=== PATIENT | male | born 1940 | race Caucasian/White ===

== ENCOUNTER 2021-05-14 14:56 | Observation (INO) | payer MEDICARE, SELFPAY ==
[2021-05-14] VITALS (26 sets, daily range): BP systolic 145–193; BP diastolic 72–95; PULSE 62–87; RESP 10–22; TEMP 36.3; O2SAT 92–99
--- NOTE | ~2021-05-14 | CT_ITS ---
EXAMINATION: CTA chest PE protocol DATE: 05/14/2021 18:35 WELFARE WORKER INDICATION: Chest pain and shortness of breath TECHNIQUE: Computed tomographic angiography (CTA) of the chest was performed with 100 mL Omnipaque-35 0 intravenous contrast. The dose-length product was 548.80 mGy-cm. Maximum intensity projection 3D-re constructions of the aorta and other arteries were constructed by the technologist on a separate work station.. Automated exposure control and iterative reconstruction technique were employed. COMPARISON: Chest dated 05/14/2021. FINDINGS: Study is technically adequate without evidence for pulmonary embolism. No significant pleur al or pericardial effusion. Heart size normal. No thoracic lymphadenopathy. No evidence for aortic an eurysm. There is atherosclerosis of the aorta and coronary arteries. No dissection identified. There are multiple liver and right renal cyst. There is an accessory splenule medial to the spleen. There i s moderate-severe emphysema. No endobronchial lesions. No pneumothorax. No focal airspace disease. Th ere is moderate thoracic spondylosis. IMPRESSION: 1. No acute cardiopulmonary disease. No pneumothorax. 2: Emphysema. Reviewed, dictated and finalized at location A. ARE WORKER
--- NOTE | ~2021-05-14 | XR_ITS ---
EXAMINATION: XR chest 2V 05/14/2021 15:40 INDICATION: Chest pain PROCEDURE: 2 view chest COMPARISON: 04/15/2018 FINDINGS: The lungs are clear. The cardiomediastinal silhouette is within normal limits. There are no pleural effusions. There is no pneumothorax suspected. IMPRESSION: 1: NO ACUTE CARDIOPULMONARY DISEASE. Reviewed, dictated and finalized at location A. ALS MANAGER
--- NOTE | 2021-05-14 15:01 | ECG_ITS ---
Measurements Intervals [place] Rate: 73 P: 70 RI: 146 QRS: 55 QRSD: 109 T: 59 QT: 373 QTc: 412 Interpretive Statements SINUS RHYTHM VENTRICULAR PREMATURE COMPLEX LOW QRS VOLTAGE IN LIMB LEADS BORDERLINE R WAVE PROGRESSION, ANTERIOR LEADS BORDERLINE T WAVE ABNORMALITY- INFERIOR LEADS BORDERLINE ECG Electronically Signed On 05-14-2021 15:51:37 MENTAL HYGIENE CONSULTANT by Thomas Medina D.O.
[2021-05-14 15:27] LABS: Basophils Absolute Auto 0.1 K/mm3 (0.0-0.1); Basophils Percent Auto 0.9 % (0.2-1.2); Eosinophils Absolute Auto 0.3 K/mm3 (0-0.3); Eosinophils Percent Auto 5.7 % (0-4.4); Hematocrit 43.4 % (42.0-52.0); Hemoglobin 13.8 g/dL (14.0-18.0); Immature Granulocyte Absolute 0.02 K/mm3 (0.00-0.031); Immature Granulocyte Percent A 0.4 % (0-0.5); Lymphocytes Absolute Auto 1.13 K/mm3 (0.9-3.2); Mean Corpuscular HGB Conc 31.8 g/dl (32-36); Mean Corpuscular Hemoglobin 29.4 pg (26-34); Mean Corpuscular Volume 92.5 fl (80-100); Mean Platelet Volume 10.1 fl (7.4-10.4); Monocytes Absolute Auto 0.5 K/mm3 (0.1-0.6); Monocytes Percent Auto 8.7 % (2.6-8.5); Neutrophils Absolute Auto 3.7 K/mm3 (1.3-6.7); Neutrophils Percent Auto 64.3 % (45.5-73.1); Platelet Count Result 155 k/mm3 (150-375); Red Blood Count 4.69 M/mm3 (4.6-6.20); White Blood Count 5.7 K/mm3 (4.5-10.0)
[2021-05-14 15:36] LABS: Alanine Aminotransferase 28 U/L (4-50); Albumin Level 4.5 g/dL (3.5-5.1); Alkaline Phosphatase 111 U/L (38-126); Anion Gap 6 mmol/L (8-16); Aspartate Amino Transferase 25 U/L (17-59); Bilirubin,Total 0.4 mg/dL (0.2-1.3); Blood Urea Nitrogen 25 mg/dL (9-20); Calcium 9.5 mg/dL (8.4-10.2); Carbon Dioxide 25 mmol/L (22-30); Chloride 108 mmol/L (98-107); Estimated CRCL calculation 34 ml/min; Estimated Glomerular Filt Rate 42; Glucose 211 mg/dL (65-110); INR 1.1; Lipase 190 U/L (23-300); Potassium 4.5 mmol/L (3.4-5.0); Prothrombin Time 13.9 Seconds (11.1-14.7); Sodium 139 mmol/L (137-145)
[2021-05-14 15:37] LABS: Partial Thromboplastin Time 25.4 SECONDS (22.3-36.8)
[2021-05-14 15:47] LABS: Troponin I 0.025 ng/mL (0.000-0.034)
--- NOTE | 2021-05-14 17:09 | ED.CHESTPAIN ---
HPI - Chest Pain General Chief Complaint: Chest Pain Stated Complaint: CP Time Seen by Provider: 05/14/21 16:36 Source: patient and RN notes reviewed Mode of arrival: ambulatory Limitations: no limitations History of Present Illness HPI narrative: This is a 80 year old male with history of COPD, hypertension, CAD s/p stent, DM who presents for evaluation of chest pain and shortness of breath. He has noticed that he is short of breath with walking since Tuesday. He also reports associated pain across his chest that he describes as pressure. His symptoms resolve with rest. He states he had a stress test performed April 29 due to concern about an arrhythmia. He states his stress test was normal, but his bench mechanic increased his carvedilol to 6.5 mg twice a day. He had 2 coronary stents placed years ago. He denies cough, fever, chills, nausea or vomiting. He states he was told to come to ER for evaluation, and his bench mechanic is Dr. Yee at [facility]. Related Data Home Medications Medication Instructions Recorded Confirmed aspirin 325 mg PO DAILY 05/14/21 atorvastatin HS 05/14/21 carvedilol BID 05/14/21 dapagliflozin [Farxiga] mg DAILY 05/14/21 doxazosin mg HS 05/14/21 fluticasone furoate-vilanterol INHALATION 05/14/21 [Breo Ellipta] glipizide mg 05/14/21 losartan 05/14/21 pantoprazole PO 05/14/21 sitagliptin [Januvia] mg 05/14/21 Allergies Allergy/AdvReac Type Severity Reaction Status Date / Time No Known Allergies Allergy Unverified 05/14/21 16:32 Review of Systems Review of Systems: All systems reviewed & are unremarkable except as noted in HPI and below PMFSH Past Medical History Medical History (Updated 05/14/21 @ 20:06 by Kassidy Bahena MD) CAD (coronary artery disease) Chronic kidney disease COPD (chronic obstructive pulmonary disease) Diabetes mellitus Hypertension Social History Social History (Updated 05/14/21 @ 17:45 by Kassidy Bahena MD) Smoking status: Former smoker Exam Narrative: GENERAL: Well-appearing, well-nourished, and in no acute distress. HEAD: Normocephalic, atraumatic EYES: PERRLA and EOMI, conjunctiva clear without discharge THROAT:Mucous membranes moist, Oropharynx normal without erythema, exudate, peritonsillar swelling or fluctuance NECK: Supple, without lymphadenopathy or mass RESPIRATORY: No respiratory distress, Airway patent, Respirations non-labored, Clear to auscultation without rales, rhonchi or wheeze HEART: Regular rate and rhythm. No murmur heard. Normal peripheral pulses. ABDOMEN: Soft, nontender, nondistended, normal active bowel sounds. No masses. No rebound or guarding, No organomegaly. EXTREMITIES: No edema, normal strength with full range of motion. SKIN: Warm, dry, normal color without rash NEURO: Alert and oriented x3. CN 2-12 grossly intact. No focal deficits. PSYCH: Normal mood and affect. Course Reevaluation(s) Reevaluation #1: I Discussed with patient that he needs to be obs and have evaluation by cardiology. He is agreeable to admission at [facility] and evaluation by bench mechanic at this facility. He has taken aspirin 325 mg today at home already. Date: 05/14/21 Time: 20:04 Consultations Consultation #1: I discussed case with Dr. Pike who agrees to consult of patient for angina. Patient should be NPO after midnight. Recommend giving dose of lovenox 1 time tonight. Date: 05/14/21 Time: 20:05 Vital Signs Vital signs: Vital Signs Temperature 97.3 F L 05/14/21 14:58 Pulse Rate 85 05/14/21 14:58 Respiratory Rate 14 05/14/21 14:58 Blood Pressure 193/95 H 05/14/21 14:58 Pulse Oximetry 99 05/14/21 14:58 Temperature 97.3 F L 05/14/21 14:58 Pulse Rate 79 05/14/21 21:31 Respiratory Rate 13 05/14/21 21:31 Blood Pressure 146/74 H 05/14/21 21:31 Pulse Oximetry 93 05/14/21 21:31 MDM - Chest Pain Lab Data Attestation: I reviewed the patient's lab results. Result diagr
[2021-05-14 17:51] LABS: D Dimer 0.76 ug/mL (<0.48)
[2021-05-14 19:36] LABS: Troponin I 0.035 ng/mL (0.000-0.034)
[2021-05-14] MEDS: ENOXAPARIN 80 MG/0.8 ML SYRINGE SUB-Q (20:38)
[2021-05-14 20:42] LABS: Glucose Point of Care 127 mg/dl (65-105)
[2021-05-14 23:17] LABS: Troponin I 0.042 ng/mL (0.000-0.034)
--- NOTE | 2021-05-14 23:50 | PC.NURSE ---
Dr. Archer paged to inform him of elevated troponin
[2021-05-15] VITALS (53 sets, daily range): BP systolic 131–179; BP diastolic 59–94; PULSE 61–114; RESP 9–20; TEMP 36.6–36.9; O2SAT 94–100; BMI 26.4
--- NOTE | 2021-05-15 02:56 | PM.IMHP ---
H&P: HPI History of Present Illness Date/Time: 05/15/21 02:56 Chief Complaint: Chest pain Narrative: This is a 80 year old male with history of COPD, hypertension, CAD s/p stent in 2018, DM on oral hypoglycemic agent presents to the ED for evaluation of chest pain and shortness of breath that started noticing since past few days. He recently had visit to his power grader operator and had a stress test done in April 29, 2021 for some skipped beats that he was getting. The stress test was completely normal. He noticed some shortness of breath with ambulation associated with chest discomfort which is pressure-like as it describes and resolves with rest. He called his power grader operator with regard to his symptoms and hence was referred to the ER for evaluation. He denies any fever chills cough nausea vomiting abdominal pain. His power grader operator is Dr. Yee at [facility]. Review of Systems Review of Systems: - CONSTITUTIONAL: Denies weight loss, fever and chills. - HEENT: Denies changes in vision and hearing - RESPIRATORY: Reports SOB and denies cough. - CV: Denies palpitations and reports CP. - GI: Denies abdominal pain, nausea, vomiting and diarrhea. - : Denies dysuria and urinary frequency. - MSK: Denies myalgia and joint pain. - SKIN: Denies rash and pruritus. - NEUROLOGICAL: Denies headache and syncope. - PSYCHIATRIC: Denies recent changes in mood. Denies anxiety and depression. All systems reviewed & are unremarkable except as noted in HPI and below Constitutional: Constitutional: Reports fatigue and Reports weakness Neurologic: Reports weakness Endocrine: Endocrine: Reports fatigue [facility], [facility] Past Medical History Medical History (Updated 05/15/21 @ 03:05 by Biju Archer MD) CAD (coronary artery disease) Chronic kidney disease COPD (chronic obstructive pulmonary disease) Diabetes mellitus Hypertension Social History Social History (Updated 05/14/21 @ 17:45 by Kassidy Bahena MD) Smoking status: Former smoker Meds Home Medications and Allergies Home Medications Medication Instructions Recorded Confirmed Type aspirin 325 mg PO DAILY 05/14/21 History atorvastatin HS 05/14/21 History carvedilol BID 05/14/21 History dapagliflozin [Farxiga] mg DAILY 05/14/21 History doxazosin mg HS 05/14/21 History fluticasone furoate-vilanterol INHALATION 05/14/21 History [Breo Ellipta] glipizide mg 05/14/21 History losartan 05/14/21 History pantoprazole PO 05/14/21 History sitagliptin [Januvia] mg 05/14/21 History Allergies Allergy/AdvReac Type Severity Reaction Status Date / Time No Known Allergies Allergy Unverified 05/14/21 16:32 Vital Signs Vital Signs - 24 hr 05/14/21 14:58 05/14/21 16:33 05/14/21 16:45 Temperature 97.3 F L Pulse Rate 85 75 72 Respiratory Rate 14 22 H 21 H Blood Pressure 193/95 H Pulse Oximetry 99 96 96 05/14/21 16:57 05/14/21 17:00 05/14/21 17:01 Temperature Pulse Rate 66 69 Respiratory Rate 12 10 L Blood Pressure 152/72 H Pulse Oximetry 97 96 96 05/14/21 17:15 05/14/21 17:16 05/14/21 17:33 Temperature Pulse Rate 66 65 70 Respiratory Rate 12 12 16 Blood Pressure 162/82 H Pulse Oximetry 95 94 98 05/14/21 17:45 05/14/21 17:46 05/14/21 17:47 Temperature Pulse Rate 63 62 65 Respiratory Rate 12 12 13 Blood Pressure 159/81 H Pulse Oximetry 94 93 95 05/14/21 18:10 05/14/21 18:16 05/14/21 18:32 Temperature Pulse Rate 67 72 79 Respiratory Rate 16 Blood Pressure Pulse Oximetry 97 99 98 05/14/21 18:34 05/14/21 19:31 05/14/21 20:39 Temperature Pulse Rate 80 75 85 Respiratory Rate 16 15 20 Blood Pressure 170/90 H 158/78 H 179/95 H Pulse Oximetry 98 96 96 05/14/21 21:31 05/14/21 23:56 Temperature Pulse Rate 79 78 Respiratory Rate 13 20 Blood Pressure 146/74 H 145/74 H Pulse Oximetry 93 96 Exam Narrative: GENERAL: Well-appearing, well-nourished, and in no acute distress.
[2021-05-15 05:58] LABS: Basophils Absolute Auto 0.1 K/mm3 (0.0-0.1); Basophils Percent Auto 0.8 % (0.2-1.2); Eosinophils Absolute Auto 0.3 K/mm3 (0-0.3); Eosinophils Percent Auto 5.2 % (0-4.4); Hemoglobin 13.1 g/dL (14.0-18.0); Immature Granulocyte Absolute 0.02 K/mm3 (0.00-0.031); Immature Granulocyte Percent A 0.3 % (0-0.5); Lymphocytes Absolute Auto 1.11 K/mm3 (0.9-3.2); Lymphocytes Percent Auto 18.6 % (18.3-44.2); Mean Corpuscular Hemoglobin 29.3 pg (26-34); Mean Corpuscular Volume 91.7 fl (80-100); Mean Platelet Volume 10.4 fl (7.4-10.4); Monocytes Absolute Auto 0.6 K/mm3 (0.1-0.6); Monocytes Percent Auto 9.4 % (2.6-8.5); Neutrophils Absolute Auto 3.9 K/mm3 (1.3-6.7); Neutrophils Percent Auto 65.7 % (45.5-73.1); Platelet Count Result 161 k/mm3 (150-375); Red Blood Count 4.47 M/mm3 (4.6-6.20); Red Cell Distribution Width 13.8 % (11.5-14.5)
[2021-05-15 06:06] LABS: Alanine Aminotransferase 26 U/L (4-50); Albumin Level 3.9 g/dL (3.5-5.1); Alkaline Phosphatase 98 U/L (38-126); Anion Gap 5 mmol/L (8-16); Aspartate Amino Transferase 25 U/L (17-59); Bilirubin,Total 0.4 mg/dL (0.2-1.3); Blood Urea Nitrogen 24 mg/dL (9-20); Calcium 9.2 mg/dL (8.4-10.2); Carbon Dioxide 28 mmol/L (22-30); Chloride 106 mmol/L (98-107); Estimated CRCL calculation 39 ml/min; Estimated Glomerular Filt Rate 49; Glucose 161 mg/dL (65-110); Sodium 139 mmol/L (137-145)
[2021-05-15 06:10] LABS: Cholesterol 143 mg/dL (0-200); HDL Direct 39 mg/dL; Triglycerides 171 mg/dL (<150)
[2021-05-15 06:22] LABS: LDL Cholesterol Direct 72 mg/dL
[2021-05-15] MEDS: ASPIRIN 325 MG TABLET PO (08:02)
[2021-05-15] MEDS: carvediloL 3.125 MG TABLET BY MOUTH (08:02)
--- NOTE | 2021-05-15 08:17 | PC.NURSE ---
patient transferred to bathroom via wheelchair. well tolerated.
[2021-05-15 08:40] LABS: Glucose Point of Care 182 mg/dl (65-105)
[2021-05-15] MEDS: PANTOPRAZOLE 40 MG TABLET PO (08:51)
[2021-05-15] MEDS: LOSARTAN POTASSIUM 100 MG TABLET BY MOUTH (08:51)
--- NOTE | 2021-05-15 10:15 | PC.NURSE ---
dr forrest evaluated pt in ed. plan of care is for pt to go to [facility]. at bedside. pt continues to deny chest pain. coreg order for 6.25 addressed with metal cans supervisor. states will order. original med rec put in computer wrong for 3.125
--- NOTE | 2021-05-15 11:11 | PM.IMPN ---
Progress Note: A&P Assessment and Plan (1) Chest pain: Code(s): R07.9 - Chest pain, unspecified Status: Acute Assessment and Plan: # non ST-elevation RI presented with chest pain and shortness of breath she has exertional initial troponin was negative with continued trend upwards. Received a Lovenox shot 80 mg cardiology has been consulted received 325 aspirin will continue aspirin 81 mg in the morning morphine p.r.n. nitroglycerin p.r.n. for chest pain currently chest pain-free. Recent stress test was negative. Further angiographic in evaluation per Cardiology in the morning will keep him NPO. Patient received 1 dose of therapeutic Lovenox pending cardiology eval for today (2) Elevated troponin: Code(s): R77.8 - Other specified abnormalities of plasma proteins Status: Acute Assessment and Plan: As above CT scan of the chest is negative (3) Chronic kidney disease: Code(s): N18.9 - Chronic kidney disease, unspecified Status: Inactive Assessment and Plan: Probably secondary to diabetes monitor avoid nephrotoxic medication (4) Diabetes mellitus: Code(s): E11.9 - Type 2 diabetes mellitus without complications Status: Inactive Assessment and Plan: Insulin sliding scale (5) COPD (chronic obstructive pulmonary disease): Code(s): J44.9 - Chronic obstructive pulmonary disease, unspecified Status: Inactive Assessment and Plan: Stable (6) Hypertension: Code(s): I10 - Essential (primary) hypertension Status: Inactive Assessment and Plan: Continue home medication Subjective Date/time seen: 05/15/21 11:11 Interval history: Patient seen and examined Patient feels weak today Patient denies fever headache shortness of breath I am seeing the patient for elevated troponin Exam Narrative: Alert Chest no wheeze crackles Abdomen nontender nondistended CVS S1 + S2 Lower extremity edema Objective Data Vital Signs Vital Signs: Vital Signs - 24 hr 05/14/21 14:58 05/14/21 16:33 05/14/21 16:45 Temperature 97.3 F L Pulse Rate 85 75 72 Respiratory Rate 14 22 H 21 H Blood Pressure 193/95 H Pulse Oximetry 99 96 96 05/14/21 16:57 05/14/21 17:00 05/14/21 17:01 Temperature Pulse Rate 66 69 Respiratory Rate 12 10 L Blood Pressure 152/72 H Pulse Oximetry 97 96 96 05/14/21 17:15 12/16/21 17:16 05/14/21 17:33 Temperature Pulse Rate 66 65 70 Respiratory Rate 12 12 16 Blood Pressure 162/82 H Pulse Oximetry 95 94 98 05/14/21 17:45 05/14/21 17:46 05/14/21 17:47 Temperature Pulse Rate 63 62 65 Respiratory Rate 12 12 13 Blood Pressure 159/81 H Pulse Oximetry 94 93 95 05/14/21 18:10 05/14/21 18:16 05/14/21 18:32 Temperature Pulse Rate 67 72 79 Respiratory Rate 16 Blood Pressure Pulse Oximetry 97 99 98 05/14/21 18:34 05/14/21 19:31 05/14/21 20:39 Temperature Pulse Rate 80 75 85 Respiratory Rate 16 15 20 Blood Pressure 170/90 H 158/78 H 179/95 H Pulse Oximetry 98 96 96 05/14/21 21:31 05/14/21 21:32 05/14/21 21:50 Temperature Pulse Rate 79 74 77 Respiratory Rate 13 13 16 Blood Pressure 146/74 H Pulse Oximetry 93 92 92 05/14/21 22:23 05/14/21 22:30 05/14/21 22:45 Temperature Pulse Rate 77 75 74 Respiratory Rate 13 11 L 13 Blood Pressure Pulse Oximetry 94 94 93 05/14/21 23:36 05/14/21 23:56 05/15/21 01:10 Temperature Pulse Rate 87 78 78 Respiratory Rate 14 20 13 Blood Pressure 145/74 H Pulse Oximetry 92 96 96 05/15/21 01:11 05/15/21 01:15 05/15/21 01:32 Temperature Pulse Rate 75 72 69 Respiratory Rate 12 14 13 Blood Pressure 151/68 H Pulse Oximetry 96 94 95 05/15/21 01:52 05/15/21 02:00 05/15/21 02:01 Temperature Pulse Rate 74 64 74 Respiratory Rate 15 12 13 Blood Pressure 131/74 Pulse Oximetry 96 05/15/21 02:15 05/15/21 02:30 05/15/21 02:45 Temperature Pulse Rate 64 63 63 Respiratory R
--- NOTE | 2021-05-15 11:46 | PM.CNCAR ---
Assessment and Plan Assessment and plan (1) Non-ST elevation ME (NSTEMI): Code(s): I21.4 - Non-ST elevation (NSTEMI) myocardial infarction Status: Acute Assessment and Plan: History of CAD with previously placed stent remotely, last left heart catheterization 2015 mild LAD disease per Dr. Yee his Blow Mold Operator with whom I spoke) presenting with unstable angina, elevated troponin consistent with non ST elevation myocardial infarction. Extensive discussion held with patient and his at bedside. He had a negative Lexiscan nuclear stress test is the 2020 EF 62% reported. Given this this and his abrupt a progressive symptom development suggestive of unstable plaque with progressive symptoms. Invasive angiography advised for delineation of his coronary anatomy with anticipated percutaneous intervention and stent implantation. Patient and his verbalized understanding. All questions answered to their satisfaction. Risks, benefits, alternatives was again reviewed. Patient is very familiar with this procedure and the associated risks. Spoke with his bus greaser who also agrees with angiography. Discussed with Dr. Eldridge my Interventional partner who is also in agreement. -CT angiogram of the chest negative for PE pulmonary embolism per ER workup. -ASA 81 mg daily, anticipate dual antiplatelet therapy thereafter. Continue carvedilol 6.25 mg twice daily. Increase atorvastatin to 80 mg at bedtime. LDL 72 goal less than 70. BP elevated. Will reassess with adjustment medical therapy as appropriate post angiography. 2D echocardiogram. Keep patient NPO. As patient will proceed to cardiac catheterization lab very soon will hold off on full systemic anticoagulation. (2) CAD (coronary artery disease): Code(s): I25.10 - Atherosclerotic heart disease of [place] coronary artery without angina pectoris Status: Acute Assessment and Plan: As above. Aggressive secondary risk factor modification. Recommendation to follow after coronary angiography. We did discuss possibility of focal culprit lesion amenable to stent implantation versus the less likely scenario of severe multivessel coronary disease in which case bypass surgery may be warranted. We discussed this is a possibility given no ischemia on his stress test which may have been a reflection of balanced ischemia. However, given preserved LV function as reported this would appear to be less likely but nonetheless a consideration. Recommendations to follow. (3) Hypertension associated with type 2 diabetes mellitus: Code(s): E11.59 - Type 2 diabetes mellitus with other circulatory complications; I15.2 - Hypertension secondary to endocrine disorders Status: Acute Assessment and Plan: As above, BP elevated. Further recommendations and adjustment medical therapy is appropriate post angiography. (4) Mixed hyperlipidemia due to type 2 diabetes mellitus: Code(s): E11.69 - Type 2 diabetes mellitus with other specified complication; E78.2 - Mixed hyperlipidemia Status: Acute Assessment and Plan: Increased atorvastatin 80 mg at bedtime goal LDL less than 70. (5) PVCs (premature ventricular contractions): Code(s): I49.3 - Ventricular premature depolarization Status: Acute Assessment and Plan: Continue beta-mathew therapy. Telemetry. Adjust medical therapy as appropriate. (6) CKD stage 3 due to type 2 diabetes mellitus: Code(s): E11.22 - Type 2 diabetes mellitus with diabetic chronic kidney disease; N18.30 - Chronic kidney disease, stage 3 unspecified Status: Acute Assessment and Plan: Close observation renal function and electrolytes, monitor BMP. History of Present Illness History of Present Illness Consult date/time: Date of service: 05/15/21 11:46 Cardiology consultation at the request of Dr. Archer of the [facility] service for opinion regarding chest pain and elevated troponin.
[2021-05-15 12:02] LABS: Glucose Point of Care 167 mg/dl (65-105)
--- NOTE | 2021-05-15 12:17 | PC.NURSE ---
patient transferred to laboratory animal caretaker via bedcart with cardiology personnel. patient continues to deny pain at rest and resting comfortably. Patient denies needs at this time.
--- NOTE | 2021-05-15 12:26 | PC.NURSE ---
ARTEMIO IN CCL AWARE OF PT RM ASSIGNMENT.
--- NOTE | 2021-05-15 12:30 | WPDHPUPDATE1 ---
History and Physical Update Update Date/Time: 05/15/21 1230pm History and Physical has been reviewed, including an updated exam of the patient. There are NO changes in the patient's condition. Risks, benefits, and alternatives have been discussed and questions answered. Patient agrees to proceed with procedure.
--- NOTE | 2021-05-15 14:00 | WPDMODSED ---
Moderate Sedation Note-Pt Data Patient Data Allergies Allergy/AdvReac Type Severity Reaction Status Date / Time No Known Allergies Allergy Unverified 05/14/21 16:32 Home Medications Medication Instructions Recorded Confirmed Type aspirin 325 mg PO DAILY 05/14/21 History atorvastatin HS 05/14/21 History dapagliflozin [Farxiga] mg DAILY 05/14/21 History doxazosin mg HS 05/14/21 History fluticasone furoate-vilanterol INHALATION 05/14/21 History [Breo Ellipta] glipizide mg 05/14/21 History losartan 05/14/21 History pantoprazole PO 05/14/21 History sitagliptin [Januvia] mg 05/14/21 History carvedilol 6.25 mg PO BID 05/15/21 History Current Medications: Active Medications Aspirin (Aspirin 81 Mg Chewable Tablet) 81 mg PO DAILY@0800 [facility] Last Admin: 05/15/21 08:36 Dose: Not Given Documented by: Atorvastatin Calcium (Atorvastatin 40 Mg Tablet) 80 mg BY MOUTH HS [facility] Carvedilol (Carvedilol 6.25 Mg Tablet) 6.25 mg BY MOUTH BIDWM [facility] Dextrose (Dextrose 50% 25 Gm/50 Ml Syringe) 12.5 gm IV PUSH PRN PRN; Protocol PRN Reason: Hypoglycemia Doxazosin Mesylate (Doxazosin Mesylate 4 Mg Tablet) 8 mg BY MOUTH HS [facility] Glucagon (Glucagon For Inj 1 Mg Vial) 1 mg IM PRN PRN; Protocol PRN Reason: Hypoglycemia Glucose (Glucose Oral Gel 15 Gm Of Glucse In 37.5 Gm Tube) 15 gm PO PRN PRN; Protocol PRN Reason: Hypoglycemia Acetaminophen (Ofirmev 1,000 Mg Ivpb) 1,000 mg in 100 mls @ 400 mls/hr IVPB Q6H PRN PRN Reason: Mild Pain (1-3) or Fever Stop: 05/15/21 20:20 Dextrose (Dextrose 5% 1,000 Ml) 1,000 mls @ 100 mls/hr IVPB PRN PRN; Protocol PRN Reason: Hypoglycemia Insulin Aspart (Insulin Aspart (*Bkc) 100 Units/Ml) 2 - 5 units SUB-Q TIDWM [facility]; Protocol Last Admin: 05/15/21 13:07 Dose: Not Given Documented by: Losartan Potassium (Losartan Potassium 100 Mg Tablet) 100 mg BY MOUTH DAILY [facility] Last Admin: 05/15/21 08:51 Dose: 100 mg Documented by: Morphine Sulfate (Morphine Sulfate (*Crx) 4 Mg/Ml Inj) 4 mg IV PUSH Q2H PRN PRN Reason: Pain Rated 7-10 Nitroglycerin (Nitroglycerin Sl 0.4 Mg Tablet) 0.4 mg SUBLINGUAL Q5MIN PRN PRN Reason: Chest Pain Non-Formulary Medication (Fluticasone Furoate-Vilanterol [Breo Ellipta]) 2 inhalation INHALATION BID [facility] Stop: 06/14/21 08:59 Pantoprazole Sodium (Pantoprazole 40 Mg Tablet) 40 mg PO QAM [facility] Last Admin: 05/15/21 08:51 Dose: 40 mg Documented by: Sedation/Anesthesia: No previous sedation/anesthesia problems (including family history). [facility] Past Medical History Medical History CAD (coronary artery disease) Chronic kidney disease COPD (chronic obstructive pulmonary disease) Diabetes mellitus Hypertension Social History Social History Smoking status: Former smoker Mod Sed Physical Exam Physical Exam Pre Procedural Exam: Normal: Appearance, Eyes, Ears, Nose, Neck, Throat, Airway, Lungs, Heart Size, Heart Rate, Heart Rhythm, Neuro Exam, Abdomen, Liver, Kidneys, Spleen, Breasts, Genitalia, Extremities and Skin Hours since solid foods: 8 Hours since liquid intake: 8 Mallampati Classification: class 1 Internal Medicine - PN: Obj Da Vital Signs Vital Signs: Vital Signs - 24 hr 05/14/21 14:58 05/14/21 16:33 05/14/21 16:45 Temperature 36.3 C L Pulse Rate 85 75 72 Respiratory Rate 14 22 H 21 H Blood Pressure 193/95 H Pulse Oximetry 99 96 96 05/14/21 16:57 05/14/21 17:00 05/14/21 17:01 Temperature Pulse Rate 66 69 Respiratory Rate 12 10 L Blood Pressure 152/72 H Pulse Oximetry 97 96 96 05/14/21 17:15 05/14/21 17:16 05/14/21 17:33 Temperature Pulse Rate 66 65 70 Respiratory Rate 12 12 16 Blood Pressure 162/82 H Pulse Oximetry 95 94 98 05/14/21 17:45 05/14/21 17:46 05/14/21 17:47 Temperature Pulse Rate 63 62 65 Respiratory Rate 12 12 13 Blood Pressure 159/81 H Pulse Oximetry 94 93 95 05/14/21 18:10 1
--- NOTE | 2021-05-15 14:00 | WPDCARDPROC ---
Cardiac Cath Procedure Note Date of procedure:: 05/15/21 Performing physician:: Ludin Eldridge MD date of service 05/15/2021 Indication:: NSTEMI Brief clinical history:: Patient is a very pleasant 80-year-old male with a past medical history significant for hypertension, diabetes mellitus type 2, dyslipidemia, COPD, history of CAD with remote stent implantation 2011, coronary angiography 2015 with patent stents and mild LAD disease as reported who states he was in his usual state of health when he began to experience intermittent palpitations which was concerning. This is felt to be secondary to premature ventricular contractions for which a 48 hour Holter monitor was obtained. Given this finding a Lexiscan stress test was appropriately advised by his loom winder tender Dr. Yee which revealed normal perfusion and ejection fraction 62% as reported. Patient states this past Tuesday he experienced new significant exertional dyspnea while walking down the stairs which persisted for several minutes. This was not associated with chest pain, nausea, or diaphoresis. He states the then felt better but had also noted prior to this increased frequency of belching. To that end, he purchased Gas-X thinking this may help but did not improve those symptoms. He felt better the following day yet been he began to experience intermittent episodes of significant limiting shortness of breath. This happened 2 or 3 other times the day of presentation began to experience significant substernal chest pressure with activity with severe limiting shortness of breath even walking across the room. The symptoms would resolve after for 5 minutes with rest but recur with any activity. He then contacted his loom winder tender's office who recommended he present to the nearest emergency department. He presented on 05/14/2021 and has remained asymptomatic subsequently with a peak troponin 0.092. His 12 lead EKG revealed sinus rhythm, PVC, nonspecific changes but no ST elevations. He has no other complaints at this time and is feeling well. He has also noted his blood pressure elevating of late with ongoing PVCs. His daughter was on the phone throughout the interview also providing additional history including her concerns with regards to PVCs, possible bigeminy, his belching symptoms and corroborating patient's historical account. His was also bedside who agreed. Procedure Procedure performed:: 1-Moderate sedation that started at 1247p.m. and ended at 1:51 p.m.using 2 mg of Versed and 50mcg fentanyl. The registered nurse was annette brooks, 2-Selective left and right coronary angiogram. 3-Left heart catheterization with measurement of LVEDP and measurement of gradient across aortic valve. 4-Right common femoral arterial angiogram. 5-Deployment of 6 Green[place]ic Angio-Seal. 6- intravascular ultrasound of the left circumflex artery. 7- deployment of drug-eluting stent 4.5 x 26 covering proximal and midportion the left circumflex artery. Deployment under normal pressure for 35 seconds. Sedation/Medication given:: Moderate sedation. Access site:: Right common femoral artery. Estimated blood loss:: 10cc Procedure note:: After informed consent patient was brought in to manager cath lab with the was draped and prepped in usual manner. Moderate sedation was given and the right groin was infiltrated using 1% lidocaine. Five Green[place]ic sheath was obtained using micropuncture needle and the modified Seldinger technique. Selective left coronary angiogram was done using JL4 catheter with the tip of the catheter placed in the left main coronary artery. Selective right coronary angiogram was done using JR4 catheter with the tip of the catheter placed to the right coronary artery. After that 5 Greenlandic pigtail catheter was advanced across the aortic valve into the left ventricle with measurement of LVEDP and measurement of gradient across aortic valve. Right common femoral arterial angiogram was done. After that the 5 Rip
[2021-05-15 17:49] LABS: Glucose Point of Care 207 mg/dl (65-105)
[2021-05-15] MEDS: INSULIN ASPART (*BKC) 100 UNITS/ML SUB-Q (17:51)
[2021-05-15] MEDS: SODIUM CHLORIDE 0.9% IV 1,000 ML 100 ML IV CONT (17:56)
[2021-05-15] MEDS: carvediloL 6.25 MG TABLET BY MOUTH (18:19)
--- NOTE | 2021-05-15 19:24 | ADMGEN ---
This patient, Lv Henriquez, was admitted to IMU Room 206-02. Patient/family oriented to hospital policies and general routines including ID bracelet, bed and alarms, visiting hours, pain management, procedures, bathroom and other care routines, personal items, smoking policy, room service/diet, and visiting hours. Information on how to activate the Rapid Response Team has been discussed. Patient/Family are encouraged to report perceived risks to care and to ask questions if they do not understand what they are told or what they should do.
[2021-05-15 20:29] LABS: Glucose Point of Care 252 mg/dl (65-105)
[2021-05-15] MEDS: TICAGRELOR 90 MG TABLET PO (21:06)
[2021-05-15] MEDS: ATORVASTATIN 40 MG TABLET 80 MG BY MOUTH (21:31)
[2021-05-15] MEDS: DOXAZOSIN MESYLATE 4 MG TABLET 8 MG BY MOUTH (21:31)
[2021-05-16] VITALS (9 sets, daily range): BP systolic 119–161; BP diastolic 74–85; PULSE 70–108; RESP 16–18; TEMP 36.1–36.9; O2SAT 94–98
[2021-05-16 05:43] LABS: Anion Gap 10 mmol/L (8-16); Blood Urea Nitrogen 23 mg/dL (9-20); Calcium 8.7 mg/dL (8.4-10.2); Carbon Dioxide 22 mmol/L (22-30); Chloride 110 mmol/L (98-107); Estimated CRCL calculation 39 ml/min; Estimated Glomerular Filt Rate 49; Glucose 198 mg/dL (65-110); Potassium 3.9 mmol/L (3.4-5.0); Sodium 142 mmol/L (137-145)
[2021-05-16 05:46] LABS: Basophils Percent Auto 0.4 % (0.2-1.2); Eosinophils Absolute Auto 0.2 K/mm3 (0-0.3); Eosinophils Percent Auto 2.7 % (0-4.4); Hematocrit 41.4 % (42.0-52.0); Hemoglobin 13.2 g/dL (14.0-18.0); Immature Granulocyte Absolute 0.03 K/mm3 (0.00-0.031); Immature Granulocyte Percent A 0.4 % (0-0.5); Lymphocytes Absolute Auto 0.74 K/mm3 (0.9-3.2); Lymphocytes Percent Auto 10.7 % (18.3-44.2); Mean Corpuscular HGB Conc 31.9 g/dl (32-36); Mean Corpuscular Hemoglobin 29.1 pg (26-34); Mean Corpuscular Volume 91.4 fl (80-100); Mean Platelet Volume 10.3 fl (7.4-10.4); Monocytes Absolute Auto 0.5 K/mm3 (0.1-0.6); Monocytes Percent Auto 7.6 % (2.6-8.5); Neutrophils Absolute Auto 5.4 K/mm3 (1.3-6.7); Neutrophils Percent Auto 78.2 % (45.5-73.1); Platelet Count Result 157 k/mm3 (150-375); Red Blood Count 4.53 M/mm3 (4.6-6.20); Red Cell Distribution Width 13.8 % (11.5-14.5); White Blood Count 6.9 K/mm3 (4.5-10.0)
--- NOTE | 2021-05-16 07:00 | ECG_ITS ---
Measurements Intervals [place] Rate: 83 P: 62 VA: 116 QRS: 37 QRSD: 101 T: 67 QT: 388 QTc: 458 Interpretive Statements SINUS RHYTHM WITH SHORT VA INTERVAL LOW QRS VOLTAGE IN LIMB LEADS BORDERLINE ST-T WAVE ABNORMALITY- DIFFUSE LEADS BASELINE ARTIFACT- V1, V5-V6 BORDERLINE ECG Electronically Signed On 05-16-2021 11:57:56 [employer] by Thomas Medina D.O.
[2021-05-16 09:34] LABS: Glucose Point of Care 183 mg/dl (65-105)
--- NOTE | 2021-05-16 09:51 | PM.PNCARD ---
Progress Note: A&P Assessment and Plan (1) Non-ST elevation [place] (NSTEMI): Code(s): I21.4 - Non-ST elevation (NSTEMI) myocardial infarction Status: Acute Assessment and Plan: History of CAD with previously placed stent remotely, last left heart catheterization 2016 mild L[address] disease per Dr. Yee his Clerical Transcriber. Presenting with unstable angina, NSTEMI Cardiac catheterization yesterday showed patent Left anterior descending stent, probable chronic total occlusion of the ramus which fills by collaterals, and significant stenosis with a large circumflex which was stented by Dr. Martin. Echo pending Sounds like he might have developed some mild CHF since he complained of some orthopnea, however his lungs are clear. No mitral regurgitant murmur. Since renal fxn stable, I will give one dose furosemide 40 mg po Continue aspirin and Brilinta without fail for 1 year. If Brilinta is not covered by insurance, call and he may switch to Plavix after the 1st month. Patient and his daughter Charlene (by phone) were counseled extensively. Echo showed segmental wall motion abnormalities (though not laterally as I would have expected), but overall good LV fxn and no significant valve disease. Hope to discharge today Follow-up with usual bit bender, , in 1-2 weeks. No exercise for 1 week, then gradually and slowly resume. (2) CAD (coronary artery disease): Code(s): I25.10 - Atherosclerotic heart disease of [place] coronary artery without angina pectoris Status: Acute Assessment and Plan: As above. Aggressive secondary risk factor modification. Atorvastatin increased to 80 mg daily. Continue carvedilol (3) Hypertension associated with type 2 diabetes mellitus: Code(s): E11.59 - Type 2 diabetes mellitus with other circulatory complications; I15.2 - Hypertension secondary to endocrine disorders Status: Acute Assessment and Plan: As above, BP elevated. (4) Mixed hyperlipidemia due to type 2 diabetes mellitus: Code(s): E11.69 - Type 2 diabetes mellitus with other specified complication; E78.2 - Mixed hyperlipidemia Status: Acute Assessment and Plan: Increased atorvastatin 80 mg at bedtime goal LDL less than 70. (5) PVCs (premature ventricular contractions): Code(s): I49.3 - Ventricular premature depolarization Status: Acute Assessment and Plan: Continue beta-mathew therapy. (6) CKD stage 3 due to type 2 diabetes mellitus: Code(s): E11.22 - Type 2 diabetes mellitus with diabetic chronic kidney disease; N18.30 - Chronic kidney disease, stage 3 unspecified Status: Acute Assessment and Plan: Renal function remains stable despite IV contrast with chest CTA and cardiac catheterization. Subjective Date/time seen: 05/16/21 09:51 Interval history: FU for NSTEMI. Cardiac catheterization 05/15/2021 showed a patent stent in the Left anterior descending, a totally occluded ramus with collaterals, perhaps chronic, and a high-grade stenosis of the left circumflex, status post circumflex stent yesterday by Dr. Eldridge. Usually followed by his bit bender Dr. Yee. Also history of PVCs, diabetes, CKD stage 3. Date of service 05/16/2021: No chest discomfort. [place] some orthopnea last night. Blood pressure variable but tends to be on the high side. Not requiring any O2. Echo as below. Telemetry reviewed; occ PVC. Review of Systems Constitutional: Constitutional: Denies difficulty sleeping ENT: Denies epistaxis Cardiovascular: Cardiovascular: Denies chest pain Respiratory: Respiratory: Denies cough and Reports dyspnea Gastrointestinal: Gastrointestinal: Denies abdominal pain Musculoskeletal: Musculoskeletal: Reports no additional musculoskeletal complaints Integumentary/Breasts: Skin/Breast: Denies rash Exam Const: General: comfortable and no acute distress HENMT: General nose exam: no epistaxis Ey
[2021-05-16] MEDS: ASPIRIN 81 MG CHEWABLE TABLET PO (09:56)
[2021-05-16] MEDS: PANTOPRAZOLE 40 MG TABLET PO (09:56)
[2021-05-16] MEDS: carvediloL 6.25 MG TABLET BY MOUTH (09:56)
[2021-05-16] MEDS: LOSARTAN POTASSIUM 100 MG TABLET BY MOUTH (09:57)
[2021-05-16] MEDS: TICAGRELOR 90 MG TABLET PO (09:57)
--- NOTE | 2021-05-16 11:29 | PM.DS ---
DS: Admitting Diagnosis Discharge Date 05/16/21 Admitting Diagnosis Chest pain DS: Discharge Diagnosis Discharge Diagnosis (1) Chest pain: Code(s): R07.9 - Chest pain, unspecified Status: Acute Assessment and Plan: # non ST-elevation HI presented with chest pain and shortness of breath she has exertional initial troponin was negative with continued trend upwards. Received a Lovenox shot 80 mg cardiology has been consulted received 325 aspirin cardiac catheterization was done stent was placed patient will be discharged on aspirin and Brilinta if patient is not able to afford Brilinta per Cardiology can be switched to Plavix (2) Elevated troponin: Code(s): R77.8 - Other specified abnormalities of plasma proteins Status: Acute Assessment and Plan: As above CT scan of the chest is negative for PE (3) Chronic kidney disease: Code(s): N18.9 - Chronic kidney disease, unspecified Status: Inactive Assessment and Plan: Probably secondary to diabetes monitor avoid nephrotoxic medication repeat CMP in 1 week (4) Diabetes mellitus: Code(s): E11.9 - Type 2 diabetes mellitus without complications Status: Inactive Assessment and Plan: Resume home medication (5) COPD (chronic obstructive pulmonary disease): Code(s): J44.9 - Chronic obstructive pulmonary disease, unspecified Status: Inactive Assessment and Plan: Stable (6) Hypertension: Code(s): I10 - Essential (primary) hypertension Status: Inactive Assessment and Plan: Continue home medication DS: Summary Hospital Course Hospital Course: Patient was admitted to the hospital with chest pain, elevated troponin, Cardiology was consulted, patient was found to have NSTEMI, cardiac catheterization was done and stent was placed by Cardiology, patient will need dual antiplatelet, follow-up with cardiology and PCP in 1 week, repeat CMP in 1 week as patient has history of chronic renal failure and received contrast during hospitalization to rule out PE and for cardiac catheterization. Time Spent with Patient Time attestation: Total time spent providing and/or coordinating discharge services: Exam Narrative: Alert Chest no wheeze crackles Abdomen nontender nondistended CVS S1 + S2 Lower extremity edema DS: Data Data Completed and Pending Labs on day of discharge: Labs from last 24 hours 05/16/21 05/16/21 05/16/21 09:29 04:49 04:49 WBC 6.9 RBC 4.53 L Hgb 13.2 L Hct 41.4 L MCV 91.4 MCH 29.1 MCHC 31.9 L RDW 13.8 Plt Count 157 MPV 10.3 Immature Gran % (Auto) 0.4 Neut % (Auto) 78.2 H Lymph % (Auto) 10.7 L Pine % (Auto) 7.6 Eos % (Auto) 2.7 Baso % (Auto) 0.4 Lymph # (Auto) 0.74 L Pine # (Auto) 0.5 Eos # (Auto) 0.2 Baso # (Auto) 0.0 Abs Immat Gran (auto) 0.03 Absolute Neuts (auto) 5.4 Absolute Nucleated RBC 0.0 Nucleated RBC % 0.0 Sodium 142 Potassium 3.9 Chloride 110 H Carbon Dioxide 22 Anion Gap 10 BUN 23 H Creatinine 1.40 H Estim Creat Clear Calc 39 Estimated GFR 49 L Glucose 198 H POC Capillary Glucose 183 H Calcium 8.7 05/15/21 05/15/21 05/15/21 19:48 17:47 12:00 WBC RBC Hgb Hct MCV MCH MCHC RDW Plt Count MPV Immature Gran % (Auto) Neut % (Auto) Lymph % (Auto) Pine % (Auto) Eos % (Auto) Baso % (Auto) Lymph # (Auto) Pine # (Auto) Eos # (Auto) Baso # (Auto) Abs Immat Gran (auto) Absolute Neuts (auto) Absolute Nucleated RBC Nucleated RBC % Sodium Potassium Chloride Carbon Dioxide Anion Gap BUN Creatinine Estim Creat Clear Calc Estimated GFR Glucose POC Capillary Glucose 252 H 207 H 167 H Calcium Discharge Plan Discharge Attending physician on discharge: Vickey Steele M.A. Consulting providers:
[2021-05-16] MEDS: FUROSEMIDE 40 MG TABLET PO (11:44)
--- NOTE | 2021-05-16 12:05 | ECHO_ITS ---
Patient Info Name: Lv Henriquez Age: 80 years : 1940 Gender: Male Ht: 69 in Wt: 183 lbs BSA: 2.03 m2 HR: 86 bpm BP: 134 / 74 mmHg Heart Rhythm: Sinus Rhythm Technical Quality: Fair Exam Date: 05/16/2021 8:31 AM Exam Location: [facility] Pulmonary Exam Room: [facility] [place] Patient Status: Inpatient Admit Date: 05/14/2021 Staff Ordering Physician: Bishop Gupta MD Technical Business Analyst: Leanne Tobias RDCS Attending Provider: Biju Archer MD Referring Physician: Alonso HASTINGS; Exam Type: CA echo doppler color flow Study Info Indications - cad mi chest pain s/p stent cath Complete two-dimensional, color flow and Doppler transthoracic echocardiogram is performed. Summary 1. Complete two-dimensional, color flow and Doppler transthoracic echocardiogram is performed. 2. Normal left ventricular size and thickness. Overall good LV systolic function EF 60-65%. However there was hypokinesis of the basal and mid inferior wall as well as the mid septal area. Grade 1 diastolic dysfunction is present. 3. Left atrial chamber dimension is mildly enlarged. 4. Trace mitral and tricuspid regurgitation. 5. Normal sinus rhythm. Left Ventricle Left ventricular chamber dimension is normal. Left ventricular systolic function is normal, estimated at 60-65%. There is no increased left ventricular wall thickness. Left ventricular septal wall motion is normal. The left ventricular diastolic function is grade I diastolic dysfunction. Right Ventricle Right ventricular chamber dimension is normal. Right ventricular systolic function is normal. Left Atria Left atrial chamber dimension is mildly enlarged. Right Atria Right atrial chamber dimension is normal. Aortic Valve The aortic valve is trileaflet. There is mild aortic valve sclerosis. There is no aortic valve stenosis. There is no aortic valve regurgitation. Pulmonic Valve The pulmonic valve is normal. There is no pulmonic valve stenosis. There is no pulmonic regurgitation. Mitral Valve The mitral valve has normal leaflets. There is no mitral valve stenosis. There is trace mitral valve regurgitation. Tricuspid Valve The tricuspid valve leaflets are normal. There is no significant tricuspid valve stenosis. There is trace tricuspid valve regurgitation. No pulmonary hypertension, estimated pulmonary arterial systolic pressure is 31 mmHg. Pericardium/Pleural The pericardium appears normal. There is no pericardial effusion. Inferior Vena Cava Normal inferior vena cava with >50% collapse upon inspiration consistent with Empty right atrial pressure, 10 mmHg. Aorta The aortic root size at the sinus of Valsalva is normal. The prox ascending aorta size is normal. Left Ventricular Outflow Tract Name Value Normal LVOT 2D LVOT Diameter 2.1 cm LVOT Doppler LVOT Peak Gradient 5 mmHg LVOT Mean Gradient 3 mmHg LVOT VTI 21 cm LVOT VTI/AV VTI Ratio 1.0 LVOT Stroke Volume 73 ml
[2021-05-16 13:12] LABS: Glucose Point of Care 234 mg/dl (65-105)
== END 2021-05-16 14:50 | disposition home or self-care (01) ==
LOC: ANHED 20:06 → ANHICU 05-15 12:11 → ANHIMU 05-16 11:28 → ANHICU 05-19 11:51 → ANHIMU 05-19 11:51
PROVIDERS: Emergency Medicine; Internal Medicine Cardiovascular Disease; Admitting Provider Internal Medicine; Emergency Provider General Practice; PCP Family Medicine; Visit Provider Internal Medicine
PROC: 4A023N7 Measurement of Cardiac Sampling and Pressure, Left Heart, Percutaneous Approach (ICD-10-PCS; CPT 93452; principal; 2021-05-15 12:05)
PROC: (CPT 92928; 2021-05-15 12:05)
DX: I21.4 Non-ST elevation (NSTEMI) myocardial infarction (principal); I12.9 Hypertensive chronic kidney disease with stage 1 through stage 4 chronic kidney disease, or unspecified chronic kidney disease; I49.3 Ventricular premature depolarization; R07.9 Chest pain, unspecified; E11.22 Type 2 diabetes mellitus with diabetic chronic kidney disease; E78.5 Hyperlipidemia, unspecified; I25.10 Atherosclerotic heart disease of native coronary artery without angina pectoris; J44.9 Chronic obstructive pulmonary disease, unspecified; N18.9 Chronic kidney disease, unspecified; N18.30 Chronic kidney disease, stage 3 unspecified; R77.8 Other specified abnormalities of plasma proteins; R06.02 Shortness of breath; Z95.5 Presence of coronary angioplasty implant and graft; Z79.84 Long term (current) use of oral hypoglycemic drugs; Z87.891 Personal history of nicotine dependence
CPT/HCPCS: 36415; 71046; 71275; 80048; 80053; 80061; 82948; 83690; 84484; 85025; 85380; 85610; 85730; 92978; 93005; 93306; 93458; 96360; 96361; 96372; 99285; A9270; C1725; C1753; C1760; C1769; C1874; C1887; C1894; C9600; G0269; G0378; J0583; J1644; J1650; J1815; J2250; J3010; J7030; J7040; Q9967

== ENCOUNTER 2021-05-19 14:37 | Outpatient (CLI) | payer MEDICARE, SELFPAY ==
[2021-05-19 15:00] LABS: Basophils Absolute Auto 0.1 K/mm3 (0.0-0.1); Eosinophils Absolute Auto 0.5 K/mm3 (0-0.3); Eosinophils Percent Auto 7.3 % (0-4.4); Hematocrit 39.5 % (42.0-52.0); Hemoglobin 12.3 g/dL (14.0-18.0); Immature Granulocyte Absolute 0.02 K/mm3 (0.00-0.031); Immature Granulocyte Percent A 0.3 % (0-0.5); Lymphocytes Absolute Auto 0.84 K/mm3 (0.9-3.2); Lymphocytes Percent Auto 13.3 % (18.3-44.2); Mean Corpuscular HGB Conc 31.1 g/dl (32-36); Mean Corpuscular Hemoglobin 28.7 pg (26-34); Mean Corpuscular Volume 92.1 fl (80-100); Mean Platelet Volume 10.4 fl (7.4-10.4); Monocytes Absolute Auto 0.5 K/mm3 (0.1-0.6); Monocytes Percent Auto 8.1 % (2.6-8.5); Neutrophils Absolute Auto 4.4 K/mm3 (1.3-6.7); Platelet Count Result 146 k/mm3 (150-375); Red Blood Count 4.29 M/mm3 (4.6-6.20); Red Cell Distribution Width 13.8 % (11.5-14.5); White Blood Count 6.3 K/mm3 (4.5-10.0)
[2021-05-19 15:10] LABS: Alanine Aminotransferase 30 U/L (4-50); Albumin Level 4.1 g/dL (3.5-5.1); Alkaline Phosphatase 92 U/L (38-126); Anion Gap 9 mmol/L (8-16); Aspartate Amino Transferase 33 U/L (17-59); Bilirubin,Total 0.5 mg/dL (0.2-1.3); Blood Urea Nitrogen 36 mg/dL (9-20); Calcium 8.9 mg/dL (8.4-10.2); Carbon Dioxide 22 mmol/L (22-30); Chloride 103 mmol/L (98-107); Estimated Glomerular Filt Rate 37; Glucose 160 mg/dL (65-110); Sodium 134 mmol/L (137-145)
== END 2021-05-19 14:38 | disposition home or self-care (01) ==
PROVIDERS: PCP Family Medicine; Visit Provider Internal Medicine
DX: N18.30 Chronic kidney disease, stage 3 unspecified (principal); I49.3 Ventricular premature depolarization; E11.22 Type 2 diabetes mellitus with diabetic chronic kidney disease
CPT/HCPCS: 36415; 80053; 85025

== ENCOUNTER 2021-09-07 09:45 | Outpatient (RCR) | payer MEDICARE, SELFPAY ==
[2021-06-12 12:23] VITALS: PULSE 83
== END 2021-09-07 13:57 | disposition home or self-care (01) ==
LOC: ANHCPREHAB 09:45
PROVIDERS: PCP Family Medicine
DX: Z95.5 Presence of coronary angioplasty implant and graft (principal)
CPT/HCPCS: 93798

== ENCOUNTER 2023-03-14 06:52 | Emergency (ER) | payer MEDICARE, SELFPAY ==
[2023-03-14] VITALS (49 sets, daily range): BP systolic 140–196; BP diastolic 67–101; PULSE 63–89; RESP 11–26; TEMP 36.6; O2SAT 96–100
--- NOTE | ~2023-03-14 | CT_ITS ---
Non-contrast Head CT History: CVA Technique: Axial non-contrast imaging of the brain was performed. Dose reduction technique was used on this scan by utilizing automated exposure control and iterative reconstruction technique. The dose -length product (DLP) was 605.33 mGy-cm. Findings: There is no evidence of intracranial hemorrhage, mass lesion, or acute infarct. Chronic le ft frontal lobe infarct noted. The ventricles and subarachnoid spaces are normal in size. The rosalba rium appears normal. The visualized paranasal sinuses and mastoid air cells are clear. Impression: No acute abnormality seen. Chronic left frontal lobe infarct. Case discussed with Dr. Cuevas at 7:07 AM on 03/14/2023. Reviewed, dictated and finalized at location . Impression: No acute abnormality seen. Chronic left frontal lobe infarct. Case discussed with Dr. Cuevas at 7:07 AM on 03/14/2023.
--- NOTE | ~2023-03-14 | XR_ITS ---
MODIFIED ESOPHAGRAM HISTORY: Follow-up assessment post new stroke. TECHNIQUE: Modified barium esophagram was performed on 03/14/2023. I administered fluoroscopy and per formed the exam with speech pathologist. Patient was seated for lateral fluoroscopic imaging for ing estion of thin liquids, pudding, solids and quantified amounts, followed by thin liquids in uncontrol led amounts. This was recorded on tape. A single fluoroscopic spot image was also recorded. The DAP f or this procedure was 1.718 Gycm2. The amount of fluoroscopy time used during this procedure was 2.4 minutes. FINDINGS: Oral stage: Adequate function. Pharyngeal stage: Reduced laryngeal elevation and adduction along with reduced tongue base retraction . There is both vallecular and piriform sinus residue. Recurrent laryngeal penetration without aspira tion with uncontrolled thin and nectar thickened liquids. Cervical/esophageal stage: Adequate function. IMPRESSION: Pharyngeal dysphagia with recurrent laryngeal penetration without aspiration. Please cor relate with speech pathologist findings and specific feeding recommendations. Reviewed, dictated and finalized at location A. IMPRESSION: Pharyngeal dysphagia with recurrent laryngeal penetration without a spiration. Please correlate with speech pathologist findings and specific feed ing recommendations.
--- NOTE | ~2023-03-14 | XR_ITS ---
Portable chest x-ray Comparison: 05/14/2021 Clinical History: CVA, weakness Findings: Lungs are clear, without focal consolidation or pleural effusion. Cardiomediastinal silho uette is stable. Bones and soft tissues are unremarkable. Impression: Normal chest. Reviewed, dictated and finalized at location . Impression: Normal chest.
--- NOTE | ~2023-03-14 | MR_ITS ---
MRI of the brain Clinical History: CVA Technique: Axial and sagittal T1-weighted images were acquired. These were followed by axial T2-weigh nick, diffusion weighted, gradient, and FLAIR images.. Following intravenous administration of 17 cc M ultiHance gadolinium, T1-weighted fat-sat imaging was performed in the axial and coronal planes. Findings: There is subtle restricted diffusion involving the right paramedian katherine, with probable min imal hyperintense corresponding FLAIR signal. No other restricted diffusion identified. Chronic left frontal lobe infarct noted. There are mild to moderate chronic microvascular ischemic changes in the periventricular white matter otherwise. No intracranial hemorrhage. Ventricles and subarachnoid spaces are mildly dilated. There is abnormal signal in the right eye glob e. Left orbit unremarkable. There is small retention cyst or polyp in the left maxillary sinus. Remai yanira paranasal sinuses and mastoid air cells are essentially clear. Major intracranial flow voids matias ear intact. Sagittal midline structures are intact. No abnormal postcontrast enhancement identified.. IMPRESSION: Subtle abnormal signal in the right paramedian katherine, as detailed above, compatible with either hypera cute or possibly late subacute stroke. Correlate with timing of the patient's symptomatology. Chronic left frontal lobe infarct and mild to moderate chronic microvascular ischemic changes. No intracranial hemorrhage. Case discussed with Dr. Borjas at the time of this reading. Reviewed, dictated and finalized at [facility]. IMPRESSION: Subtle abnormal signal in the right paramedian katherine, as detailed above, compati ble with either hyperacute or possibly late subacute stroke. Correlate with april ing of the patient's symptomatology. Chronic left frontal lobe infarct and mild to moderate chronic microvascular is chemic changes. No intracranial hemorrhage. Case discussed with Dr. Borjas at the time of this reading.
--- NOTE | 2023-03-14 06:53 | ECG_ITS ---
Measurements Intervals [place] Rate: 74 P: 68 [place]: 163 QRS: 36 QRSD: 110 T: 61 QT: 373 QTc: 415 Interpretive Statements SINUS RHYTHM WITH OCCASIONAL VENTRICULAR PREMATURE COMPLEXES BASELINE ARTIFACT LOW QRS VOLTAGE IN EXTREMITY LEADS [QRS DEFLECTION < 0.5 mV IN LIMB LEADS] MODERATE INTRAVENTRICULAR CONDUCTION DELAY [105+ ms QRS DURATION, 80+ ms Q/S IN V1/V2, NO Q AND 60+ ms R IN I/aVL/V5/V6] BORDERLINE ECG COMPARED TO ECG 05/16/2021 07:55:08 INTRAVENTRICULAR CONDUCTION DELAY NOW PRESENT Electronically Signed On 03-14-2023 16:57:02 CDT by Bishop Gupta M.D.
--- NOTE | 2023-03-14 07:02 | PC.NURSE ---
Pt taken directly to CT upon arrival to ED.
[2023-03-14 07:04] LABS: Basophils Percent Auto 0.7 % (0.2-1.2); Eosinophils Absolute Auto 0.3 K/mm3 (0-0.3); Eosinophils Percent Auto 5.5 % (0-4.4); Hemoglobin 10.6 g/dL (14.0-18.0); Immature Granulocyte Absolute 0.02 K/mm3 (0.00-0.031); Immature Granulocyte Percent A 0.4 % (0-0.5); Lymphocytes Absolute Auto 0.89 K/mm3 (0.9-3.2); Lymphocytes Percent Auto 16.2 % (18.3-44.2); Mean Corpuscular HGB Conc 31.2 g/dl (32-36); Mean Corpuscular Hemoglobin 29.9 pg (26-34); Mean Corpuscular Volume 95.8 fl (80-100); Mean Platelet Volume 10.3 fl (7.4-10.4); Monocytes Absolute Auto 0.5 K/mm3 (0.1-0.6); Monocytes Percent Auto 8.4 % (2.6-8.5); Neutrophils Absolute Auto 3.8 K/mm3 (1.3-6.7); Neutrophils Percent Auto 68.8 % (45.5-73.1); Platelet Count Result 149 k/mm3 (150-375); Red Blood Count 3.55 M/mm3 (4.6-6.20); Red Cell Distribution Width 13.9 % (11.5-14.5); White Blood Count 5.5 K/mm3 (4.5-10.0)
[2023-03-14 07:13] LABS: Alanine Aminotransferase 26 U/L (6-50); Alkaline Phosphatase 105 U/L (38-126); Anion Gap 6 mmol/L (8-16); Aspartate Amino Transferase 29 U/L (17-59); Bilirubin,Total 0.5 mg/dL (0.2-1.3); Blood Urea Nitrogen 56 mg/dL (9-20); Calcium 8.9 mg/dL (8.4-10.2); Carbon Dioxide 28 mmol/L (22-30); Chloride 106 mmol/L (98-107); Estimated Glomerular Filt Rate 16; Glucose 149 mg/dL (65-110); Potassium 4.3 mmol/L (3.4-5.0); Sodium 140 mmol/L (137-145)
[2023-03-14 07:16] LABS: INR 1.1; Prothrombin Time 15.1 Seconds (11.1-14.7)
--- NOTE | 2023-03-14 07:17 | ED.NEUROSD ---
HPI - Neuro Symptoms/Deficit General Chief Complaint: Suspected CVA Stated Complaint: cva? Time Seen by Provider: 03/14/23 06:59 History of Present Illness HPI Narrative: Patient is an 82-year-old male who presents ER with concerns for CVA. Last known well was at 2230 last night. He woke up at 3:30 AM this morning with weakness to the left side of his body as well as slurred speech and facial weakness. Patient has history of Darrell Mcfarlane syndrome back in 2017 but reports all symptoms had improved/resolved. He is unsure if he has had a previous stroke but may have 6 months ago. He is on Brilinta for his heart disease. Patient reports 1 fall this morning without striking head due to weakness on the left side. Related Data Home Medications Medication Instructions Recorded Confirmed dapagliflozin propanediol 5 mg 5 mg PO DAILY 05/14/21 03/14/23 tablet (Farxiga) doxazosin 8 mg tablet 4 mg PO HS 05/14/21 03/14/23 fluticasone furoate 100 1 inh inhalation DAILY 05/14/21 03/14/23 mcg-vilanterol 25 mcg/dose inhalation powder (Breo Ellipta) glipizide 5 mg tablet 15 mg PO QAM 05/14/21 03/14/23 losartan 100 mg tablet 100 mg PO DAILY 05/14/21 03/14/23 pantoprazole 40 mg tablet,delayed 40 mg PO DAILY 05/14/21 06/12/21 release sitagliptin phosphate 50 mg tablet 50 mg PO BID 05/14/21 03/14/23 (Januvia) glipizide 5 mg tablet 10 mg PO HS 05/15/21 03/14/23 diphenhydramine HCl 25 mg tablet 50 mg PO HS PRN Sleep 06/12/21 06/12/21 carvedilol 12.5 mg tablet 12.5 mg PO BID 09/02/21 03/14/23 hydrochlorothiazide 25 mg tablet mg 03/14/23 03/14/23 Allergies Allergy/AdvReac Type Severity Reaction Status Date / Time No Known Allergies Allergy Verified 03/14/23 07:22 Review of Systems Review of Systems: All systems reviewed & are unremarkable except as noted in HPI and below Constitutional: Constitutional: Reports no additional constitutional complaints Cardiovascular: Cardiovascular: Reports no additional cardiovascular complaints Respiratory: Respiratory: Reports no additional respiratory complaints Gastrointestinal: Gastrointestinal: Reports no additional gastrointestinal complaints Neurologic: Reports Abnormal speech present, Denies headache(s), Reports lack of coordination, Reports focal weakness and Denies Sensory deficit (Neuro) [facility] Past Medical History Medical History (Updated 03/14/23 @ 18:42 by Kenneth Borjas MD) CAD (coronary artery disease) Chronic kidney disease COPD (chronic obstructive pulmonary disease) Diabetes mellitus Hypertension Surgical History Surgical History (Updated 03/14/23 @ 08:19 by Kenneth Borjas MD) H/O enucleation of right eyeball Family History Family History (Updated 06/12/21 @ 11:25 by Asia Reyna RN) Mother Diabetes mellitus Acute myocardial infarction Social History Social History Smoking packs per day: 1.5 Smoking cigarettes per day: 30.0 Years smoked: 40 Smoking pack-years: 60.00 Smoking status: Former smoker Tobacco type: cigarettes Exam Narrative: GENERAL: Unwell-appearing, well-nourished, and in no acute distress. HEAD: Normocephalic, atraumatic. EYES: Left eye?extraocular movements intact as well as appropriate constriction. Right eye is false. ENT: Mucous membranes moist. Mild left facial droop/weakness, also difficulty with lifting left eyebrow. CHEST: Clear to auscultation. No respiratory distress. HEART: Regular rate and rhythm. Normal peripheral pulses. ABDOMEN: Soft, nontender, nondistended, normal active bowel sounds. EXTREMITIES: Normal range of motion. No edema. SKIN: Warm, dry, no rash. NEURO: Alert and oriented x3. See NIH stroke scale. Difficulty with finger-nose testing and [id number] testing left upper extremity. Drift in left upper extremity but not left lower extremity. Normal right side. Mild left-sided facial weakness. Mild dysarthria but no express
[2023-03-14 07:25] LABS: Troponin I < 0.012 ng/mL (0.000-0.034)
--- NOTE | 2023-03-14 07:40 | PC.NURSE ---
pt taken for MRI via stretcher at this time. Pt on O2 and patient monitor.
[2023-03-14] MEDS: TICAGRELOR 90 MG TABLET PO (08:51)
--- NOTE | 2023-03-14 10:26 | PCSTNOTE ---
Please refer to the Bedside Swallow Evaluation in the EMR. Please note, silent aspiration cannot be ruled out at bedside.
--- NOTE | 2023-03-14 11:14 | PC.NURSE ---
Patient report received from DOUG Benitez. All questions answered and care of patient assumed.
--- NOTE | 2023-03-14 12:26 | PC.NURSE ---
susannah ritchie [phone]
--- NOTE | 2023-03-14 12:51 | PC.NURSE ---
Patient report given to DOUG Lora. All questions answered and care of patient transferred.
--- NOTE | 2023-03-14 12:58 | PCSTNOTE ---
Please refer to the Modified Barium Swallow Evaluation in the EMR.
--- NOTE | 2023-03-14 13:05 | PCSTNOTE ---
Therapist entered order to continue Speech Therapy should patient remain at this facility. Continue ST at admitting facility if possible, if transferred. Plan of care will be entered prior to seeing patient tomorrow should he be admitted to this facility.
[2023-03-14] MEDS: FLUTICASONE/SALMETEROL 115-21 MCG INHALER 1 PUFF 2 PUFF INHALATION (13:19)
[2023-03-14] MEDS: hydroCHLOROthiazide 25 MG TABLET PO (13:23)
[2023-03-14] MEDS: glipiZIDE 5 MG TABLET 15 MG PO (13:24)
[2023-03-14] MEDS: ASPIRIN 81 MG CHEWABLE TABLET PO (13:25)
[2023-03-14] MEDS: PANTOPRAZOLE 40 MG TABLET PO (13:25)
[2023-03-14] MEDS: carvediloL 12.5 MG TABLET PO (13:25)
[2023-03-14] MEDS: LOSARTAN POTASSIUM 100 MG TABLET PO (13:34)
[2023-03-15 17:28] LABS: Glucose Point of Care 157 mg/dl (65-105)
== END 2023-03-14 18:42 | disposition short-term general hospital (02) ==
PROVIDERS: Emergency Medicine; Emergency Provider Emergency Medicine; PCP Family Medicine
DX: I63.9 Cerebral infarction, unspecified (principal); R13.13 Dysphagia, pharyngeal phase; R29.704 NIHSS score 4; I25.10 Atherosclerotic heart disease of native coronary artery without angina pectoris; E11.22 Type 2 diabetes mellitus with diabetic chronic kidney disease; I12.9 Hypertensive chronic kidney disease with stage 1 through stage 4 chronic kidney disease, or unspecified chronic kidney disease; N18.9 Chronic kidney disease, unspecified; Z87.891 Personal history of nicotine dependence; Z79.84 Long term (current) use of oral hypoglycemic drugs; Z79.02 Long term (current) use of antithrombotics/antiplatelets; I49.3 Ventricular premature depolarization; I45.9 Conduction disorder, unspecified
CPT/HCPCS: 36415; 70450; 70553; 71045; 80053; 82948; 84484; 85025; 85610; 85730; 92610; 92611; 93005; 94664; 99285; A9270; A9577

== ENCOUNTER 2023-05-31 16:26 | Outpatient (CLI) | payer MEDICARE, SELFPAY ==
--- NOTE | ~2023-05-31 | XR_ITS ---
XR chest 2V DATE: 05/31/2023 16:53 INDICATION: Persistent cough since February. TECHNIQUE: PA and lateral views COMPARISON: 03/14/2023 portable AP chest at 0739 hours FINDINGS: Mild bilateral hyperinflation. There is mild discoid atelectasis or scarring at the right l manas base. There is minimal blunting of the costophrenic angles consistent with small pleural effusion s. No pulmonary vascular congestion or pneumothorax is noted. No pulmonary consolidation is detected. Normal heart size. There is aortic calcification and mild unfolding. IMPRESSION: Mild discoid atelectasis or scarring at right lung base Small bilateral pleural effusions Aortic atherosclerosis Reviewed, dictated and finalized at location L. F OPERATOR
== END 2023-05-31 16:27 | disposition home or self-care (01) ==
PROVIDERS: PCP Family Medicine; Visit Provider Nurse Practitioner Adult Health
DX: J90 Pleural effusion, not elsewhere classified (principal); I25.10 Atherosclerotic heart disease of native coronary artery without angina pectoris; R91.8 Other nonspecific abnormal finding of lung field
CPT/HCPCS: 71046

== ENCOUNTER 2023-06-21 13:30 | Outpatient (RCR) | payer MEDICARE, SELFPAY ==
--- NOTE | 2023-06-01 14:39 | PCPTNOTE ---
Addendum entered by Madhavi Diana, PT 06/01/23 14:51: I was called for pt but registration not completed until now, 20 min late for eval appt; Original Note: pt was 8 min late for eval appt;
--- NOTE | 2023-06-01 15:27 | OPREHPOC ---
Outpatient Therapy Plan of Care This is a Multidisciplinary Plan of Care that may contain components documented by all disciplines (PT, OT, and ST.) PT Problem 1 PT Problem #1 Knowledge Deficit PT Goal 1 Goal 1* indep with HEP PT Problem 2 PT Problem #2 Impaired Functional Mobil PT Goal 1 Goal improve balance and mobility skills, to decrease risk for falls and increase activity level, decrease care and assist required by his daughter: 1* TUG with cane 16 seconds 2* 2 minute walking testing distance with wheeled walker 375' 3* Tinetti balance score of 24/28, to improve gait /balance 4* pt report NO falls
--- NOTE | 2023-06-01 15:27 | PTOPEVAL1 ---
Assessment and note entered by Madhavi Diana, PT Evaluation Information Assessment Status Evaluation Diagnosis vertigo Onset Mar 14, 2023 Subjective Information has chronic vertigo, increase of vertigo after stroke in February; decreased vertigo- sit still increase vertigo--when get up and move, off balance, and almost fall; ACTIVITY: is able to drive OK and without dizziness; Dr told him treatment he recommends: cut cochlear nerve and put in cochlear implant; was told cochlear nerve is and not working; have had 4 falls since Feb 2023; ACTIVITY: use cane, no device, wheeled walker; unstable in AM; from previous therapy, doing standing arm and leg exercises; GOAL: be more stable with walking, less dizzy; Dizziness Handicap Index score of 68/100; Reported Pain Level Pain Score 0: Self Report Assessment PT Clinical Summary Lv has the diagnosis of vertigo. His medical history is complex, with chronic vertigo reported since 2016; blind in R eye, hard of hearing, Koo Hurt Syndrome, cardiac stents, COPD, diabetes. He was told that his L cochlear nerve is and he needs implant. He has had 4 falls in the past 6 months, with loss of balance. At home, he is using no device, cane or wheeled walker. Dizziness Handicap Index score of 68/100 self assessment. His goal is to get his balance better, to be able to walk better and drive better. With the evaluation: testing with wheeled walker: TUG 15 seconds, 2 minute walk test 300', Tinetti balance score of 20/28; He demonstrated good safety awareness with transfer sit/stand and gait pattern.
--- NOTE | 2023-06-21 14:18 | PTOPDC ---
Assessment and note entered by Madhavi Diana, PT Evaluation Information Assessment Status Discharge Diagnosis vertigo Onset Mar 14, 2023 Subjective Information dizzy and off balance; taking a new water pill and losing weight over the past 8-10 days; arms and legs are more sore; go to heart dr and get a loop recorder put in this Tuesday; have been using the walker most of the time, more steady with it and not using the cane very much; sometimes around the house, just hold onto furniture; have not had any falls since coming for therapy; have not gone to the [facility] lately-- too embarassed to go there; Reported Pain Level Pain Score 0: Self Report Additional Pain Score Comments muscles were sore few days ago, but no longer sore Assessment PT Clinical Summary Lv has received 6 PT sessions. Compared to the initial evaluation: He continues to report dizziness, which is chronic for him since 2016; TUG time with wheeled walker is the same at 15 seconds and with the small based quad cane is 16 seconds; 2 minute walking test distance was 300' and today 275' with the wheeled walker; Tinetti balance score improved from 20/24 to 24/28; he has been educated on HEP, safety with mobility and assistive device use. He is impulsive with movements and unsafe with stand/sit transfer. The goals were partially met. Discharge PT services. He is to continue with his HEP and walking as tolerated. Plan of Care PT Services Indicated No
== END 2023-06-21 14:44 | disposition home or self-care (01) ==
LOC: ANHPT 13:30
PROVIDERS: PCP Family Medicine; Visit Provider Physician Assistant
DX: R42 Dizziness and giddiness (principal)
CPT/HCPCS: 97110; 97112; 97161; 97530

== ENCOUNTER 2023-06-24 00:16 | Day surgery (SDC) | payer MEDICARE, SELFPAY ==
[2023-06-23 12:23] VITALS: BMI 27.1
[2023-06-24 09:13] VITALS: BP 144/80; PULSE 70; RESP 16; TEMP 36.9; O2SAT 96
--- NOTE | 2023-06-24 10:07 | SUR.PREOP ---
BEATRIS FROM [facility] HERE FOR LOOP RECORDER IMPLANT. TO BEDSIDE FOR EVALUATION AND EDUCATION.
--- NOTE | 2023-06-24 10:15 | PM.IMHP ---
H&P: HPI History of Present Illness Date/Time: 06/24/23 10:15 Chief Complaint: Recent CVA Narrative: this is an 82-year-old man with a history of coronary artery disease with previous percutaneous revascularization of the LAD and ramus intermedius in the remote past. He then underwent stenting of his circumflex in April of 2021. He has been doing well recently with regard to his ischemic heart disease. He was recently seen in the office for follow-up in related that he had had a CVA and was hospitalized in [place] at another hospital. Esophageal ECHO and a thoracic transthoracic echo were essentially unremarkable. Implantation of a loop recorder was recommended to rule out intermittent atrial fibrillation. Review of Systems Constitutional: Constitutional: Reports no additional constitutional complaints Eyes: Eyes: Reports no additional eye complaints ENT: Reports system reviewed and no additional complaints, except as documented Cardiovascular: Cardiovascular: Reports no additional cardiovascular complaints Respiratory: Respiratory: Reports no additional respiratory complaints Gastrointestinal: Gastrointestinal: Reports no additional gastrointestinal complaints Musculoskeletal: Musculoskeletal: Reports no additional musculoskeletal complaints Integumentary/Breasts: Skin/Breast: Reports system reviewed and no additional complaints, except as docu Neurologic: Comments: 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 [facility] Past Medical History Medical History (Updated 03/25/23 @ 12:50 by Evelio Bazzi DO) CAD (coronary artery disease) Chronic kidney disease COPD (chronic obstructive pulmonary disease) Diabetes mellitus Hypertension Surgical History Surgical History H/O enucleation of right eyeball Family History Family History Mother Diabetes mellitus Acute myocardial infarction Social History Social History Smoking packs per day: 1.5 Smoking cigarettes per day: 30.0 Years smoked: 40 Smoking pack-years: 60.00 Smoking status: Former smoker Tobacco type: cigarettes Smoking end date: 05/30/99 Alcohol intake: never Substance use: never Living arrangements: with family Spiritual care concerns: No Meds Home Medications and Allergies Home Medications Medication Instructions Recorded Confirmed Type doxazosin 8 mg tablet 4 mg PO HS 05/14/21 06/23/23 History fluticasone furoate 100 1 inh inhalation PRN PRN SOB 05/14/21 06/23/23 History mcg-vilanterol 25 mcg/dose inhalation powder (Breo Ellipta) glipizide 5 mg tablet 15 mg PO QAM 05/14/21 06/23/23 History losartan 100 mg tablet 100 mg PO DAILY 05/14/21 06/23/23 History glipizide 5 mg tablet 10 mg PO HS 05/15/21 06/24/23 History nitroglycerin 0.4 mg sublingual 0.4 mg sublingual Q5MIN PRN Chest 05/16/21 06/23/23 Rx tablet (Nitrostat) Pain #25 tabs aspirin 81 mg chewable tablet 81 mg PO DAILY@0800 #30 tabs 04/07/23 06/23/23 Rx (Children's Aspirin) carvedilol 12.5 mg tablet (Coreg) 25 mg PO Q12HR #90 tabs 04/07/23 06/23/23 Rx dapagliflozin propanediol 5 mg 5 mg PO DAILY #30 tabs 04/07/23 06/23/23 Rx tablet (Farxiga) pantoprazole 40 mg tablet,delayed 40 mg PO DAILY #30 tabs 04/07/23 06/23/23 Rx release polyethylene glycol 3350 17 gram 17 g PO QAM PRN Constipation #30 ea 04/07/23 06/23/23 Rx oral powder packet (Miralax) sitagliptin phosphate 50 mg tablet 50 mg PO BID #30 tabs 04/07/23 06/23/23 Rx (Januvia) ferrous sulfate 324 mg (65 mg 324 mg PO DAILY 06/23/23 06/23/23 History iron) tablet,delayed release Allergies Allergy/AdvReac Type Severity Reaction Status Date / Time No Known Allergies Allergy Verified 06/24/23 08:56 Vital Signs Vital Signs - 24 hr 06/24/23 09:13 Temperature
--- NOTE | 2023-06-24 10:20 | WPDMODSED ---
Moderate Sedation Note-Pt Data Patient Data Diagnosis: ischemic stroke Present Complaint: mild residual left hemiplegia Procedure to be performed/Plan: implantation of loop recorder Allergies Allergy/AdvReac Type Severity Reaction Status Date / Time No Known Allergies Allergy Verified 06/24/23 08:56 Home Medications Medication Instructions Recorded Confirmed Type doxazosin 8 mg tablet 4 mg PO HS 05/14/21 06/23/23 History fluticasone furoate 100 1 inh inhalation PRN PRN SOB 05/14/21 06/23/23 History mcg-vilanterol 25 mcg/dose inhalation powder (Breo Ellipta) glipizide 5 mg tablet 15 mg PO QAM 05/14/21 06/23/23 History losartan 100 mg tablet 100 mg PO DAILY 05/14/21 06/23/23 History glipizide 5 mg tablet 10 mg PO HS 05/15/21 06/24/23 History nitroglycerin 0.4 mg sublingual 0.4 mg sublingual Q5MIN PRN Chest 05/16/21 06/23/23 Rx tablet (Nitrostat) Pain #25 tabs aspirin 81 mg chewable tablet 81 mg PO DAILY@0800 #30 tabs 04/07/23 06/23/23 Rx (Children's Aspirin) carvedilol 12.5 mg tablet (Coreg) 25 mg PO Q12HR #90 tabs 04/07/23 06/23/23 Rx dapagliflozin propanediol 5 mg 5 mg PO DAILY #30 tabs 04/07/23 06/23/23 Rx tablet (Farxiga) pantoprazole 40 mg tablet,delayed 40 mg PO DAILY #30 tabs 04/07/23 06/23/23 Rx release polyethylene glycol 3350 17 gram 17 g PO QAM PRN Constipation #30 ea 04/07/23 06/23/23 Rx oral powder packet (Miralax) sitagliptin phosphate 50 mg tablet 50 mg PO BID #30 tabs 04/07/23 06/23/23 Rx (Januvia) ferrous sulfate 324 mg (65 mg 324 mg PO DAILY 06/23/23 06/23/23 History iron) tablet,delayed release Sedation/Anesthesia: No previous sedation/anesthesia problems (including family history). [facility] Past Medical History Medical History (Updated 03/25/23 @ 12:50 by Evelio Bazzi DO) CAD (coronary artery disease) Chronic kidney disease COPD (chronic obstructive pulmonary disease) Diabetes mellitus Hypertension Surgical History Surgical History H/O enucleation of right eyeball Family History Family History Mother Diabetes mellitus Acute myocardial infarction Social History Social History Smoking packs per day: 1.5 Smoking cigarettes per day: 30.0 Years smoked: 40 Smoking pack-years: 60.00 Smoking status: Former smoker Tobacco type: cigarettes Smoking end date: 05/30/99 Alcohol intake: never Substance use: never Living arrangements: with family Spiritual care concerns: No Mod Sed Physical Exam Physical Exam Pre Procedural Exam: Normal: Appearance, Neck, Throat, Airway, Lungs, Heart Size, Heart Rate, Heart Rhythm and Neuro Exam Hours since solid foods: 12 Hours since liquid intake: 12 Mallampati Classification: class II Internal Medicine - PN: Obj Da Vital Signs Vital Signs: Vital Signs - 24 hr 06/24/23 09:13 Temperature 36.9 C Pulse Rate 70 Respiratory Rate 16 Blood Pressure 144/80 H Pulse Oximetry 96 Oxygen Delivery Room Air ASA Classification/Sedation ASA Classification/Sedation ASA Class: II Emergent: No Risks: Risks, benefits and alternatives explained and patient/family accepted plan for sedation. Patient re-evaluated immediately prior to sedation.
[2023-06-24 10:30] VITALS: BP 144/74; PULSE 74; RESP 16; O2SAT 96
[2023-06-24 10:45] VITALS: BP 153/81; PULSE 72; RESP 14; O2SAT 96
[2023-06-24 11:00] VITALS: BP 162/75; PULSE 73; RESP 14
--- NOTE | 2023-06-24 11:00 | WPDCARDPROC ---
Cardiac Cath Procedure Note Date of procedure:: 06/24/23 Performing physician:: Caleb Giordano MD Indication:: Cryptogenic stroke Brief clinical history:: this is an 82-year-old man with no prior history of atrial fibrillation recently experienced an ischemic stroke loop recorder implant was recommended by his neurology consultation to rule out occult atrial fib. There is no personal history of atrial fibrillation in this gentleman he does have coronary disease with remote history of PCI. Procedure Procedure performed:: Implantation of loop recorder Sedation/Medication given:: no sedation Access site:: left anterior chest wall Estimated blood loss:: minimal Procedure note:: patient was brought to the cardiac catheterization lab holding area in the postabsorptive state he was placed in the supine position and a donnell was made in the midclavicular line in the 4th intercostal space. He was then prepped and draped in a sterile fashion. At the site of this marked puncture site he was given 20 cc of lidocaine infiltrated locally. Following this the Biotronik Biomonitor kit was opened and the puncture blade was used to create a stab wound at the donnell we created. Following this the insertion tool was inserted into the stab wound and in an inferior direction firm pressure created a tract for the device inferior to the puncture. The device was then deployed and left in position. Mild pressure was held at the puncture site because of skin bruising. When this resolved with a small drop bio glue was placed followed by a Band-Aid. The patient tolerated the procedure well there were no apparent complications. Findings:: As above Conclusion:: successful implantation of Biotronik bio monitor loop recorder to rule out occult air to atrial fibrillation in this 82-year-old man who has had an ischemic stroke Caleb Giordano MD [facility]
[2023-06-24 11:15] VITALS: BP 149/80; PULSE 72; RESP 16
== END 2023-06-24 12:00 | disposition home or self-care (01) ==
PROVIDERS: PCP Family Medicine; Visit Provider Specialist
PROC: (CPT 33285; principal; 2023-06-24 10:00)
DX: I63.9 Cerebral infarction, unspecified (principal); I25.10 Atherosclerotic heart disease of native coronary artery without angina pectoris; I12.9 Hypertensive chronic kidney disease with stage 1 through stage 4 chronic kidney disease, or unspecified chronic kidney disease; E11.22 Type 2 diabetes mellitus with diabetic chronic kidney disease; N18.9 Chronic kidney disease, unspecified; J44.9 Chronic obstructive pulmonary disease, unspecified; Z87.891 Personal history of nicotine dependence; Z79.84 Long term (current) use of oral hypoglycemic drugs; Z79.82 Long term (current) use of aspirin
CPT/HCPCS: 33285; C1764

== ENCOUNTER 2023-09-30 10:58 | Outpatient (CLI) | payer MEDICARE, SELFPAY ==
--- NOTE | ~2023-09-30 | XR_ITS ---
Clinical Indication: Cough PA and lateral views of the chest: Comparison: 05/31/2023 Findings: The lungs are clear, without evidence of focal consolidation or pleural effusion. Cardiome diastinal silhouette is stable, now with loop recorder. Bones and soft tissues are unremarkable. Impression: Clear lungs. Reviewed, dictated and finalized at location . Impression: Clear lungs.
== END 2023-09-30 10:59 | disposition home or self-care (01) ==
PROVIDERS: PCP Family Medicine; Visit Provider Family Medicine
DX: R05.9 Cough, unspecified (principal); R06.02 Shortness of breath
CPT/HCPCS: 71046

== ENCOUNTER 2024-04-18 12:53 | Outpatient (CLI) | payer MEDICARE, SELFPAY | END 2024-04-18 12:54 | disposition home or self-care (01) | LOC: ANHAUDIO 12:55 | PROVIDERS: PCP Family Medicine; Visit Provider Family Medicine | DX: R42 Dizziness and giddiness (principal); H90.42 Sensorineural hearing loss, unilateral, left ear, with unrestricted hearing on the contralateral side; H90.11 Conductive hearing loss, unilateral, right ear, with unrestricted hearing on the contralateral side; H90.71 Mixed conductive and sensorineural hearing loss, unilateral, right ear, with unrestricted hearing on the contralateral side | CPT/HCPCS: 92557; 92567 ==

== ENCOUNTER 2025-02-18 10:24 | Observation (INO) | payer MEDICARE, SELFPAY ==
[2025-02-18] VITALS (9 sets, daily range): BP systolic 135–195; BP diastolic 55–98; PULSE 68–80; RESP 13–20; TEMP 36.4–36.7; O2SAT 95–100; BMI 11.6; BMI 23.8
--- NOTE | ~2025-02-18 | CT_ITS ---
EXAMINATION: CT brain ana fernando, 02/18/2025 12:08 CDT HISTORY: dizzines COMPARISON: No comparisons available. Technique: Axial images obtained of the brain without contrast. One or more of the following dose reduction techniques were used: automated exposure control, adjustment of the mA and/or kV according to patient size, use of iterative reconstruction technique. Findings: There is a large remote left frontal subcortical infarct, no acute infarct or hemorrhage is identified. No midline shift or mass effect. No extra-axial fluid collections Mastoid air cells unremarkable. Sinuses and orbits unremarkable. No acute fracture. No significant facial or scalp soft tissue swelling evident. No radiopaque foreign body is seen. Impression: 1.No acute intracranial abnormality. Reviewed, dictated and finalized at location A. Impression: 1.No acute intracranial abnormality.
--- NOTE | ~2025-02-18 | US_ITS ---
Clinical History: dizziness Examination: US carotid duplex BI Comparison: Carotid duplex 04/15/2018 Technique: Grayscale, color, duplex/spectral Doppler sonography carotid and vertebral arteries. Distal CCA and Peak ICA systolic velocities provided. Society of Radiologists in Ultrasound (SRU) consensus criteria utilized, indirectly assessing stenosis by velocities. Findings: Mild scattered plaque Right side: CCA - 72 cm/sec. ICA - 137 cm/sec. ICA/CCA - 1.9 Left Side: CCA - 59 cm/sec. ICA - 83 cm/sec. ICA/CCA - 1.4 Normal antegrade flow measured bilateral vertebral arteries. IMPRESSION: 1. 50-69% stenosis right ICA. 2. No hemodynamically significant left ICA stenosis (i.e., if any stenosis, less than 50%). 3. Normal bilateral antegrade vertebral artery flow. Stenosis measured by Society of Radiologists in Ultrasound (SRU) criteria. Reviewed, dictated and finalized at location R. IMPRESSION: 1. 50-69% stenosis right ICA. 2. No hemodynamically significant left ICA stenosis (i.e., if any stenosis, le ss than 50%). 3. Normal bilateral antegrade vertebral artery flow. Stenosis measured by Society of Radiologists in Ultrasound (SRU) criteria.
--- NOTE | ~2025-02-18 | MR_ITS ---
EXAMINATION: MR brain/brain stem wo con DATE: 02/19/2025 10:31 INDICATION: Slurred speech. Facial droop. TECHNIQUE: Magnetic resonance imaging (MRI) of the brain and brainstem was performed without intravenous contrast. Sequences included sagittal and axial T1-weighted SE, axial diffusion-weighted FS SE, axial 3D SWAN, axial T2-weighted FLAIR, and axial T2-weighted FSE. Apparent diffusion coefficient (ADC) maps were created. COMPARISON: Head CT dated 02/18/2025 and brain MR dated 10/15/2018 FINDINGS: Again seen is a small region of encephalomalacia consistent with chronic infarct in the left frontal lobe. There are a few additional small old infarcts at the bilateral cerebral hemispheres. There are no areas of restricted diffusion to suggest acute infarction. No intracranial hemorrhage or abnormal intracranial mass lesion. Interval increase in additional small amount of scattered nonspecific increased T2-weighted signal intensity in the cerebral white matter, predominantly involving the deep and periventricular white matter. There are no intraparenchymal signal abnormalities seen on the other pulse sequences. The ventricles are symmetric and normal in size. There are no abnormal extra-axial fluid collections. Flow voids are seen in the cerebral arteries on the T2- weighted sequences consistent with their expected patency. Changes of left intraocular lens replacement. Prosthetic right globe. Mucous retention cyst in the left maxillary sinus. IMPRESSION: 1. Unchanged old infarct in the left frontal lobe and a few small old infarcts in the bilateral cerebellar hemispheres. No acute intracranial process. 2. Small amount scattered nonspecific white matter T2 hyperintensity consistent with chronic small vessel ischemic disease. Reviewed, dictated and finalized at location A.
--- NOTE | ~2025-02-18 | US_ITS ---
Clinical history:MARION EXAM:Ultrasound renal bilateral TECHNIQUE:Multiple static grayscale images and color Doppler images were obtained of the kidneys Comparisons:None available FINDINGS: Right kidney measures 9.0 x 4.3 x 3.6 cm. Mild right-sided hydronephrosis. There is a 3.2 x 2.0 x 4.4 cm cyst in the inferior pole the right kidney. Left kidney measures 8.9 x 4.8 x 3.8 cm. No left-sided hydronephrosis. Bilateral ureteral jets are identified. There is a 10.7 x 7.9 x 9.8 cm indeterminant cystic mass about the right kidney/liver. A CT of the abdomen and pelvis with contrast is recommended for further assessment. IMPRESSION: 1. Mild right-sided hydronephrosis. 2.There is a 10.7 x 7.9 x 9.8 cm indeterminant cystic mass about the right kidney/liver. A CT of the abdomen and pelvis with contrast is recommended for further assessment. 3. There is a 3 cm cyst in the inferior pole the right kidney. Reviewed, dictated and finalized at location Q. IMPRESSION: 1. Mild right-sided hydronephrosis. 2.There is a 10.7 x 7.9 x 9.8 cm indeterminant cystic mass about the right kidn ey/liver. A CT of the abdomen and pelvis with contrast is recommended for [facility] assessment. 3. There is a 3 cm cyst in the inferior pole the right kidney.
--- NOTE | ~2025-02-18 | XR_ITS ---
EXAMINATION: XR chest 1V portable 02/18/2025 12:14 INDICATION: Dizziness TECHNIQUE:A single frontal image of the chest was obtained. COMPARISON: 09/30/2023 FINDINGS: Heart is not enlarged. No pneumothorax. No pleural effusion. No free air under the diaphragm. Small interstitial and airspace opacities in the mid and lower lungs. There is a 1.5 cm nodular density projecting of the left lower hemithorax. Differential includes artifact from overlapping osseous structures versus pulmonary nodule. A chest CT is recommended. IMPRESSION: 1. Small interstitial and airspace opacities in the mid and lower lungs. Differential includes but is not limited to edema or pneumonia. Recommend follow-up to resolution. 2.There is a 1.5 cm nodular density projecting of the left lower hemithorax. Differential includes artifact from overlapping osseous structures versus pulmonary nodule. A chest CT is recommended. Reviewed, dictated and finalized at location Q. IMPRESSION: 1. Small interstitial and airspace opacities in the mid and lower lungs. Differ ential includes but is not limited to edema or pneumonia. Recommend follow-up t o resolution. 2.There is a 1.5 cm nodular density projecting of the left lower hemithorax. Di fferential includes artifact from overlapping osseous structures versus pulmona ry nodule. A chest CT is recommended.
--- OUTSIDE RECORDS SUMMARY | 2025-02-18 11:32 | XMS_ITS | Clinical Summary ---
Author Organization [facility] Address [address] [id number] Care Team Providers Care Sewer And Drain Technician Name Role Phone Kamron Salguero Primary Care Provider Allergies No known active allergies Medications doxazosin (CARDURA) 8 mg Oral tablet take 1 tablet (8MG) by oral route every day 2 Active glipiZIDE (GLUCOTROL) 5 mg Oral tablet take 2 tablet (5MG) by oral route 2 times every day before meals 2 Active SITagliptin (JANUVIA) 50 mg Tablet Take 50 mg by mouth daily with breakfast 50 mg in and am and 50 mg in evening. Active pantoprazole (PROTONIX) 40 mg Tablet, Delayed Release (E.C.) Take 40 mg by mouth daily. Tuesday, Tue, Tuesday Active fluticasone furoate-vilante roL (BREO ELLIPTA) 100-25 mcg/dose Disk with Device Take 1 Puff by inhalation daily. Active albuterol HFA 90 mcg inhaler Take 2 Puffs by inhalation 1 time daily as needed. Active dapagliflozin (FARXIGA) 5 mg Tablet Take 5 mg by mouth daily. Active nitroglycerin (NITROSTAT) 0.4 mg Tablet, Sublingual Place 0.4 mg under tongue every 5 minutes as needed for Chest Pain. Active atorvastatin (LIPITOR) 80 mg tablet 2 Active carvediloL (COREG) 12.5 mg tablet Take 1 Tablet (12.5 mg) by mouth 2 times daily with meals. 180 Tablet 3 3 Active hydroCHLOROthia zide 25 mg tablet Take 1 Tablet (25 mg) by mouth daily. 90 Tablet 3 3 Active losartan (COZAAR) 100 mg tablet Take 1 Tablet (100 mg) by mouth daily. NEED APPOINTMENT. 90 Tablet 4 Active aspirin (ECOTRIN EC) 81 mg Tablet, Delayed Release (E.C.) take 1 tablet by mouth every day 60 Tablet 4 Active Active Problems Patient Care Coordination No te Formatting of this note migh t be different from the original. Surveillance Sensor Operator - Dr. Jc Yee Problem Noted Date Diagnosed Date PVC's (premature ventricular contractions) 04/07 Mixed hyperlipidemia 03/22/2018 Benign hypertension with CKD (chronic kidney disease), stage II 09/19/2017 History of coronary artery s tent placement. PCI to the LAD and RAMUS 07/11, LCx 05/1909/01/2015 HTN (hypertension) 02/26/2013 CAD (coronary artery disease ), PCI of LAD and Ramus with KRISTIN 07/11. KRISTIN to LCx 05/1902/26/2013 DM (diabetes mellitus) 08/22/2012 Resolved Problems Problem Noted Date Diagnosed Date Resolved Date Elevated lipids 08/22/2012 03/28/2019 CAD (coronary artery disease) 08/22/2012 02/26/2013 Overview (08/22/2012): PCI of LAD adn RAmus with KRISTIN 07/11 Social History Tobacco Use Types Packs/Day Years Used Date Smoking Tobacco: Former Cigarettes Q uit: 08/23/1999 Smokeless Tobacco: Never Tobacco Cessation:Counseling Given: Not Answered Alcohol Use Standard Drinks/Week Comments No 0 (1 standard drink = 0.6 oz pur e alcohol) Sex and Gender Information Value Date Recorded Sex Assigned at Not on file Legal Sex Male 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 Gender Identity Not on file Sexual Orientation Not on file Occupation Industry Job Start Date Job End Date Not on file Not on file Not on file Not on file Last Filed Vital Signs Vital Sign Reading Time Taken Comments Blood Pressure 140/72 12/01/2022 1:11 PM CDT Pulse 64 12/01/2022 1:11 PM CDT Temperature 36.4 C (97.5 F) 04/07/2020 1:25 PM GEAR MACHINE OPERATOR GENERAL Respiratory Rate 18 10/06/2020 12:5 3 PM CDT Oxygen Saturation 98% 12/01/2022 1:11 PM CDT Inhaled Oxygen Concentration - - Weight 82.5 kg (181 lb 12.8 oz) 12/01/2022 1:11 PM CDT Height 175.3 cm (5' 9) 12/01/2022 1:11 PM CDT Body Mass Index 26.85 12/01/2022 1:11 PM CDT Plan of Treatment Health Maintenance Due Date Last Done Comments DIABETES ANNUAL FOOT EXAM 1960 DIABETES ANNUAL RETINAL EXAM 1960 DIABETES MICROALBUMIN ANNUAL SCREEN 1960 PNEUMOCOCCAL VACCINE 50+ YEA RS (2 of 2 - PCV) 03/10/2010 03/10/2009 ZOSTER VACCINE (2 of 3) 05/12/2011 03/17/2011 RSV VACCINE (60+ or ) (1 - 1-dose 75+ series) 2017 DIABETES HBA1C Q 6 MONTHS 09/14/20232022, 02/02/2022, 07/28/2021, Additional history exists LDL CHOLESTEROL ANNUAL 02/08/2024 3, 06/03/2022, 07/28/2021, Additional history exists INFLUENZA VACCINE (#1) 2024 0, 04/06/2019, 03/02/2018 DTAP/TDAP/TD VACCINES (2 - T d or Tdap) 03/22/2026 03/22/2016, 01/27/2004 Procedures Procedure Name Priority Date/Time Associated Diagnosis Comments LIPID PANEL Routine 02/07/2023 HEMOGLOBIN A1C Routine 07/25/2018 from Last 3 Months or Most Recently Relevant to Health Maintenance Results * LIPID PANEL (02/07/2023) ABSTRACTED CHOLESTEROL EXTERNAL LAB ABSTRACTED TRIGLYCERIDE EXTERNAL LAB ABSTRACTED HDL EXTERNAL LAB ABSTRACTED LDL CALCULATED EXTERNAL LAB Blood 02/07/2023 us Kamron Salguero DO CHEMISTRY ORDERABLES F inal Result EXTERNAL LAB * HEMOGLOBIN A1C (07/25/2018) Blood Kamron Salguero DO CHEMISTRY ORDERABLES F inal Result [facility] CLIA# [id number] [address] [address] from Last 3 Months or Most Recently Relevant to Health Maintenance Insurance [employer] PPO MCR Advance Directives For more information, please contact: [phone] * Full Code (Latest Code Status on File) Date Activated Date Inactivated Comments 03/19/2016 10:23 AM 03/19/2016 7:53 PM Care Teams Sewer And Drain Technician Relationship Specialty Start Date End Date Kamron Salguero DO PCP - General Family Practice 02/26/15
--- OUTSIDE RECORDS SUMMARY | 2025-02-18 11:33 | XMS_ITS | Clinical Summary ---
Author Organization [facility] Address [address] [place] [address] Care Team Providers Care Occupational Therapist Aide Name Role Phone Kamron Salguero DO Primary Care Provider Coni Humphreys MD Unavailable [phone] Allergies Active Allergy Reactions Criticality Noted Date Comments Sildenafil Unknown 09/02/2012 Medications losartan 100 MG tablet Take 1 tablet by mouth daily. Active diphenhydrAMINE 25 MG capsule Take 25 mg by mouth every 6 (six) hours as needed for Sleep. Active BRILINTA 90 MG tablet Take 90 mg by mouth 2 (two) times daily. 1 Active aspirin EC (ECOTRIN) 81 MG tablet Take 81 mg by mouth daily. Active carvedilol 12.5 MG tablet Take 25 mg by mouth 2 (two) times daily. 2 Active atorvastatin (LIPITOR) 80 MG tabletIndicatio ns:Dyslipidemia TAKE 1 TABLET(80 MG) BY MOUTH DAILY 100 tablet 2 Active pantoprazole EC (PROTONIX) 40 MG tabletIndicatio ns:Dysphagia, unspecified type TAKE 1 TABLET BY MOUTH EVERY MORNING 90 tablet 1 3 Active BREO ELLIPTA 100-25 MCG/ACT inhalerIndicati ons:Pulmonary emphysema, unspecified emphysema type (CMS/HCC HHS/HCC) INHALE 1 PUFF INTO THE LUNGS DAILY 180 each 3 Active glipiZIDE (GLUCOTROL) 5 MG tabletIndicatio ns:Type 2 diabetes mellitus with diabetic neuropathy, without long-term current use of insulin ([facility]) TAKE 3 TABLETS BY MOUTH EVERY MORNING THEN TAKE 2 TABLETS BY MOUTH EVERY EVENING 450 tablet 3 Active doxazosin (CARDURA) 8 MG tabletIndicatio ns:Enlarged prostate without lower urinary tract symptoms (luts) TAKE 1 TABLET BY MOUTH EVERY DAY 90 tablet 3 Active FARXIGA 5 MG TabIndications: Type 2 diabetes mellitus with diabetic neuropathy, without long-term current use of insulin ([facility]) TAKE 1 TABLET BY MOUTH DAILY 90 tablet 3 Active JANUVIA 50 MG tabletIndicatio ns:Type 2 diabetes mellitus with stage 3 chronic kidney disease, without long-term current use of insulin ([facility]) TAKE 1 TABLET BY MOUTH TWICE DAILY 180 tablet 3 Active polyethylene glycol (GLYCOLAX) packet TAKE 17G BY MOUTH EVERY MORNING NEEDED FOR CONSTIPATION 3 Active B Complex Vitamins Cap Take 1 capsule by mouth daily. Active nitroglycerin (NITROSTAT) 0.4 MG SL tabletIndicatio ns:Arterioscler osis of coronary artery Place 1 tablet (0.4 mg total) under the tongue every 5 (five) minutes as needed for Chest Pain. 25 tablet 1 3 Active Glucose Blood (ONETOUCH ULTRA) test stripIndication s:Type 2 diabetes mellitus with stage 3b chronic kidney disease, without long-term current use of insulin ([facility]) USE 1 STRIP TO TEST DAILY 300 strip 1 3 Active Active Problems Problem Noted Date Diagnosed Date History of stroke with residual deficit 04/18/20 23 Diastolic dysfunction 02/02/2022 Overview (02/02/2022): Noted on Echo Apr 2021 Type 2 diabetes mellitus wit h diabetic peripheral angiopathy without gangrene, without long-term current use of insulin ([facility]) 07/25/2020 PVC's (premature ventricular contractions) 04/07 Type 2 diabetes mellitus wit h diabetic neuropathy, without long-term current use of insulin ([facility]) 01/25/2020 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 Emphysema changes. Chronic obstructive pulmonary disease ([facility] H HS/[facility]) 09/02/2012 Diabetes mellitus with chron ic kidney disease ([facility]) 09/02/2012 Overview (10/05/2018): Description: STAGE 3; CKD due to DM Prior to 2003; Prior to 2003 Diverticulosis 09/02/2012 Enlarged prostate without lo wer urinary tract symptoms (luts) 09/02/2012 Lupus vulgaris 09/02/2012 Overview (10/05/2018): Description: SEROLOGIC POSITIVE, NO SX Neoplasm of respiratory system 09/02/2012 Overview (10/05/2018): Description: 09/07 Stage III chronic kidney disease 09/02/2012 Resolved Problems Problem Noted Date Diagnosed Date Resolved Date Prostate cancer screening 01/23/2021 Encounter for preventive health examination 09/02/2012 02/08/2020 Immunizations Immunization Administration Dates Next Due Fluad influenza vaccine, Joey drivalent (aIIV4), Inactivated, adjuvanted, preservative free, 0.5 mL,IM use 04/06/2019 Flublok (Quadrivalent) 03/11/2020 Fluzone High Dose - >Age 65 (Prefilled Syringe) 03/02/2018 Influenza (Generic) 03/22/2017, 6,03/21/2015,2013,03/06/2013,03/07/2012 Influenza Adult (Generic) 03/03/2018 PFIZER COVID-19 (ORIGINAL FORMULATION, PURPLE CAP) mRNA, LNP-S, PF, 30 MCG/0.3 ML DOSE 07/19/2020,06/28/2020 Pneumococcal (Pneumovax 23) 03/10/2009 Td 07/10/2002 Td (Tenivac) preservative free 01/27/2004 Tdap (Generic) 03/22/2016 Zoster (Zostavax) 96491 Unt/0.65Ml 03/17/2011 Family History Medical History Relation Comments Fibromyalgia Daughter Diabetes Mother Heart Mother CAD Relation Status Comments Daughter Mother (Age 69) Social History Tobacco Use Types Packs/Day Years Used Date Smoking Tobacco: Former Smokeless Tobacco: Never Alcohol Use Standard Drinks/Week Comments Yes 0 (1 standard drink = 0.6 oz pur e alcohol) AUDIT-C Answer Date Recorded Frequency of Alcohol Consumption Monthly or less 10/05/2018 Average Number of Drinks Not on file 019 Frequency of Binge Drinking Not on file 01/2019 PHQ-2 Answer Date Recorded Patient Health Questionnaire-2 Score 0 07/30/2022 Sex and Gender Information Value Date Recorded Sex Assigned at Not on file Legal Sex Male 11:29 PM CDT Gender Identity Not on file Sexual Orientation Not on file Last Filed Vital Signs Vital Sign Reading Time Taken Comments Blood Pressure 150/64 04/18/2023 1:18 PM BREAKFAST HOSTESS Pulse 64 07/30/2022 8:51 AM BREAKFAST HOSTESS Temperature - - Respiratory Rate - - Oxygen Saturation - - Inhaled Oxygen Concentration - - Weight 82.6 kg (182 lb) 04/18/2023 1:18 PM BREAKFAST HOSTESS Height 172.7 cm (5' 8) 07/30/2022 8:51 AM BREAKFAST HOSTESS Body Mass Index 27.67 07/30/2022 8:51 AM BREAKFAST HOSTESS Plan of Treatment Health Maintenance Due Date Last Done Comments ASCVD Statin 1942 Kidney Health Evaluation 1940 Pneumococcal Vaccine: 50+ Years (2 of 2 - PCV) 03/10/2010 03/10/2009 Zoster Vaccines (2 of 3) 05/12/2011 03/17/2011 RSV Immunization or 60+ Years (1 - 1-dose 75+ series) 2017 Annual Medicare Wellness Visit 07/29/2022 07/28/2021 Hemoglobin A1C 09/14/2023 03/15/2023, 10/2021, 07/28/2021, Additional history exists Diabetes: Retinopathy Eye Exam 12/02/2023 12/01/2021 ASCVD LDL 02/08/2024 02/07/2023, 07/2022, 02/02/2022, Additional history exists Lipid Panel 03/14/2024 03/14/2023, 01/28, 02/07/2023, Additional history exists COVID-19 Vaccine ( season) 2025 07/19/2020, 06/28/2020 DTaP, Tdap and Td Vaccines (2 - Td or Tdap) 03/22/2026 03/22/2016, 01/27/2004, 07/10/2002 Meningococcal B Vaccine Aged Out No l onger eligible based on patient's age to complete this topic Meningococcal Vaccine Aged Out No gonzalez dony eligible based on patient's age to complete this topic RSV Immunizations Under 20 Months Aged Out No longer eligible based on patient's age to complete this topic Procedures Procedure Name Priority Date/Time Associated Diagnosis Comments LIPID PANEL Routine 02/07/2023 1:34 PM CDT HEMOGLOBIN, GLYCOSYLATED Routine 02/02/2022 11:30 AM CDT Type 2 diabetes mellitus with diabetic neuropathy, without long-term current use of insulin DIABETIC RETINOPATHY EXAM (NEGATIVE)(SCAN ORDER) Routine 12/01/2021 from Last 3 Months or Most Recently Relevant to Health Maintenance Results * (ABNORMAL) LIPID PANEL (02/07/2023 1:34 PM CDT) [facility] CHOLESTEROL 110 0 - 199 MG/DL [facility] TRIGLYCERIDES 105 0.00 - 150.00 MG/DL [facility] Comment: NCEP REFERENCE VALUES FOR TRIGLYCERIDES: NORMAL: <150 MG/DL BORDERLINE HIGH: 150 - 199 MG/DL HIGH: 200 - 499 MG/DL VERY HIGH: >/= 500 MG/DL HDL 31(L) >40 MG/DL [facility] LDL (CALCULATED) 60 0 - 99 MG/DL [facility] Comment: CUTOFF VALUES RECOMMENDED BY THE NATIONAL CHOLESTEROL EDUCATION PROGRAM: DESIRABLE: CHOLESTEROL <200 MG/DL LDL <100 MG/DL BORDERLINE: CHOLESTEROL 200-239 MG/DL LDL 101-159 MG/DL HIGHER RISK: CHOLESTEROL >240 MG/DL LDL >160 MG/DL, HDL <40 MG/DL NON HDL CHOLESTEROL 79 NO REFERENCE RANGE MG/DL [facility] Comment: A REASONABLE GOAL FOR NON-HDL CHOLESTEROL IS ONE THAT IS 30 MG/DL HIGHER THAN THE LDL CHOLESTEROL GOAL. CHOL/HDL RATIO 3.5 0.0 - 5.0 . [facility] Comment: SEE ATTACHED INS CARD ON SEPTEMBER 21, 2022, [facility] CHANGED THE EQUATION FOR CALCULATING ESTIMATED LOW-DENSITY LIPOPROTEIN-CHOLESTEROL (LDL-C) FROM THE FRIEDEWALD EQUATION TO THE MARGUERITE/EMILIANO EQUATION. THIS NEW EQUATION IS ONLY VALID FOR LIPID PANELS WITH TRIGLYCERIDES < 400 MG/DL. STUDIES HAVE DEMONSTRATED THAT THIS NEW EQUATION WILL IMPROVE THE ACCURACY OF LDL-C, ESPECIALLY IN SCENARIOS WHEN LDL-C CONCENTRATIONS ARE RELATIVELY LOW (< 100 MG/DL), TRIGLYCERIDES ARE ELEVATED, OR PATIENT IS NON-FASTING. REFERENCES: - SCOTT EVERETT, ALLYSON GREENE, CHITRA MCNULTY, KANCHAN BLACK, KANCHAN BARRETT, STUART MINOR, AND LEONORA AGUILERA. 2013. COMPARISON OF A NOVEL METHOD VS THE FRIEDEWALD EQUATION FOR ESTIMATING LOW-DENSITY LIPOPROTEIN CHOLESTEROL LEVELS FROM THE STANDARD LIPID PROFILE. [place]: THE JOURNAL OF THE [employer]ATION 310 (19): [phone]. - ELHAM V, NICKY J, JACOB A, MARIBEL M, JOSÉ LUIS R, ELPIDIO E, IVÁN RS, ALE SR, MARGUERITE SS. FASTING VERSUS NONFASTING AND LOW-DENSITY LIPOPROTEIN CHOLESTEROL ACCURACY. CIRCULATION. 2018 MAY 31;137(1):10-19. 02/07/2023 1:34 PM CDT 02/08/2023 4:28 AM CDT Kamron Salguero DO LABORATORY Final Resul t [facility] [address] [place] [address], * (ABNORMAL) HEMOGLOBIN, GLYCOSYLATED (02/02/2022 11:30 AM CDT) HGB A1C 7.2(H) <5.7 % of total Hgb [facility] Comment: For someone without known diabetes, a hemoglobin A1c value of 6.5% or greater indicates that they may have diabetes and this should be confirmed with a follow-up test. For someone with known diabetes, a value <7% indicates that their diabetes is well controlled and a value greater than or equal to 7% indicates suboptimal control. A1c targets should be individualized based on duration of diabetes, age, comorbid conditions, and other considerations. Currently, no consensus exists regarding use of hemoglobin A1c for diagnosis of diabetes for children. 02/02/2022 11:3 0 AM CDT 02/03/2022 3:56 AM CDT Kamron Salguero DO LABORATORY Final Resul t [facility] [address] [place] [address] * DIABETIC RETINOPATHY EXAM (NEGATIVE)(SCAN) (12/01/2021) Kamron Salguero DO SCANNING Final Resul t Performing Organization Address City/[facility]/ZIP Co de Phone Number [facility] from Last 3 Months or Most Recently Relevant to Health Maintenance Insurance [employer] Care Teams Occupational Therapist Aide Relationship Specialty Start Date End Date Kamron Salguero DO PCP - General FAMILY PRACTICE 09/09/18 Coni Humphreys MD [address] [place] [address] Referring Physician GASTROENTEROLOGY 05/16/23
--- OUTSIDE RECORDS SUMMARY | 2025-02-18 11:33 | XMS_ITS | Clinical Summary ---
Author Organization [facility] Address [address] [address] Care Team Providers Care Adzing And Boring Machine Helper Name Role Phone Kamron Salguero DO Primary Care Provider [phone] Source Comments [facility],non-owned Affiliates and Associated Physician Practices is amultiple site organization consisting of ambulatory clinics and hospital sitesin [place], [place], [place] and [place]. This disclosure is being madepursuant to the Care Everywhere program and may not contain all information available regarding this patient. Last updated 18.[facility] Allergies No known active allergies Medications * Be aware that medications may not be up to date on this document. Alwaysverify current medications with the patient. Doxazosin Mesylate 8 MG TB24 Take 4 mg by mouth at bedtime Active glipiZIDE (GLUCOTROL) 5 MG tablet Take 1 (one) tablet by mouth 2 times daily, before breakfast and supper Active acetaminophen (Tylenol) 325 MG tablet Take 2 (two) tablets by mouth every 4 hours as needed Maximum allowable Acetaminophen amount = 4 Grams (4000 mg) / 24 hours. 3 Active aspirin (Aspirin) 81 MG chew tablet Take 1 (one) tablet by mouth once daily 3 Active atorvastatin (Lipitor) 80 MG tablet Take 1 (one) tablet by mouth at bedtime 3 Active pantoprazole EC (Protonix) 40 MG tablet Take 1 (one) tablet by mouth once daily 3 Active carvedilol (Coreg) 12.5 MG tablet Take 1 (one) tablet by mouth every 12 hours 3 Active Additional Information Patient taking differently: 25 mgOral EVERY 12 HOURS, Reported on 04/27/2023 amLODIPine (Norvasc) 5 MG tablet Take 1 (one) tablet by mouth once daily 3 Active Additional Information Patient taking differently: 10 mgOral DAILY, Reported on 04/27/2023 losartan (Cozaar) 100 MG tablet Take 1 (one) tablet by mouth once daily Active SITagliptin (Januvia) 50 MG tablet Take 1 (one) tablet by mouth once daily Active diphenhydrAMINE (Benadryl) 25 MG tablet Take 3 (three) tablets by mouth at bedtime Active dapagliflozin propanediol (Farxiga) 5 MG tablet Take 1 (one) tablet by mouth every morning Active Active Problems Problem Noted Date Diagnosed Date CRD (chronic renal disease), stage IV 03/22/2023 At risk for nutrition deficiency 03/22/2023 Right pontine stroke 03/14/2023 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6 oz pur e alcohol) rare PHQ-2 Answer Date Recorded Patient Health Questionnaire-2 Score 0 03/17/2023 Sex and Gender Information Value Date Recorded Sex Assigned at Not on file Legal Sex Male 6:18 AM ASSISTANT PROFESSOR OF NURSING Gender Identity Not on file Sexual Orientation Not on file Last Filed Vital Signs Vital Sign Reading Time Taken Comments Blood Pressure 171/56 04/27/2023 10:53 AM ASSISTANT PROFESSOR OF NURSING Pulse 78 04/27/2023 10:53 AM ASSISTANT PROFESSOR OF NURSING Temperature 37 C (98.6 F) 03/23/2023 5:00 PM CDT Respiratory Rate 16 04/27/2023 10:5 3 AM ASSISTANT PROFESSOR OF NURSING Oxygen Saturation 98% 03/23/2023 5:00 PM CDT Inhaled Oxygen Concentration - - Weight 85.6 kg (188 lb 12.8 oz) 023 10:53 AM ASSISTANT PROFESSOR OF NURSING Height 175.3 cm (5' 9) 03/15/2023 3:13 PM CDT Body Mass Index 27.88 03/15/2023 3:13 PM CDT Plan of Treatment Health Maintenance Due Date Last Done Comments DTAP/TDAP/TD VACCINES (1 - Tdap) 1961 PNEUMOCOCCAL VACCINE 50+ (1 of 2 - PCV) 1961 ZOSTER VACCINE (1 of 2) 1992 Respiratory Syncytial Virus (RSV) Vaccine Pt: or over 60 yrs (1 - 1-dose 75+ series) 2017 DIABETES RETINOPATHY SCREENING 03/14/2023 DIABETES-FOOT EXAM WITH MONOFILAMENT 03/14/2023 DIABETES-HGB A1C 09/14/2023 03/15/2023 DIABETES-SERUM CREATININE 04/18/20242022, 04/18/2023, 03/22/2023, Additional history exists DEPRESSION SCREENING 05/30/2024 03/14/2023 DIABETES - URINE PROTEIN SCREENING 05/30/2024 MEDICARE AW CALENDAR YEAR 2024 COVID-19 VACCINE ( season) 2025 07/19/2020, 06/28/2020 INFLUENZA VACCINE (#1) 2025 , 03/03/2018, 03/22/2017, Additional history exists HEPATITIS B VACCINE Aged Out No longe r eligible based on patient's age to complete this topic HIB VACCINE Aged Out No longer eligi ble based on patient's age to complete this topic HPV VACCINE Aged Out No longer eligi ble based on patient's age to complete this topic MENINGOCOCCAL (Group B) VACCINE SHARED DECISION-MAKING Aged Out No longer eligible based on patient's age to complete this topic MENINGOCOCCAL GROUPS A/C/Y/W VACCINE Aged Out No longer eligible based on patient's age to complete this topic Procedures Procedure Name Priority Date/Time Associated Diagnosis Comments BASIC METABOLIC PANEL (CALCIUM TOTAL) Routine 03/22/2023 4:44 AM CDT HEMOGLOBIN A1C Routine 03/15/2023 1:38 AM CDT from Last 3 Months or Most Recently Relevant to Health Maintenance Results * (ABNORMAL) BASIC METABOLIC PANEL (CALCIUM TOTAL) (03/22/2023 4:44 AM CDT) BUN 55(H) 7 - 26 mg/dL 03/22/2023 6:17 AM [facility] Creatinine 2.15(H) 0.71 - 1.16 mg/dL 03/22/2023 6:17 AM [facility] Sodium 140 136 - 145 mmol/L 03/22/2023 6:17 AM [facility] Potassium 3.9 3.5 - 4.5 mmol/L 03/22/2023 6:17 AM [facility] Chloride 107 98 - 107 mmol/L 03/22/2023 6:17 AM [facility] CO2 23 22 - 29 mmol/L 03/22/2023 6:17 AM [facility] Glucose 230(H) 70 - 115 mg/dL 03/22/2023 6:17 AM [facility] Calcium 9.2 8.4 - 10.2 mg/dL 03/22/2023 6:17 AM [facility] Anion Gap 10 6 - 16 03/22/2023 6:17 AM [facility] BUN/Creatinine Ratio 26(H) 7 - 23 03/22/2023 6:17 AM [facility] Osmolality Calculated 312(H) 275 - 295 mOsm/kg 03/22/2023 6:17 AM [facility] eGFR by CKD-EPI 30(L) >=90 mL/min/1.7 3 m2 03/22/2023 6:17 AM [facility] Blood BLOOD SPECIMEN / Unknown Venipuncture / Unknown 03/22/2023 4:44 AM CDT 03/22/2023 5:49 AM CDT us Aravind Shannon MD LAB - CHEMISTRY ORDERABLES Final Result Performing Organization Address City/[facility]/ZIP Co de Phone Number [facility] [address] [place] [address], [facility] [phone] * (ABNORMAL) HEMOGLOBIN A1C (03/15/2023 1:38 AM CDT) Hemoglobin A1c 7.2(H) <=5.6 % 03/15/2023 10:36 AM CDT [facility] Estimated Average Glucose 160 mg/dL 03/15/2023 10:36 AM CDT [facility] Comment: HbA1c Interpretation: Normal : < 5.7% Pre-diabetes: 5.7-6.4% Diabetes: Equal to or greater than 6.5% Test results diagnostic of diabetes should be repeated for confirmation. Treatment target values recommended by ADA and other clinical organizations should be used to evaluate metabolic control in patients. Reference: [place] [employer], Standards of Care in Diabetes -2020 In patients 70 years and older consider HbA1c target range of 7.0-7.5% (Reference: Freddy Sanchez et al. JAMDA. 2012) The Sebia assay for the measurement of HbA1c is a National Glycohemoglobin Standardization Program (NGSP) certified method. Blood BLOOD SPECIMEN / Unknown Lab Venipuncture / Unknown 03/15/2023 1:38 AM CDT 03/15/2023 2:28 AM CDT Aravind Shannon MD LAB - CHEMISTRY ORDERABLES Final Result Performing Organization Address City/[facility]/ZIP Co de Phone Number [facility] [address] [place] [address], [facility] [phone] from Last 3 Months or Most Recently Relevant to Health Maintenance Insurance [employer] MEDICARE ADV Advance Directives * Full Code (Latest Code Status on File) Date Activated Date Inactivated Comments 03/14/2023 9:40 PM 03/23/2023 6:48 PM * FULL RESUSCITATION Date Activated Date Inactivated Comments 07/06/2011 8:57 AM 07/07/2011 11:38 PM Care Teams Adzing And Boring Machine Helper Relationship Specialty Start Date End Date Kamron Salguero DO PCP - General Family Medicine 04/27/23
--- NOTE | 2025-02-18 11:58 | ECG_ITS ---
Test Date: 2025-02-18 12:30:04 Measurements Intervals [place] Rate: 71 P: 63 [place]: 167 QRS: 18 QRSD: 117 T: 35 QT: 395 QTc: 429 Interpretive Statements SINUS RHYTHM WITH OCCASIONAL VENTRICULAR PREMATURE COMPLEXES NONSPECIFIC T-WAVE ABNORMALITY No previous ECG available for comparison Electronically Signed On 02-18-2025 14:43:37 CDT by Mil Abreu M.D.
--- NOTE | 2025-02-18 12:00 | PC.NURSE ---
Spoke with Sejal GANNON about patient's symptoms and she states to not code stroke the patient, but place the stroke order set to get CT scan and blood work of patient. Patient states his dizziness is getting better that it was this morning. Patient has history of vertigo and TIA in 2017 with deficits including left sided facial droop and some slurred speech.
--- NOTE | 2025-02-18 12:03 | PC.NURSE ---
Will obtain EKG when patient returns from CT
[2025-02-18 12:07] LABS: Hematocrit 34.7 % (42.0-52.0); Hemoglobin 11.0 g/dL (14.0-18.0); Immature Granulocyte Percent A 0.5 % (0-0.5); Lymphocytes Absolute Auto 1.24 K/mm3 (0.9-3.2); Mean Corpuscular HGB Conc 31.7 g/dl (32-36); Mean Corpuscular Hemoglobin 29.1 pg (26-34); Mean Corpuscular Volume 91.8 fl (80-100); Nucleated Red Blood Cells Absolute Auto 0.000 K/mm3 (0.0-0.012); Nucleated Red Blood Cells Perc 0.0 % (0.0-0.2); Platelet Count Result 194 k/mm3 (150-375); Red Blood Count 3.78 M/mm3 (4.6-6.20); White Blood Count 10.4 K/mm3 (4.5-10.0)
[2025-02-18 12:25] LABS: INR 1.2; Partial Thromboplastin Time 27.9 Seconds (22.3-36.8); Prothrombin Time 15.0 Seconds (11.1-14.7)
[2025-02-18 12:33] LABS: Alanine Aminotransferase 18 U/L (6-50); Albumin Level 3.8 g/dL (3.5-5.1); Alkaline Phosphatase 94 U/L (38-126); Anion Gap 6 mmol/L (4-12); Aspartate Amino Transferase 28 U/L (17-59); Bilirubin,Total 0.5 mg/dL (0.2-1.3); Blood Urea Nitrogen 59 mg/dL (9-20); Calcium 9.2 mg/dL (8.4-10.2); Carbon Dioxide 29 mmol/L (22-30); Chloride 102 mmol/L (98-107); Estimated CRCL calculation 7 ml/min; Estimated Glomerular Filt Rate 15; Glucose 46 mg/dL (65-110); Potassium 3.6 mmol/L (3.4-5.0); Sodium 137 mmol/L (137-145); Total Protein 7.1 g/dL (6.3-8.2)
[2025-02-18 12:45] LABS: Troponin I < 0.012 ng/mL (0.000-0.034)
[2025-02-18] MEDS: DEXTROSE 50% 25 GM/50 ML SYRINGE IV PUSH (12:56)
--- NOTE | 2025-02-18 12:58 | ED_ITS ---
HPI - General Adult General Chief complaint: Dizziness Stated complaint: vertigo, dizziness since this am 0930 Time Seen by Provider: 02/18/25 12:08 History of Present Illness HPI narrative: Patient year old gentleman presents emergency department chief complaint of slurred speech and dizziness. The patient reports that about 930 this morning he was out in his garage talking to someone and had sudden onset of facial droop and slurred speech. The patient states that he felt off balance the patient does report that he has had a prior TIA and reports that he normally has for 10 chest symptoms. The patient denies chest pain denies shortness of breath Related Data Home Medications ?Medication ?Instructions ?Recorded ?Confirmed ?Last Taken ?Type ferrous sulfate 324 mg (65 mg 324 mg PO DAILY 06/23/23 02/18/25 06/23/23 08:00 History iron) tablet,delayed release Allergies Allergy/AdvReac Type Severity Reaction Status Date / Time No Known Allergies Allergy Verified 02/18/25 11:45 Review of Systems 2 Review of Systems: A 10 system review of systems was completed on the patient and is negative except for what is stated in the HPI. Nursing and ancillary documentation was reviewed. [facility] Past Medical History Medical History (Updated 02/18/25 @ 21:24 by Lois Casas APRN) Anxiety Diabetes mellitus type 2 in nonobese Mixed hyperlipidemia due to type 2 diabetes mellitus Hypertension associated with type 2 diabetes mellitus BMI 26.0-26.9,adult History of non-ST elevation myocardial infarction (NSTEMI) COPD (chronic obstructive pulmonary disease) Chronic kidney disease CAD (coronary artery disease) Surgical History Surgical History (Updated 02/18/25 @ 14:29 by Lois Casas APRN) History of spinal surgery History of cardiac catheterization History of heart artery stent x2 2011, x1 2020 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 No problems noted. Social History Social History Smoking packs per day: 1.5 Smoking cigarettes per day: 30.0 Years smoked: 40 Smoking pack-years: 60.00 Smoking status: Former smoker Second hand tobacco smoke exposure: Yes Alcohol intake: never Substance use: never Substance use type: does not use Do You Feel Safe in your Home?: Yes Lack of Transportation: No Lack of Food: Never True Current Housing: I Have Housing Concerned About Future Housing: No Difficulty Paying Gas/Electric Bills: No Difficulty Paying for Meds: No Currently Unemployed: No Education: Bachelor's Degree Difficulty w/ Childcare or Family Care: No Living arrangements: with family Occupation/Education: retired 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 Gender identity (if verbalized by the patient): Male Spiritual care concerns: No Exam 2 Narrative: GENERAL: Well-appearing, well-nourished, and in no acute distress. HEAD: Normocephalic, atraumatic. EYES: PERRLA and EOMI. ENT: Nares clear, no rhinorrhea or epistaxis. Mucous membranes moist. NECK: Supple. CHEST: Clear to auscultation. No respiratory distress. HEART: Regular rate and rhythm. No murmur heard. Normal peripheral pulses. ABDOMEN: Soft, nontender, nondistended, normal active bowel sounds. EXTREMITIES: Normal range of motion. No edema. SKIN: Warm, dry, no rash. NEURO: Slight left-sided facial asymmetry, slight slurred speech. (family reports this is his baseline). Alert and oriented x3. PSYCH: Normal mood and affect. Course Vital Signs Vital signs: Vital Signs Temperature 36.6 C 02/18/25 10:30 Pulse Rate 73 02/18/25 10:30 Respiratory Rate 18 02/18/25 10:30 Blood Pressure 195/94 H 02/18/25 10:30 Pulse Oximetry 100 02/18/25 10:30 Oxygen Delivery Room Air 02/18/25 10:30 Temperature 36.7 C 02/18/25 20:58 Pulse Rate 76 02/18/25 20:58 Respiratory Rate 18 02/18/25 20:58 Blood Pressure 151/69 H 02/18/25 20:58 Pulse Oximetry 100 02/18/25 20:58 Oxygen Delivery Room Air 02/18/25 19:29 Fraction of Inspired Oxygen 02/18/25 19:29 Medical Decision Making Vital Signs Vital Signs: Vital Signs Temperature 36.6 C 02/18/25 10:30 Pulse Rate 73 02/18/25 10:30 Respiratory Rate 18 02/18/25 10:30 Blood Pressure 195/94 H 02/18/25 10:30 Pulse Oximetry 100 02/18/25 10:30 Oxygen Delivery Room Air 02/18/25 10:30 Temperature 36.7 C 02/18/25 20:58 Pulse Rate 76 02/18/25 20:58 Respiratory Rate 18 02/18/25 20:58 Blood Pressure 151/69 H 02/18/25 20:58 Pulse Oximetry 100 02/18/25 20:58 Oxygen Delivery Room Air 02/18/25 19:29 Fraction of Inspired Oxygen 21 02/18/25 19:29 Lab Data 02/18/25 12:02 02/18/25 12:02 Labs: Lab Results 02/18/25 02/18/25 02/18/25 Range/Units 12:02 12:53 13:38 WBC 10.4 H (4.5-10.0) K/mm3 RBC 3.78 L (4.6-6.20) M/mm3 Hgb 11.0 L (14.0-18.0) g/dL Hct 34.7 L (42.0-52.0) % MCV 91.8 (80-100) fl MCH 29.1 (26-34) pg MCHC 31.7 L (32-36) g/dl RDW 14.0 (11.5-14.5) % Plt Count 194 (150-375) k/mm3 MPV 10.1 (7.4-10.4) fl Immature Gran % (Auto) 0.5 (0-0.5) % Neut % (Auto) 76.3 H (45.5-73.1) % Lymph % (Auto) 11.9 L (18.3-44.2) % [place] % (Auto) 6.8 (2.6-8.5) % Eos % (Auto) 3.6 (0-4.4) % Baso % (Auto) 0.9 (0.2-1.2) % Lymph # (Auto) 1.24 (0.9-3.2) K/mm3 [place] # (Auto) 0.7 H (0.1-0.6) K/mm3 Eos # (Auto) 0.4 H (0-0.3) K/mm3 Baso # (Auto) 0.1 (0.0-0.1) K/mm3 Abs Immat Gran (auto) 0.05 H (0.00-0.031) K/mm3 Absolute Neuts (auto) 8.0 H (1.3-6.7) K/mm3 Absolute Nucleated RBC 0.000 (0.0-0.012) K/mm3 Nucleated RBC % 0.0 (0.0-0.2) % PT 15.0 H (11.1-14.7) Seconds INR 1.2 APTT 27.9 (22.3-36.8) Seconds Sodium 137 (137-145) mmol/L Potassium 3.6 (3.4-5.0) mmol/L Chloride 102 (98-107) mmol/L Carbon Dioxide 29 (22-30) mmol/L Anion Gap 6 (4-12) mmol/L BUN 59 H (9-20) mg/dL Creatinine 3.77 H (0.7-1.3) mg/dL Estim Creat Clear Calc 7 ml/min Estimated GFR 15 L (59 - ) Glucose 46 L* (65-110) mg/dL POC Capillary Glucose 57 L* 139 H (65-105) mg/dl Hemoglobin A1c 7.3 H (<5.7) % Calcium 9.2 (8.4-10.2) mg/dL Total Bilirubin 0.5 (0.2-1.3) mg/dL AST 28 (17-59) U/L ALT 18 (6-50) U/L Alkaline Phosphatase 94 (38-126) U/L Troponin I < 0.012 (0.000-0.034) ng/mL NT-Pro-B Natriuret Pep 2140 H (19.9-100) pg/mL Total Protein 7.1 (6.3-8.2) g/dL Albumin 3.8 (3.5-5.1) g/dL Discharge Plan Discharge Clinical Impression: Hypoglycemia, Acute kidney injury Patient Disposition: Still a Patient Condition: Stable
--- OUTSIDE RECORDS SUMMARY | 2025-02-18 13:02 | XMS_ITS | Encounter Summary ---
Author Organization [facility] Healthcare Address [address] [place] [address] Care Team Providers Care Surveyor Geodetic Name Role Phone Kamron Salguero DO Primary Care Provider Referral, Self Unavailable Unavailable Wyatt Price DO Primary Care Provider [phone] Encounter Details Date Type Department Care Team (Late st Contact Info) Description 06/24/2023 Orders Only [facility] Information Management [address] [place] [id number] Scanning, Provider Social History Tobacco Use Types Packs/Day Years Used Date Smoking Tobacco: Former Cigarettes 1 40 0 05/30/1960 - 05/29/2000 Smokeless Tobacco: Never Comments:always cigaretses, Quit Apr 2000 AUDIT-C Answer Date Recorded Q1: How often do you have a drink containing alc ohol? Monthly or less 06/16/2023 Average Number of Drinks Not on file 024 Q3: How often do you have si x or more drinks on one occasion? Never 06/16/2023 Personal Safety Answer Date Recorded Have you ever been in or are you currently in a harmful physical or emotional relationship or is someone making you feel afraid or unsafe? 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 Gender Identity Not on file Sexual Orientation Not on file documented as of this encounter Plan of Treatment Not on file documented as of this encounter Procedures Procedure Name Priority Date/Time Associated Diagnosis Comments CARDIOLOGY DOCUMENT SCAN 06/24/2023 documented in this encounter Results * Cardiology Document Scan (06/24/2023) Anatomical Region Laterality Modality Other us Provider Scanning CV CARDIAC SERVICES PROCEDURES Edited Result - Final documented in this encounter Visit Diagnoses Not on filedocumented in this encounter Care Teams Surveyor Geodetic Relationship Specialty Start Date End Date Kamron Salguero DO PCP - General Family Practice 10/25/18 02/21/24 Wyatt Price DO [address] [place] [address] PCP - General Family Medicine 02/22/24 Referral, Self Referring Physician 10/30/18 documented as of this encounter
--- OUTSIDE RECORDS SUMMARY | 2025-02-18 13:02 | XMS_ITS | Clinical Summary ---
Author Organization [facility]es[facility] Address [address] [address] Care Team Providers Care Layout Former Name Role Phone Kamron Salguero Primary Care [...] migh t be different from the original. Senior Recruitment Consultant - Dr. 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 Gender Identity Not on file Sexual Orientation Not on file Occupation Industry Job Start Date Job End Date Not on file Not on file Not on file Not on file Last Filed Vital Signs Vital Sign Reading Time Taken Comments Blood Pressure 140/72 12/01/2022 1:11 PM CDT Pulse 64 12/01/2022 1:11 PM CDT Temperature 36.4 C (97.5 F) 04/07/2020 1:25 PM EXTERIOR DESIGNER Respiratory Rate 18 10/06/2020 12:5 3 PM [...] Salguero DO CHEMISTRY ORDERABLES F inal Result [facility] CLIA# [id number] [address] [place] [address] from Last 3 Months or Most Recently Relevant to Health Maintenance Insurance [employer] PPO MCR Advance Directives For more information, please contact: [phone] * Full Code (Latest Code Status on File) Date Activated Date Inactivated Comments 03/19/2016 10:23 AM 03/19/2016 7:53 PM Care Teams Layout Former Relationship Specialty Start Date End Date Kamron Salguero DO PCP - General Family Practice 02/26/15
--- OUTSIDE RECORDS SUMMARY | 2025-02-18 13:02 | XMS_ITS | Clinical Summary ---
Author Organization [facility] [employer] Address [address] [facility] [place] [address] Care Team Providers Care Reproducer Name Role Phone Kamron Salguero DO Primary Care Provider [phone] Source Comments [facility],non-owned Affiliates and Associated Physician Practices is amultiple site organization consisting of ambulatory clinics and hospital sitesin [place], [place], [place] and [place]. This disclosure is being madepursuant to the Care Everywhere program and may not contain all information available regarding this patient. 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 Gender Identity Not on file Sexual Orientation Not on file Last Filed Vital Signs Vital Sign Reading Time Taken Comments Blood Pressure 171/56 04/27/2023 10:53 AM MENTAL RETARDATION NURSE Pulse 78 04/27/2023 10:53 AM MENTAL RETARDATION NURSE Temperature 37 C (98.6 F) 03/23/2023 5:00 PM CDT Respiratory Rate 16 04/27/2023 10:5 3 AM MENTAL RETARDATION NURSE Oxygen Saturation 98% 03/23/2023 5:00 PM CDT Inhaled Oxygen Concentration - - Weight 85.6 kg (188 lb 12.8 oz) 023 10:53 AM MENTAL RETARDATION NURSE Height 175.3 cm (5' 9) 03/15/2023 3:13 [...] 7 - 26 mg/dL 03/22/2023 6:17 AM [facility] Creatinine 2.15(H) 0.71 - 1.16 mg/dL 03/22/2023 6:17 AM [facility] Sodium 140 136 - 145 mmol/L 03/22/2023 6:17 AM [facility] Potassium 3.9 3.5 - 4.5 mmol/L 03/22/2023 6:17 AM [facility] Chloride 107 98 - 107 mmol/L 03/22/2023 6:17 AM [facility] CO2 23 22 - 29 mmol/L 03/22/2023 6:17 AM [facility] Glucose 230(H) 70 - 115 mg/dL 03/22/2023 6:17 AM [facility] Calcium 9.2 8.4 - 10.2 mg/dL 03/22/2023 6:17 AM [facility] Anion Gap 10 6 - 16 03/22/2023 6:17 AM [facility] BUN/Creatinine Ratio 26(H) 7 - 23 03/22/2023 6:17 AM [facility] Osmolality Calculated 312(H) 275 - 295 mOsm/kg 03/22/2023 6:17 AM [facility] eGFR by CKD-EPI 30(L) >=90 mL/min/1.7 3 m2 03/22/2023 6:17 AM [facility] Blood BLOOD SPECIMEN / Unknown Venipuncture / Unknown 03/22/2023 4:44 AM CDT 03/22/2023 5:49 AM CDT us Aravind Shannon MD LAB - CHEMISTRY ORDERABLES Final Result Performing Organization Address City/[facility]/ZIP Co de Phone Number [facility] [address] [place] [address], [facility] [phone] * (ABNORMAL) HEMOGLOBIN A1C (03/15/2023 1:38 AM CDT) Hemoglobin A1c 7.2(H) <=5.6 % 03/15/2023 10:36 AM CDT [facility] Estimated Average Glucose 160 mg/dL 03/15/2023 10:36 AM CDT [facility] Comment: HbA1c Interpretation: Normal : < 5.7% Pre-diabetes: 5.7-6.4% Diabetes: Equal to or greater than 6.5% Test results diagnostic of diabetes should be repeated for confirmation. Treatment target values recommended by ADA and other clinical organizations should be used to evaluate metabolic control in patients. Reference: [place] Diabetes Association, Standards of Care in Diabetes -2020 In patients 70 years and older consider HbA1c target range of 7.0-7.5% (Reference: Freddy Sanchez et al. JAMDA. 2012) The Sebia assay for the measurement of HbA1c is a National Glycohemoglobin Standardization Program (NGSP) certified method. Blood BLOOD SPECIMEN / Unknown Lab Venipuncture / Unknown 03/15/2023 1:38 AM CDT 03/15/2023 2:28 AM CDT Aravidn Shannon MD LAB - CHEMISTRY ORDERABLES Final Result Performing Organization Address City/[facility]/ZIP Co de Phone Number [facility] [address] [place] [address], [facility] [phone] from Last 3 Months or Most Recently Relevant to Health Maintenance Insurance [employer] MEDICARE ADV Advance Directives * Full Code (Latest Code Status on File) Date Activated Date Inactivated Comments 03/14/2023 9:40 PM 03/23/2023 6:48 PM * FULL RESUSCITATION Date Activated Date Inactivated Comments 07/06/2011 8:57 AM 07/07/2011 11:38 PM Care Teams Reproducer Relationship Specialty Start Date End Date Kamron Salguero DO PCP - General Family Medicine 04/27/23
--- OUTSIDE RECORDS SUMMARY | 2025-02-18 13:02 | XMS_ITS | Clinical Summary ---
Author Organization [facility] Address [address] [place] [address] Care Team Providers Care Mercury Washer Name Role Phone Referral, Self Unavailable Unavailable Wyatt Price DO Primary Care Provider Allergies Active Allergy Reactions Criticality Noted Date Comments Sildenafil Unknown 09/02/2012 Medications ASPIRIN ORAL Take 81 mg by mouth daily Active fluticasone furoate-vilanter oL (BREO ELLIPTA) 100-25 mcg/dose diskus inhaler Inhale 1 puff daily Rinse mouth with water after use. Do not swallow. Active -dflz- Lmfolate-algal 27 mg iron-1.13 mg-581.92 mg capsule Take by mouth Active ferrous sulfate 325 mg (65 mg of elemental iron) tabletIndication s:Iron Deficiency Anemia Take 1 tablet (325 mg total) by mouth daily with breakfast Active nitroglycerin (NITROSTAT) 0.[address] 1 tablet (0.4 mg total) under the tongue every 5 (five) minutes as needed for chest pain 90 tablet 4 Active carvediloL (COREG) 25 mg tablet Take 1 tablet (25 mg total) by mouth 2 (two) times a day with meals 180 tablet 3 4 08/21/[address] (PROTONIX) 40 mg EC tablet TAKE 1 TABLET BY MOUTH EVERY MORNING 90 tablet 2 4 Active losartan (COZAAR) 100 mg tablet Take 1 tablet (100 mg total) by mouth daily Active atorvastatin (LIPITOR) 80 mg tablet TAKE 1 TABLET(80 MG) BY MOUTH DAILY 90 tablet 4 Active LANTUS 100 unit/mL (3 mL) pen for injection ADMINISTER 5 UNITS UNDER THE SKIN DAILY 4 Active Trulicity 0.75 mg/0.5 mL pen injector ADMINISTER 0.75 MG UNDER THE SKIN EVERY 7 DAYS 2 mL 2 4 Active cloNIDine (CATAPRES) 0.2 mg tablet Take 1 tablet (0.2 mg total) by mouth 2 (two) times a day 4 Active glipiZIDE (GLUCOTROL) 5 mg tabletIndication s:type 2 diabetes mellitus Take 1 tablet (5 mg total) by mouth 2 (two) times a day before breakfast and lunch Active Januvia 25 mg tablet Take 1 tablet (25 mg total) by mouth daily 5 Active hydroCHLOROthiaz negrito (HYDRODIURIL) 25 mg tablet Take 1 tablet (25 mg total) by mouth daily 90 tablet 3 5 05/14/20 25 Active dapagliflozin propanediol (FARXIGA) 10 mg tablet Take 1 tablet (10 mg total) by mouth daily 90 tablet 3 5 Active Active Problems Problem Noted Date Diagnosed Date Right lower lobe lung mass 10/07/2023 Pneumonia of right lower lobe due to infectious organism 10/07/2023 Hemoptysis 10/06/2023 Chronic kidney disease (CKD), stage IV (severe) 08/10/2023 Overview (08/10/2023): Overall stable and following with Nephrology Routine physical examination 08/10/2023 Overview (08/10/2023): July 30, 2022 August 10, 2023 Status post placement of implantable loop record er 06/27/2023 Overview (06/27/2023): [employer] IV Loop Recorder. Dx; Cryptogenic Stroke. DOI 06/24/2023-Giuliana. [employer] remote home monitoring. History of stroke with residual deficit 04/18/20 23 Overview (08/10/2023): Some overall global weakness in memory loss Being very careful with driving Using a cane for steadiness Anemia in chronic kidney disease (CKD) Overview (08/10/2023): Stable condition Following with Nephrology Diastolic dysfunction 02/02/2022 Overview (08/10/2023): Noted on Echo Apr 2021 Overall stable on current medications and he will continue same medications and routine cardiology follow-up Type 2 diabetes mellitus wit h diabetic peripheral angiopathy without gangrene, without long-term current use of insulin 07/25/2020 Overview (08/10/2023): Diabetes and hypertension with CKD, neuropathy, and peripheral vascular disease Overall stale Blood pressure controlled A1c 7.2 in February 2023 He follows with Nephrology with GFR range of 16-27 over the past year He has on a statin and an ARB Anxiety 05/19/2018 Benign hypertension with CKD (chronic kidney disease) stage IV 09/19/2017 Overview (08/10/2023): Hypertension and CKD overall stable Continue with Nephrology History of coronary artery stent placement 08/31 Primary hypertension 02/26/2013 Overview (08/10/2023): Chronic, stable condition on current medications Continue same regimen and continue with routine cardiology follow up Chronic obstructive pulmonary disease 09/02/2012 Overview (08/10/2023): Doing well on Breo Continue same medication regimen Enlarged prostate without lo wer urinary tract symptoms (luts) 09/02/2012 Overview (08/10/2023): Chronic, stable condition on Cardura Continue same regimen Type 2 diabetes mellitus wit h diabetic polyneuropathy, without long-term current use of insulin 08/22/2012 Overview (08/10/2023): Diabetes and hypertension with CKD, neuropathy, and peripheral vascular disease Overall stale Blood pressure controlled A1c 7.2 in February 2023 He follows with Nephrology with GFR range of 16-27 over the past year He has on a statin and an ARB Assessment & Plan (08/10/2023 12:16 PM CDT): Update A1c today Update ophthalmology exam Home blood sugar readings are high in the 300 range and will add Trulicity today Dyslipidemia 08/22/2012 Overview (08/10/2023): Chronic, stable condition on statin Continue same medications Nuclear senile cataract 03/23/2012 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 [address] [place] [phone] Status post placement of implantable loop recorder; Cryptogenic stroke (HCC) 02/05/2025 11:45 AM CDT Office Visit [facility] at [address] [phone] Caleb Giordano MD History of coronary artery stent placement (Primary Dx); Status post placement of implantable loop recorder 12/31/2024 7:30 AM CDT Ancillary Procedure [facility] [address] [place] [phone] Status post placement of implantable loop recorder; Cryptogenic stroke (HCC) 11/19/2024 7:15 AM CDT Ancillary Procedure [facility] [address] [place] [phone] Status post placement of implantable loop recorder; Cryptogenic stroke (HCC) from Last 3 Months Immunizations Immunization Administration Dates Next Due Influenza, Quad, Adjuvantate d, Intramuscular 03/25/2022,04/06/2019 Influenza, Quadrivalent, Hig h Dose, Preservative Free, Intrr 03/02/2023,02/26/2021,03/02/2018 Influenza, Quadrivalent, Rec ombinant, Egg Free, Preservative Free, Intramuscular 03/11/2020 Influenza, Trivalent, Adjuva nted, Intramuscular 04/06/2019 Influenza, Trivalent, High D ose, Split, Preservative Free, Intramuscular 03/03/2018,03/02/2018 Influenza, Unspecified 03/03/2018,2016,03/22/2016,03/21,03/19/2014,03/06/2013,03/07/2012 Pneumococcal Conjugate Pcv20 08/10/2023 Pneumococcal Polysaccharide PPV23 03/10/2009 TD Preservative Free 01/27/2004 Td, adsorbed 07/10/2002 Tdap 03/22/2016 ZOSTER LIVE 03/17/2011 Surgical History Surgery Date Site/Laterality Comments APPENDECTOMY still have appendix BACK SURGERY CARDIAC STENT PLACEMENT OTHER SURGICAL HISTORY fake eye SPINE SURGERY 1993 Herniated disk COLONOSCOPY W/ POLYPECTOMY OTHER SURGICAL HISTORY loop recorder placement 05/2023 Medical History Medical History Date Comments Heart disease Jul 06 2011 2 stints COPD (chronic obstructive pu lmonary disease) Diabetes (HCC) Hypertension ? 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 Family History Medical History Relation Name Comments Alcohol abuse Father Bruce Henriquez Heart disease Father Bruce Henriquez Heart disease Mother Paulette Edwards [place] Stroke Mother Paulette Edwards [place] Rip shment Relation Name Status Comments Father Bruce Henriquez Mother Paulette Edwards Global Filmdemic Freshment Deceas ed Social History Tobacco Use Types Packs/Day Years Used Date Smoking Tobacco: Former Cigarettes 1 40 0 05/30/1960 - 05/29/2000 Smokeless Tobacco: Never Tobacco Cessation:Counseling Given: Not Answered Comments:always cigaretses, Quit Apr 2000 [facility] Utilities Answer Date Recorded In the past 12 months has [employer], gas, oil, or water company threatened to shut off services in your home? No 10/07/2023 Social Connection and Isolation Panel Answer Date Recorded In a typical week, how many times do you talk on the phone with family, friends, or neighbors? More than three times a week 10/07/2023 How often do you get togethe r with friends or relatives? More than three times a week 10/07/2023 How often do you attend chur ch or protestant services? Never 10/07/2023 Do you belong to any clubs o r organizations such as orthodox groups, unions, fraternal or athletic groups, or school groups? No 10/07/2023 How often do you attend meet ings of the clubs or organizations you belong to? Never 10/07/2023 Are you , , di vorced, , never , or living with a partner? 10/07/2023 AUDIT-C Answer Date Recorded Q1: How often do you have a drink containing alc ohol? Never 11/15/2024 Average Number of Drinks Not on file 025 Frequency of Binge Drinking Not on file 10/28 Overall Financial Resource Strain (CARDIA) Answe r Date Recorded How hard is it for you to pa y for the very basics like food, housing, medical care, and heating? Not hard at all 10/07/2023 PHQ-2 Answer Date Recorded PHQ-2 Total Score (If total score is 3 or more points, staff should administer the PHQ-9) 2 08/10/2023 Hunger Vital Sign Answer Date Recorded Within the past 12 months, y ou worried that your food would run out before you got the money to buy more. Never true 10/07/19 24 Within the past 12 months, t he food you bought just didn't last and you didn't have money to get more. Never true 10/07/2023 PRAPARE - Transportation Answer Date Re corded In the past 12 months, has l ack of transportation kept you from medical appointments or from getting medications? No 09/27 In the past 12 months, has l ack of transportation kept you from meetings, work, or from getting things needed for daily living? No 10/07/2023 Housing Stability Vital Sign Answer Antonio e Recorded In the last 12 months, was t here a time when you were not able to pay the mortgage or rent on time? No 10/07/2023 In the last 12 months, how many places have you lived? 1 10/07/2023 In the last 12 months, was t here a time when you did not have a steady place to sleep or slept in a residential (including now)? No 10/07/2023 Personal Safety Answer Date Recorded Have you ever been in or are you currently in a harmful physical or emotional relationship or is someone making you feel afraid or unsafe? Denies 10/07/2023 Sex and Gender Information Value Date Recorded Sex Assigned at Not on file Legal Sex Male 12:38 PM [employer]ENTER ARCHITECT Gender Identity Not on file Sexual Orientation Not on file Obstetrics History Last Filed Vital Signs Vital Sign Reading Time Taken Comments Blood Pressure 138/86 02/05/2025 11:33 AM CDT Pulse 51 02/05/2025 11:33 AM CDT Temperature 37.4 C (99.3 F) 11/15/2024 3:32 PM CDT Respiratory Rate 16 03/12/2024 11:5 8 AM CDT Oxygen Saturation 94% 02/05/2025 11: 33 AM CDT Inhaled Oxygen Concentration - - Weight 75.3 kg (165 lb 14.4 oz) 025 11:33 AM CDT Height 175.3 cm (5' 9) 02/05/2025 11:3 3 AM CDT Body Mass Index 24.5 02/05/2025 11:33 AM CDT Plan of Treatment Health Maintenance Due Date Last Done Comments Dilated Eye Exam 1942 Foot Exam 1942 Hepatitis B Screening 1960 Zoster Vaccine (2 of 3) 05/12/2011 03/17/2011 Albumin Creatinine Ratio, Urine 08/31/2023 , 09/04/2021 Hemoglobin A1C 02/10/2024 08/10/2023, 02/27, 07/25/2018 Depression Screening 08/09/2024 08/10/2023 Well Visit 65+ 08/09/2024 08/10/2023 Fall Risk Assessment 10/08/2024 10/09/2023, 08/10/19 24 Covid-19 Vaccine (6 2024- 6 season) 2025 03/02/2023, 09/14/2021, 02/26/2021, Additional history exists Influenza Vaccine (#1) 2025 , 03/25/2022, 02/26/2021, Additional history exists Lipid Panel 02/14/2025 02/15/2024, 02/27, 02/07/2023, Additional history exists eGFR 11/12/2025 11/12/2024, 07/01, 04/02/2024, Additional history exists DTaP/Tdap/Td Vaccine (2 - Td or Tdap) 03/22/2026 03/22/2016, 01/27/2004, 07/10/2002 Pneumococcal vaccine 65+ Completed 08/10/2023, 02/27 Procedures Procedure Name Priority Date/Time Associated Diagnosis Comments DEVICE CHECK - REMOTE Routine 12/31/2024 4:00 PM CDT Status post placement of implantable loop recorder Cryptogenic stroke (HCC) DEVICE CHECK - REMOTE Routine 11/27/2024 12:36 PM CDT Status post placement of implantable loop recorder Cryptogenic stroke (HCC) BASIC METABOLIC PANEL Routine 11/12/2024 2:00 PM CDT Stage 3b chronic kidney disease (HCC) Anemia in stage 3b chronic kidney disease (HCC) LIPID PANEL Routine 02/15/2024 1:22 PM CDT HEMOGLOBIN A1C Routine 08/10/2023 11:44 AM CDT Type 2 diabetes mellitus with stage 3b chronic kidney disease, without long-term current use of insulin (HCC) ALBUMIN CREATININE RATIO, URINE Routine 08/30/2022 11:24 AM CDT Stage 3b chronic kidney disease (HCC) from Last 3 Months or Most Recently Relevant to Health Maintenance Results * DEVICE CHECK - REMOTE (12/31/2024 4:00 PM CDT) Anatomical Region Laterality Modality Other Narrative 01/15/2025 9:57 AM CDT [employer] Bi[employer] IV Loop Recorder. Dx; Cryptogenic Stroke. DOI 06/24/2023-Giuliana. [employer] remote home monitoring. Routine ILR remote. Normal device function. Battery function-Ok. Presenting rhythm: VS-SR 80 bpm with PVC's. Medications: Coreg, Aspirin, Lipitor. Counters since last scheduled transmission on 11/19/2024. No Pause, Tachy, Andry, or Symptom episodes noted. 4 AF episodes noted (Total 30 since implant), egm's SR with PVC's & PAC's. PVC burden 7.2%. PAC burden 0.9%. See scanned report. [employer] remote f/u 02/11/2025. Roma Akhtar RN Caleb Giordano MD [facility] PROC EDURES Final Result * DEVICE CHECK - REMOTE (11/27/2024 12:36 PM CDT) Anatomical Region Laterality Modality Other Narrative 12/21/2024 12:17 PM CDT [employer] Bi[employer]itor IV Loop Recorder. Dx; Cryptogenic Stroke. DOI 06/24/2023-Giuliana. [employer] remote home monitoring. Routine ILR remote. Normal device function. Battery function-Ok. Presenting rhythm: VS-Sinus rhythm with PVCs. Medications: Coreg, Aspirin, Lipitor. Counters since last scheduled transmission on 10/08/2024. No Pause, Tachy, Andry, or Symptom episodes noted. 3 AF episodes noted, egm's SR with PVC's PVC burden 16.1%. PAC burden 1.2%. See scanned report. [employer] remote f/u 12/31/2024. Roma Akhtar RN Caleb Giordano MD [facility] C[facility] PROC EDURES Final Result * (ABNORMAL) Basic metabolic panel (11/12/2024 2:00 PM CDT) [facility] Glucose 240(H) 65 - 99 mg/dL [facility] Comment: Fasting reference interval For someone without known diabetes, a glucose value >125 mg/dL indicates that they may have diabetes and this should be confirmed with a follow-up test. BUN 43(H) 7 - 25 mg/dL [facility] Creatinine 2.21(H) 0.70 - 1.22 mg/dL [facility] eGFR 29(L) > OR = 60 mL/min/1.7 3m2 [facility] BUN/creat ratio 19 6 - 22 (calc) [facility] Sodium 143 135 - 146 mmol/L [facility] Potassium, pl 4.7 3.5 - 5.3 mmol/L [facility] Chloride 104 98 - 110 mmol/L [facility] CO2 31 20 - 32 mmol/L [facility] Calcium 9.3 8.6 - 10.3 mg/dL [facility] Blood 11/12/2024 2:00 PM CDT 11/12/2024 2:00 PM CDT Narrative [facility] - 11/13/2024 3:43 AM CDT FASTING:NO FASTING: NO Shyam Sandoval MD LAB BLOOD ORDERABLES Final Re [facility]ult [email or web address] [address] [place] [address] * (ABNORMAL) Lipid panel (02/15/2024 1:22 PM CDT) Pathologist [facility] SCRIBED Cholesterol, Total 131 0 - 200 EXTERNAL LAB SCRIBED HDL 39(A) 40 - 100 EXTERNAL LAB SCRIBED LDL 69 0 - 100 EXTERNAL LAB SCRIBED Triglycerides 155(A) 0 - 150 EXTERNAL LAB Blood Historical Provider LAB BLOOD ORDERABLES Edit ed Result - Final EXTERNAL LAB * (ABNORMAL) Hemoglobin A1c (08/10/2023 11:44 AM CDT) Pathologist [facility] Hgb A1C 10.9(H) 4.0 - 5.6 % Comment:Testing performed by : [facility], [address] [place] [address], [place]., [address] Estimated Average Glucose 266 mg/dL [facility] Comment: The ADA recommends reporting an estimated Average Glucose (eAG) with all Hemoglobin A1c results using the equation derived from a study of 507 normal and diabetic adults. Minority populations were underrepresented and children were not included. (Diabetes Care 31:3268-8647, 2008). The eAG is not equivalent to a fasting glucose. Testing performed by: [facility], [address] [place] [address], [id number] Blood 08/10/2023 11:4 4 AM CDT 08/10/2023 12:36 PM CDT us Kamron Salguero DO LAB BLOOD ORDERABLES F inal Result Performing Organization Address City/[facility]/ZIP Co de Phone Number [facility] [address] [facility] Department [place] [address] * Albumin Creatinine Ratio, Urine (08/30/2022 11:24 AM CDT) Pathologist [facility] Creatinine, ur 63 20 - 320 mg/dL [facility] Microalbumin, ur 0.2 See Note: mg/dL [facility] Comment: Reference Range: Reference Range Not established Microalbumin/creat ratio 3 <30 mcg/mg creat [facility] Comment: The ADA defines abnormalities in albumin excretion as follows: Albuminuria Category Result (mcg/mg creatinine) Normal to Mildly increased <30 Moderately increased 30-299 Severely increased > OR = 300 The ADA recommends that at least two of three specimens collected within a 3-6 month period be abnormal before considering a patient to be within a diagnostic category. Urine 08/30/2022 11:2 4 AM CDT 08/30/2022 11:24 AM CDT us Shyam Sandoval MD LAB URINE ORDERABLES Final Re sult [facility] [address] [phone] from Last 3 Months or Most Recently Relevant to Health Maintenance Insurance [facility] MEDIC[facility] Advance Directives For more information, please contact: [phone] * Full Code (Latest Code Status on File) Date Activated Date Inactivated Comments 10/07/2023 1:08 AM 10/09/2023 4:36 PM Care Teams Mercury Washer Relationship Specialty Start Date End Date Wyatt Price DO [address] [place] [address] PCP - General Family Medicine 02/22/24 Referral, Self Referring Physician 10/30/18
--- OUTSIDE RECORDS SUMMARY | 2025-02-18 13:02 | XMS_ITS | Clinical Summary ---
Author Organization [facility] Address [address] [place] [address] Care Team Providers Care Can Crimper Name Role Phone Kamron Salguero DO Primary Care Provider Coni Humphreys MD Unavailable [phone] Allergies Active Allergy Reactions Criticality Noted [...] neuropathy, without long-term current use of insulin ([facility]) TAKE 3 TABLETS BY MOUTH EVERY MORNING THEN TAKE 2 TABLETS BY MOUTH EVERY EVENING 450 tablet 3 Active doxazosin (CARDURA) 8 MG tabletIndicatio ns:Enlarged prostate without lower urinary tract symptoms (luts) TAKE 1 TABLET BY MOUTH EVERY DAY 90 tablet 3 Active FARXIGA 5 MG TabIndications: Type 2 diabetes mellitus with diabetic neuropathy, without long-term current use of insulin ([facility]) TAKE 1 TABLET BY MOUTH DAILY 90 tablet 3 Active JANUVIA 50 MG tabletIndicatio ns:Type 2 diabetes mellitus with stage 3 chronic kidney disease, without long-term current use of insulin ([facility]) TAKE 1 TABLET BY MOUTH TWICE DAILY [...] disease, without long-term current use of insulin ([facility]) USE 1 STRIP TO TEST DAILY 300 strip 1 3 Active Active Problems Problem Noted Date Diagnosed Date History of stroke with residual deficit 04/18/20 23 Diastolic dysfunction 02/02/2022 Overview (02/02/2022): Noted on Echo Apr 2021 Type 2 diabetes mellitus wit h diabetic peripheral angiopathy without gangrene, without long-term current use of insulin ([facility]) 07/25/2020 PVC's (premature ventricular contractions) 04/07 Type 2 diabetes mellitus wit h diabetic neuropathy, without long-term current use of insulin ([facility]) 01/25/2020 Darrell Mcfarlane syndrome (geniculate herpes zoster) [...] year. Emphysema changes. Chronic obstructive pulmonary disease ([facility]) 09/02/2012 Diabetes mellitus with chron ic kidney disease ([facility]) 09/02/2012 Overview (10/05/2018): Description: STAGE 3; CKD [...] free 01/27/2004 Tdap (Generic) 03/22/2016 Zoster (Zostavax) 10165 Unt/0.65Ml 03/17/2011 Family History Medical History Relation [...] Comments Blood Pressure 150/64 04/18/2023 1:18 PM [employer] Pulse 64 07/30/2022 8:51 AM [employer] Temperature - - Respiratory Rate - - Oxygen Saturation - - Inhaled Oxygen Concentration - - Weight 82.6 kg (182 lb) 04/18/2023 1:18 PM [employer] Height 172.7 cm (5' 8) 07/30/2022 8:51 AM [employer] Body Mass Index 27.67 07/30/2022 8:51 AM [employer] Plan of Treatment Health Maintenance Due Date [...] (ABNORMAL) LIPID PANEL (02/07/2023 1:34 PM CDT) [facility] CHOLESTEROL 110 0 - 199 MG/DL [facility] TRIGLYCERIDES 105 0.00 - 150.00 MG/DL [facility] Comment: NCEP REFERENCE VALUES FOR TRIGLYCERIDES: NORMAL: <150 MG/DL BORDERLINE HIGH: 150 - 199 MG/DL HIGH: 200 - 499 MG/DL VERY HIGH: >/= 500 MG/DL HDL 31(L) >40 MG/DL [facility] LDL (CALCULATED) 60 0 - 99 MG/DL [facility] Comment: CUTOFF VALUES RECOMMENDED BY THE NATIONAL CHOLESTEROL EDUCATION PROGRAM: DESIRABLE: CHOLESTEROL <200 MG/DL LDL <100 MG/DL BORDERLINE: CHOLESTEROL 200-239 MG/DL LDL 101-159 MG/DL HIGHER RISK: CHOLESTEROL >240 MG/DL LDL >160 MG/DL, HDL <40 MG/DL NON HDL CHOLESTEROL 79 NO REFERENCE RANGE MG/DL [facility] Comment: A REASONABLE GOAL FOR NON-HDL CHOLESTEROL IS ONE THAT IS 30 MG/DL HIGHER THAN THE LDL CHOLESTEROL GOAL. CHOL/HDL RATIO 3.5 0.0 - 5.0 . [facility] Comment: SEE ATTACHED INS CARD ON SEPTEMBER 21, 2022, [facility] CHANGED THE EQUATION FOR CALCULATING ESTIMATED [...] LIPID PROFILE. [place]: THE [employer] 310 (19): [id number]. - ELHAM V, NICKY J, JACOB A, MARIBEL M, JOSÉ LUIS R, ELPIDIO E, IVÁN RS, ALE SR, MARGUERITE SS. FASTING VERSUS NONFASTING AND LOW-DENSITY LIPOPROTEIN CHOLESTEROL ACCURACY. CIRCULATION. 2018 MAY 31;137(1):10-19. 02/07/2023 1:34 PM CDT 02/08/2023 4:28 AM CDT Kamron Salguero DO LABORATORY Final Resul t [facility] [address] [place] [address], * (ABNORMAL) HEMOGLOBIN, GLYCOSYLATED (02/02/2022 11:30 AM [...] t [facility] [address] [place] [address] * DIABETIC RETINOPATHY EXAM (NEGATIVE)(SCAN) (12/01/2021) Kamron Salguero DO SCANNING Final Resul t Performing Organization Address City/[facility]/ZIP Co de Phone Number [facility] from Last 3 Months or Most Recently Relevant to Health Maintenance Insurance [employer] Care Teams Can Crimper Relationship Specialty Start Date End Date Kamron Salguero DO PCP - General FAMILY PRACTICE 09/09/18 Coni Humphreys MD [address] [place] [address] Referring Physician GASTROENTEROLOGY 05/16/23
[2025-02-18] MEDS: SODIUM CHLORIDE 0.9% IV 1,000 ML 999 ML IV CONT (13:16)
--- NOTE | 2025-02-18 14:11 | PM.IMHP ---
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 The patient presents here from home on 02/18 for further evaluation of dizziness and slurred speech. He reports onset of symptoms at 9:00 a.m. on 02/18. He reports he was in the garage talking to someone when it was noted that he had developed dizziness. He denies facial droop or slurred speech. He reported associated dizziness he described as his balance feeling off - reports he has had vertigo since his previous CVA in Jan. He denied associated focal weakness, focal numbness, dysarthria, slurred speech. During his evaluation in the emergency department he was found to be hypoglycemic with a glucose of 46. He reports he did not eat breakfast and his last meal was dinner the night before. He reports the dizziness only occurs when he moves around, not currently present has he is laying in bed. He is unsure if they have changed any of his DM medications lately, reports his PCP manages them. He does report he has had low blood sugars at home, unable to report how low it has gone as he does not have his log and he is unsure of frequency. He reports weight gain, however he has been instructed to gain weight. He reports swelling in his bilateral ankles, present for the past 6 months. He denies shortness of breath, cough, fever, chills, body aches, nausea, vomiting or diarrhea. History was limited as the patient declined to engage in meaningful conversation and expressed a strong desire to be left alone. Initial VS at presentation: 97.8? F, HR 73, R 18, 195/94, and 100% on RA. ED workup showed: WBC 10.4, hemoglobin 11.0 (12.6 and 202), INR 1.2, creatinine 3.77 and GFR 15 (2.42 and GFR 26 in 2023), glucose 46 (repeat 139), initial troponin negative. CXR showed small interstitial and airspace opacities in the mid and lower lungs (edema versus pneumonia), 1.5 cm nodular density projecting over the left lower hemithorax. EKG showed sinus rhythm with occasional ventricular premature complexes, moderate intraventricular conduction delay, nonspecific T-wave abnormality, rate 71. Review of Systems Review of Systems: All systems reviewed & are unremarkable except as noted in HPI and below (Limited due to patient's verbal aggressive behavior and unwillingness to pa) [facility] Past Medical History Medical History (Updated 02/18/25 @ 21:24 by Lois Casas APRN) Anxiety Diabetes mellitus type 2 in nonobese Mixed hyperlipidemia due to type 2 diabetes mellitus Hypertension associated with type 2 diabetes mellitus BMI 26.0-26.9,adult History of non-ST elevation myocardial infarction (NSTEMI) COPD (chronic obstructive pulmonary disease) Chronic kidney disease CAD (coronary artery disease) Surgical History Surgical History (Updated 02/18/25 @ 14:29 by Lois Casas APRN) History of spinal surgery History of cardiac catheterization History of heart artery stent x2 2011, x1 2020 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 No problems noted. Social History Social History Smoking packs per day: 1.5 Smoking cigarettes per day: 30.0 Years smoked: 40 Smoking pack-years: 60.00 Smoking status: Former smoker Second hand tobacco smoke exposure: Yes Alcohol intake: never Substance use: never Substance use type: does not use Do You Feel Safe in your Home?: Yes Lack of Transportation: No Lack of Food: Never True Current Housing: I Have Housing Concerned About Future Housing: No Difficulty Paying Gas/Electric Bills: No Difficulty Paying for Meds: No Currently Unemployed: No Education: Bachelor's Degree Difficulty w/ Childcare or Family Care: No Living arrangements: with family Occupation/Education: retired 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 Gender identity (if verbalized by the patient): Male Spiritual care concerns: No Meds Home Medications and Allergies Home Medications ?Medication ?Instructions ?Recorded ?Confirmed ?Type polyethylene glycol 3350 17 gram 17 g PO QAM PRN Constipation #30 ea 04/07/23 02/18/25 Rx oral powder packet (Miralax) ferrous sulfate 324 mg (65 mg 324 mg PO DAILY 06/23/23 02/18/25 History iron) tablet,delayed release losartan 100 mg tablet 100 mg PO DAILY #90 tabs 06/03/24 02/18/25 Rx dapagliflozin propanediol 5 mg 5 mg PO DAILY #90 tabs 06/21/24 02/18/25 Rx tablet (Farxiga) sitagliptin phosphate 25 mg tablet 25 mg PO DAILY #90 tabs 08/30/24 02/18/25 Rx (Januvia) glipizide 2.5 mg tablet 2.5 mg PO DAILY #90 tabs 09/03/24 02/18/25 Rx Breo Ellipta 100 mcg-25 mcg/dose See Rx Instructions .Route 10/01/24 02/18/25 Rx powder for inhalation (fluticasone .COMPLEX #60 ea furoate-vilanterol) hydrochlorothiazide 12.5 mg tablet 12.5 mg PO DAILY #90 tabs 11/02/24 02/18/25 Rx atorvastatin 80 mg tablet 80 mg PO DAILY #90 tabs 11/28/24 02/18/25 Rx carvedilol 25 mg tablet (Coreg) 25 mg PO Q12H 90 days #180 tabs 11/28/24 02/18/25 Rx pantoprazole 40 mg tablet,delayed 40 mg PO DAILY #90 tabs 11/28/24 02/18/25 Rx release blood sugar diagnostic #100 ea 01/07/25 02/18/25 Rx aspirin 81 mg tablet 81 mg PO DAILY #90 tabs 01/25/25 02/18/25 Rx insulin glargine 100 unit/mL (3 See Rx Instructions .Route 02/03/25 02/18/25 Rx mL) subcutaneous pen (Lantus .COMPLEX #15 mL Solostar U-100 Insulin) clonidine HCl 0.2 mg tablet 0.2 mg PO BID 90 days #180 tabs 02/09/25 02/18/25 Rx dulaglutide 1.5 mg/0.5 mL See Rx Instructions .Route 02/13/25 02/18/25 Rx subcutaneous pen injector .COMPLEX #2 mL (Trulicity) Allergies Allergy/AdvReac Type Severity Reaction Status Date / Time No Known Allergies Allergy Verified 02/18/25 11:45 Vital Signs Vital Signs - 24 hr 02/18/25 10:30 02/18/25 11:33 02/18/25 13:17 Temperature 97.8 F Pulse Rate 73 68 74 Respiratory Rate 18 14 18 Blood Pressure 195/94 H 178/98 H 144/55 H Pulse Oximetry 100 100 98 Oxygen Delivery Room Air Room Air Exam Const: General: comfortable and no acute distress Other: , male, elderly, nontoxic appearance HENMT: Face/Nose/Sinus: Normal nares present Mouth: Yes moist mucous membranes Eyes: General: appearance normal, both eyes and all related structures Sclera: sclerae normal Pupils: Equal, round and reactive pupils present EOM: EOMs intact bilaterally Resp: Effort & Inspection: normal respiratory effort Auscultation: clear to auscultation bilaterally Cardio: Rate: regular rate Rhythm: regular rhythm Other: S1-S2 present without murmur, rub, ectopy GI: Other: Unable to examine abdomen as the patient refused. Skin: General skin exam: normal color and no rashes or lesions noted Wounds: no wounds Neuro: Speech: normal speech Other: A&O x4, limited due to refusal. Extrem: Other: Trace edema to bilateral ankles, symmetric and nonpitting. Psych: Attitude: Belligerent attititude/behavior present Other: Patient verbally aggressive, hostile, refused to answer most questions and expressed anger at being admitted. Displaying threatening gestures including pointing fingers and placing hands near providers face. H&P: Results Labs Labs: Short CBC 02/18/25 Range/Units 12:02 WBC 10.4 H (4.5-10.0) K/mm3 Hgb 11.0 L (14.0-18.0) g/dL Hct 34.7 L (42.0-52.0) % Plt Count 194 (150-375) k/mm3 BMP 02/18/25 12:02 Sodium 137 Potassium 3.6 Chloride 102 Carbon Dioxide 29 BUN 59 H Creatinine 3.77 H Glucose 46 L* Calcium 9.2 Cardiac Enzymes 02/18/25 Range/Units 12:02 Troponin I < 0.012 (0.000-0.034) ng/mL Liver Function 02/18/25 Range/Units 12:02 Total Bilirubin 0.5 (0.2-1.3) mg/dL AST 28 (17-59) U/L ALT 18 (6-50) U/L Alkaline Phosphatase 94 (38-126) U/L Albumin 3.8 (3.5-5.1) g/dL Assessment and Plan Assessment and plan (1) Facial droop: Code(s): R29.810 - Facial weakness Status: Acute Assessment and Plan: Reported dizziness, has been ongoing for some time per patient. He denies facial droop or slurred speech. Per chart review, he was talking to someone in his garage when they noticed a facial droop and slurred speech around 9:00 a.m. on 02/18, resolved prior to arrival. History of CVA in 2017 with residual left-sided facial droop. - admission for observation and telemetry - not candidate for thrombolytics or thrombectomy as the patient's symptoms have resolved - CXR: 1. Small interstitial and airspace opacities in the mid and lower lungs. Differential includes but is not limited to edema or pneumonia. Recommend follow-up to resolution. 2.There is a 1.5 cm nodular density projecting of the left lower hemithorax. Differential includes artifact from overlapping osseous structures versus pulmonary nodule. A chest CT is recommended. - CT Head: No acute intracranial abnormality - not candidate for CTA due to CKD/MARION - brain MRI w/wo ordered - neuro checks Q4 Poor history provided due to patient's verbal aggression and hostile behavior. However, he only reported dizziness which appears to be chronic for him related to vertigo and has been occurring since his stroke in 2017. Given witnessed dysarthria and facial droop, will proceed with MRI. (2) Diabetes mellitus type 2 in nonobese: Code(s): E11.9 - Type 2 diabetes mellitus without complications Status: Acute Assessment and Plan: Complicated by hypoglycemia, glucose 46 in the ED on 02/18. Given dextrose and improved to 139. He reports he has been having hypoglycemic episodes at home, unable to clarify how often and how low his glucose has been going at home. Diabetes medications are managed by his primary. - hypoglycemia protocol - POC blood glucose Q4H until stable -> ACHS - home medication: Hold Januvia, Trulicity, glipizide, farxiga, and Lantus home dose -> resume when appropriate. Started on Lantus only based off weight -> 18 units HS. 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 Unclear etiology, related to CHF exacerbation? - creatinine 3.77, BUN 59, GFR 15 upon admission on 02/18 - baseline coagulator: 1.8 - 2.2 - hx of CKD stage 4 - check CK, urine sodium, protein/creatinine, urea, and renal ultrasound - hold HCTZ, concern for CHF exacerbation on imaging but not well demonstrated on exam. awaiting echo prior to initiation of IV diuresis. - trend renal function - trend electrolytes, correct as needed (4) Diastolic congestive heart failure: Qualifiers: Heart failure chronicity: acute on chronic Qualified Code(s): I50.33 - Acute on chronic diastolic (congestive) heart failure Code(s): I50.30 - Unspecified diastolic (congestive) heart failure Status: Acute Assessment and Plan: - CXR concerning for possible edema, however no crackles on lung exam and trace edema to bilateral ankles on exam decrease concerns for volume overload. Will await echo prior to initiation of diuresis. - check BNP >> 2140, echo ordered - most recent echo (2020): Systolic function normal, estimated EF 60 65%, grade 1 diastolic dysfunction, hypokinesis of the basal and mid inferior wall as well as the mid septal area, LA enlargement, valvular disease noted. See report for details. - currently on HTZ, hold due to MARION. - monitor I&Os and daily weights - trend renal function (5) Mixed hyperlipidemia due to type 2 diabetes mellitus: Code(s): E11.69 - Type 2 diabetes mellitus with other specified complication; E78.2 - Mixed hyperlipidemia Status: Chronic Assessment and Plan: - continue statin (6) COPD (chronic obstructive pulmonary disease): Qualifiers: COPD type: unspecified COPD Qualified Code(s): J44.9 - Chronic obstructive pulmonary disease, unspecified Code(s): J44.9 - Chronic obstructive pulmonary disease, unspecified Status: Chronic Assessment and Plan: - no evidence of exacerbation - continue home medications: Breo (7) Hypertension associated with type 2 diabetes mellitus: Code(s): E11.59 - Type 2 diabetes mellitus with other circulatory complications; I15.2 - Hypertension secondary to endocrine disorders Status: Chronic Assessment and Plan: - chronic, stable, currently 144/55 - continue home medications: Coreg, clonidine, losartan. Hold HCTZ, due to MARION. - monitor Plan Diet: Diabetic GI Prophylaxis: N/a DVT Prophylaxis: Lovenox SQ IV fluids: 1L bolus -> 100 mL/hr x1L Lines/Tubes: Peripheral IV Code Status: Full code Quality VTE Prophylaxis VTE prophylaxis: pharmacologic ordered Hospitalist [facility] Advance Care Plan I have confirmed that the patient's Advanced Care Plan is present, code status is documented, or surrogate decision maker is listed in patient medical record.: Yes Medication Reconciliation I have utilized all available resources to obtain, update and review the patients current medications (includes all prescriptions, OTC, herbals, cannabis, and nutritional supplements).: Yes
[2025-02-18 15:10] LABS: Hemoglobin A1C 7.3 % (<5.7)
[2025-02-18 15:18] LABS: NT Pro B Type Natriuretic Pept 2140 pg/mL (19.9-100)
--- NOTE | 2025-02-18 15:46 | ADMGEN ---
This patient, Lv Henriquez, was admitted to Virtual Bed 3rd Floor-2. Patient/family oriented to hospital policies and general routines including ID bracelet, bed and alarms, visiting hours, pain management, procedures, bathroom and other care routines, personal items, smoking policy, room service/diet, and visiting hours. Information on how to activate the Rapid Response Team has been discussed. Patient/Family are encouraged to report perceived risks to care and to ask questions if they do not understand what they are told or what they should do.
[2025-02-18] MEDS: SODIUM CHLORIDE 0.9% IV 1,000 ML 100 ML IV CONT (18:30)
--- NOTE | 2025-02-18 23:40 | PC.NURSE ---
patient refusing meds yelling at staff to get out thank you goodbye, take the pills yourself patient waving hands in front of nurse face becoming physically animated. this nurse left the room notified charge nurse of patient actions.
[2025-02-19] VITALS (11 sets, daily range): BP systolic 160–185; BP diastolic 71–85; PULSE 72–85; RESP 16–22; TEMP 36.6–37.2; O2SAT 95–100
--- NOTE | 2025-02-19 | ECHO_ITS ---
Patient Info Name: Lv Henriquez Age: 84 years : 1940 Gender: Male Ht: 69 in Wt: 160 lbs BSA: 1.88 m2 HR: 79 bpm BP: 169 / 85 mmHg Heart Rhythm: Sinus Rhythm Technical Quality: Fair Exam Date: 02/19/2025 1:21 PM Patient Status: O Admit Date: 02/18/2025 Exam Type: CA echo doppler color flow Complete two-dimensional, color flow and Doppler transthoracic echocardiogram is performed. Staff Referring Physician: Lois Casas Mash Tub Cooker Operator: Vania Degroot Attending Provider: Biju Archer Summary 1. Complete two-dimensional, color flow and Doppler transthoracic echocardiogram is performed. 2. Mild left ventricular systolic dysfunction ejection fraction 40-45% by visual estimation. 3. Grade 1 diastolic noncompliance. 4. Sclerosis of the aortic valve with minimal stenosis valve area 1.9 cm2. 5. Mild mitral regurgitation. Left Ventricle Left ventricular chamber dimension is normal. Left ventricular systolic function is mildly reduced, estimated at 40-45. The left ventricular diastolic function is grade I diastolic dysfunction. Right Ventricle Right ventricular chamber dimension is normal. Left Atria Left atrial chamber dimension is normal. Right Atria Right atrial chamber dimension is normal. Aortic Valve The aortic valve is trileaflet. There is mild aortic valve sclerosis. There is mild aortic valve stenosis with a peak velocity of 136 cm/s, mean gradient of 5 mmHg, and aortic valve area of 1.9 cm2. Pulmonic Valve The pulmonic valve is not well visualized. Mitral Valve The mitral valve has normal leaflets. There is mild mitral valve regurgitation. Tricuspid Valve The tricuspid valve leaflets are normal. Pericardium/Pleural The pericardium appears normal. Aorta The aortic root size at the sinus of Valsalva is normal. Left Ventricular Outflow Tract Name Value Normal LVOT 2D LVOT Diameter 1.9 cm LVOT Doppler LVOT Peak Velocity 95 cm/s LVOT Peak Gradient 4 mmHg LVOT Mean Gradient 2 mmHg LVOT VTI 21 cm LVOT VTI/AV VTI Ratio 0.7 LVOT Stroke Volume 59 ml LVOT CO 11.3 l/min LVOT CI 6.0 l/min/m2 Pulmonic Valve Name Value Normal PV Doppler PV Peak Velocity 97 cm/s PV Peak Gradient 4 mmHg Mitral Valve Name Value Normal MV Diastolic Function MV E Peak Velocity 92 cm/s MV A Peak Velocity 108 cm/s MV E/A 0.8 MV Decel Time (PW) 204 ms MV Annular TDI MV E/e' (Septal) 12.5 MV E/e' (Lateral) 12.6 MV E/e' (Average) 12.5 Tricuspid Valve Name Value Normal TV Regurgitation Doppler TR Peak Velocity 240 cm/s TR Peak Gradient 23 mmHg Estimated PAP/RSVP RA Pressure 10 mmHg <=5 PA Systolic Pressure 33 mmHg <36 RV Systolic Pressure 33 mmHg <36 TV Annular TDI TV Lateral Nasreen s' Velocity 13.9 cm/s >=9.5 Aorta Name Value Normal Ascending Aorta Ao Root Diameter (MM) 3.4 cm Ao Root Diam Index (MM) 1.8 cm/m2 Aortic Valve Name Value Normal AV Doppler AV Peak Velocity 136 cm/s AV Peak Gradient 7 mmHg AV Mean Gradient 5 mmHg AV VTI 31 cm AV Area (Cont Eq VTI) 1.9 cm2 >=3.0 AV Area (Cont Eq Billy) 1.9 cm2 AV DI (Billy) 0.70 AV Regurgitation 2D LVOT Area 2.7 cm2 Ventricles Name Value Normal LV Dimensions 2D/MM IVS Diastolic Thickness (2D) 1.0 cm 0.6-1.0 LVID Diastole (2D) 4.8 cm 4.2-5.8 LVIW Diastolic Thickness (2D) 1.0 cm 0.6-1.0 LVID Systole (2D) 3.4 cm 2.5-4.0 LVOT Diameter 1.9 cm LV Mass (2D Cubed) 168.19 g 88.00-224.00 LV Mass Index (2D Cubed) 89 g/m2 49-115 Relative Wall Thickness (2D) 0.42 <=0.42 LV Fractional Shortening/Ejection Fraction 2D/MM LV Fractional Shortening (2D) 29 % 25-43 LV EF (2D Teichholz) 56 % LV Diastolic Volume (4C MOD) 94 ml LV EF (4C MOD) 28 % LV Diastolic Volume (2C MOD) 95 ml LV EF (2C MOD) 48 % LV Diastolic Volume (BP MOD) 95 ml 62-150 LV Diastolic Volume Index (BP MOD) 50 ml/m2 34-74 LV Systolic Volume (BP MOD) 60 ml 21-61 LV Systolic Volume Index (BP MOD) 32 ml/m2 11-31 LV EF (BP MOD) 36 % 52-72 LV Diastolic Length (4C) 7.6 cm LV Systolic Length (4C) 7.5 cm LV Stroke Volume (4C MOD) 26 ml RV Dimensions 2D/MM RVID Diastole (2D) 3.8 cm 2.1-3.5 Atria Name Value Normal LA Dimensions LA Dimension (MM) 4.2 cm 3.0-4.0 LA Volume (4C A-L) 54 ml LA Volume (BP A-L) 62 ml RA Dimensions RA Systolic Major Mccall Length (4C) 4.4 cm 2.1-2.7 RA Area (4C) 12.2 cm2 <=18.0 Report Signatures
--- NOTE | 2025-02-19 00:19 | PC.NURSE ---
noted that patient took his artificial eye out and threw it towards me hitting the side table and floor. demanding i pick it up i asked him to please have manners and use the word please. patient yelled please! patient refused a container at this time to keep it in.
[2025-02-19 06:09] LABS: Total Protein Urine Random 17 mg/dL; Ur Ttl Prot Creatinine Ratio 0.26 mg/mg (0-0.20)
[2025-02-19 06:10] LABS: Urea Random Urine 496 MG/DL
[2025-02-19 06:16] LABS: Hematocrit 31.5 % (42.0-52.0); Hemoglobin 9.8 g/dL (14.0-18.0); Immature Granulocyte Percent A 0.6 % (0-0.5); Lymphocytes Absolute Auto 0.62 K/mm3 (0.9-3.2); Mean Corpuscular HGB Conc 31.1 g/dl (32-36); Mean Corpuscular Hemoglobin 29.4 pg (26-34); Mean Corpuscular Volume 94.6 fl (80-100); Nucleated Red Blood Cells Absolute Auto 0.000 K/mm3 (0.0-0.012); Nucleated Red Blood Cells Perc 0.0 % (0.0-0.2); Platelet Count Result 142 k/mm3 (150-375); Red Blood Count 3.33 M/mm3 (4.6-6.20); White Blood Count 5.0 K/mm3 (4.5-10.0)
[2025-02-19 07:14] LABS: Alanine Aminotransferase 14 U/L (6-50); Albumin Level 3.1 g/dL (3.5-5.1); Alkaline Phosphatase 98 U/L (38-126); Anion Gap 7 mmol/L (4-12); Aspartate Amino Transferase 30 U/L (17-59); Bilirubin,Total 0.2 mg/dL (0.2-1.3); Blood Urea Nitrogen 48 mg/dL (9-20); Calcium 8.7 mg/dL (8.4-10.2); Carbon Dioxide 28 mmol/L (22-30); Chloride 107 mmol/L (98-107); Creatine Kinase 45 U/L (55-170); Estimated CRCL calculation 17 ml/min; Estimated Glomerular Filt Rate 20; Glucose 109 mg/dL (65-110); Potassium 3.7 mmol/L (3.4-5.0); Sodium 142 mmol/L (137-145); Total Protein 6.2 g/dL (6.3-8.2)
[2025-02-19] MEDS: FLUTICASONE/SALMETEROL 115-21 MCG INHALER 1 PUFF 2 PUFF INHALATION (07:28)
[2025-02-19] MEDS: FERROUS SULFATE 325 MG TABLET PO (08:31)
[2025-02-19] MEDS: LOSARTAN POTASSIUM 100 MG TABLET PO (08:31)
[2025-02-19] MEDS: ATORVASTATIN 40 MG TABLET 80 MG PO (08:31)
[2025-02-19] MEDS: PANTOPRAZOLE 40 MG TABLET PO (08:31)
[2025-02-19] MEDS: ASPIRIN 81 MG ENTERIC TABLET PO (08:31)
[2025-02-19] MEDS: ENOXAPARIN 30 MG/0.3 ML SYRINGE SUB-Q (08:32)
--- NOTE | 2025-02-19 09:19 | P.PNIM_ITS ---
Progress Note: A&P Assessment and Plan (1) Dizziness: Code(s): R42 - Dizziness and giddiness Status: Acute Assessment and Plan: Reported dizziness, has been ongoing for some time as history of vertigo. He denies facial droop or slurred speech, however friend noted these prior to arrival. Per patient he was talking to a friend in his garage when they noticed a facial droop and slurred speech around 9:00 a.m. on 02/18, resolved prior to arrival. History of CVA in 2017 - Possibly related to chronic vertigo vs hypoglycemia (see plan below) vs TIA vs CVA vs other - not candidate for thrombolytics or thrombectomy as the patient's symptoms have resolved - CT Head: No acute intracranial abnormality - not candidate for CTA due to CKD/MARION. Carotid duplex: 50-69% stenosis right ICA. No hemodynamically significant left ICA stenosis.Normal bilateral antegrade vertebral artery flow. - Brain MRI w/wo: Unchanged old infarct in the left frontal lobe and a few small old infarcts in the bilateral cerebellar hemispheres. No acute intracranial process. Small amount scattered nonspecific white matter T2 hyperintensity consistent with chronic small vessel ischemic disease. - neuro checks Q4 - Monitor CBC, CMP - Monitor blood pressure (2) Diabetes mellitus type 2 in nonobese: Code(s): E11.9 - Type 2 diabetes mellitus without complications Status: Acute Assessment and Plan: Complicated by hypoglycemia, glucose 46 in the ED on 02/18. Given dextrose with noted improvement. He reports he has been having hypoglycemic episodes at home, unable to clarify how often and how low his glucose has been going at home. Diabetes medications are managed by his primary. Likely due to patient being on long acting insulin and patient had not eaten breakfast with last meal being the night before - hypoglycemia protocol - POC blood glucose Q4H until stable -> ACHS - home medication: Hold Januvia 25 mg daily, Trulicity 1.5 weekly, glipizide 2.5 mg daily, farxiga 5 mg daily, and Lantus 23 units daily-> resume when appropriate. - correct regimen ordered - low dose TIDWM and lantus 18 units HS - A1C 7.4% on 09/07/2024, update >> 7.3% on 02/18 - community nutrition educator consulted (3) Diastolic congestive heart failure: Qualifiers: Heart failure chronicity: acute on chronic Qualified Code(s): I50.33 - Acute on chronic diastolic (congestive) heart failure Code(s): I50.30 - Unspecified diastolic (congestive) heart failure Status: Acute Assessment and Plan: - Current medications: currently on HTZ, hold due to MARION. - BNP 0 - CXR concerning for possible edema, however no crackles on lung exam and trace edema to bilateral ankles on exam decrease concerns for volume overload. Will await echo prior to initiation of diuresis given MARION. - Echo 2020: Normal systolic function with grade I diastolic dysfunction, hypokinesis of the basal and mid inferior wall as well as the mid septal area, LA enlargement, and valvular disease Repeat echo ordered - Monitor vital signs, I&Os, BUN/creatinine, daily weights, neuro status and patient is a fall risk - Monitor serum electrolytes, Keep serum Potassium>4 and serum Magnesium>2 and CBC (4) CKD stage 4 due to type 2 diabetes mellitus: Code(s): E11.22 - Type 2 diabetes mellitus with diabetic chronic kidney disease; N18.4 - Chronic kidney disease, stage 4 (severe) Status: Acute Assessment and Plan: MARION superimposed on CKD. Unclear etiology, possibly related to CHF exacerbation? Hx of CKD stage 4 Cr previously ranging 1.8 - 2.2 in 2023, no recent Cr levels to compare - creatinine 3.77, BUN 59, GFR 15 upon admission on 02/18 - CK and urine sodium unremarkable - Renal ultrasound Mild right-sided hydronephrosis. There is a 10.7 x 7.9 x 9.8 cm indeterminant cystic mass about the right kidney/liver. A CT of the abdomen and pelvis with contrast is recommended for further assessment. There is a 3 cm cyst in the inferior pole the right kidney. - Hold HCTZ, concern for CHF exacerbation on imaging but not well demonstrated on exam. Awaiting echo prior to initiation of IV diuresis. - trend renal function - trend electrolytes, correct as needed - Monitor I/O (5) COPD (chronic obstructive pulmonary disease): Qualifiers: COPD type: unspecified COPD Qualified Code(s): J44.9 - Chronic obstructive pulmonary disease, unspecified Code(s): J44.9 - Chronic obstructive pulmonary disease, unspecified Status: Chronic Assessment and Plan: - chronic lung nodules seen on imaging per family - no evidence of exacerbation - continue home medications: Breo (6) Hypertension associated with type 2 diabetes mellitus: Code(s): E11.59 - Type 2 diabetes mellitus with other circulatory complications; I15.2 - Hypertension secondary to endocrine disorders Status: Chronic Assessment and Plan: - chronic, continue home medications - Coreg 25 mg BID - clonidine 0.2 mg BID - losartan 100 mg daily - Hold HCTZ 12.5 mg daily, due to MARION. Resume as appropriate. - Blood pressures reviewed and remain stable, continue to monitor Plan Diet: Diabetic GI Prophylaxis: N/a DVT Prophylaxis: Lovenox SQ IV fluids: 1L bolus -> 100 mL/hr x1L Lines/Tubes: Peripheral IV Code Status: Full code Time Spent With Patient Time with patient: Greater than 35 minutes Subjective Date/time seen: 02/19/25 09:19 Interval history: 84 y/o M with PMH of TIA, DM2, HLD, CVA (2017, 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 Patient is sitting up comfortably in bed with at bedside. He continues to endorse dizziness. He has no other complaints denying chest pain, palpitations, shortness of breath, nausea/vomiting and abdominal pain. Patient is adamant that he wishes to go home today stating that he came for dizziness and that is not being treated. Discussed with patient that we are currently working up his dizziness with further imaging as well as following other medical issues including his hypoglycemia, kidney injury and pulmonary edema. He continues to want to go home. Discussed with patient that he is not stable for discharge from the medical standpoint and that he would be leaving AMA. Had a lengthy discussion with patient and family ( in the room and daughter on the phone) about the risks of leaving AMA up to and including . Review of Systems Review of Systems: All systems reviewed & are unremarkable except as noted in HPI and below Exam Narrative: AF HR 80 RR 18 SpO2 98 BP 160/71 General: male in no acute respiratory distress who is nontoxic appearing, sitting up in bed. HEENT: Normocephalic. Atraumatic. Extraocular movement intact. Sclera clear and anicteric. No facial asymmetry. Chest: Lungs are clear to auscultation bilaterally. No wheezes or crackles. CV: Heart was regular rate and rhythm. S1/S2. No murmurs, gallops, or rubs. Abd: Abdomen was soft. Nontender. Nondistended. Positive bowel sounds. Ext: No clubbing, cyanosis, or edema. DP pulses bilaterally. Neuro: Patient is alert and oriented x4. Strength is 5/5 in both upper and lower extremities with pushes/pulls and plantar/dorsal flexion. Cranial nerves 2-12 are intact. Speech is clear. Objective Data Vital Signs Vital Signs: Vital Signs - 24 hr 02/18/25 10:30 02/18/25 11:33 02/18/25 13:17 Temperature 97.8 F Pulse Rate 73 68 74 Respiratory Rate 18 14 18 Blood Pressure 195/94 H 178/98 H 144/55 H Pulse Oximetry 100 100 98 Oxygen Delivery Room Air Room Air Fraction of Inspired Oxygen 02/18/25 15:08 02/18/25 15:33 02/18/25 16:00 Temperature 97.6 F Pulse Rate 72 76 79 Respiratory Rate 13 17 Blood Pressure 135/70 155/94 H Pulse Oximetry 95 96 Oxygen Delivery Fraction of Inspired Oxygen 02/18/25 17:30 02/18/25 19:29 02/18/25 20:00 Temperature Pulse Rate 75 80 Respiratory Rate 20 Blood Pressure Pulse Oximetry 95 Oxygen Delivery Room Air Room Air Fraction of Inspired Oxygen 02/18/25 20:58 02/19/25 00:00 02/19/25 04:00 Temperature 98.1 F Pulse Rate 76 75 72 Respiratory Rate 18 Blood Pressure 151/69 H Pulse Oximetry 100 Oxygen Delivery Fraction of Inspired Oxygen 02/19/25 05:35 02/19/25 07:31 02/19/25 07:31 Temperature 97.8 F Pulse Rate 76 85 85 Respiratory Rate 22 H 17 Blood Pressure 169/85 H Pulse Oximetry 100 97 Oxygen Delivery Room Air Fraction of Inspired Oxygen 02/19/25 08:32 Temperature Pulse Rate 85 Respiratory Rate Blood Pressure Pulse Oximetry Oxygen Delivery Fraction of Inspired Oxygen Intake/Output Intake/Output: Intake & Output 02/16/25 02/17/25 02/18/25 02/19/25 23:59 23:59 23:59 23:59 Intake Total 1360 Output Total 500 Balance 1360 -500 Meds/Results Medications: Active Medications Generic Name Dose Route Start Last Admin Trade Name Freq PRN Reason Stop Dose Admin Aspirin 81 mg 02/19/25 09:00 02/19/25 08:31 Aspirin 81 Mg Enteric Tablet PO 81 mg QAM SAE Administration Atorvastatin Calcium 80 mg 02/19/25 09:00 02/19/25 08:31 Atorvastatin 40 Mg Tablet PO 80 mg DAILY SAE Administration Carvedilol 25 mg 02/18/25 21:20 02/19/25 08:32 Carvedilol 25 Mg Tablet PO 25 mg Q12HR SAE Administration Clonidine HCl 0.2 mg 02/18/25 21:25 02/19/25 08:51 Clonidine Hcl 0.2 Mg Tablet PO 0.2 mg Q12HR SAE Administration Dextrose 12.5 gm 02/18/25 13:42 Dextrose 50% 25 Gm/50 Ml Syringe IV PUSH PRN PRN Hypoglycemia Protocol Enoxaparin Sodium 30 mg 02/19/25 09:00 02/19/25 08:32 Enoxaparin 30 Mg/0.3 Ml Syringe SUB-Q 30 mg DAILY SAE Administration Ferrous Sulfate 325 mg 02/19/25 09:00 02/19/25 08:31 Ferrous Sulfate 325 Mg Tablet PO 325 mg DAILY SAE Administration Glucagon 1 mg 02/18/25 13:42 Glucagon For Inj 1 Mg Vial IM PRN PRN Hypoglycemia Protocol Glucose 15 gm 02/18/25 13:42 Glucose Oral Gel 15 Gm Of Glucse In 37.5 Gm Tube PO PRN PRN Hypoglycemia Protocol Dextrose 1,000 mls @ 100 mls/hr 02/18/25 13:42 Dextrose 5% 1,000 Ml IVPB PRN PRN Hypoglycemia Protocol Insulin Aspart 2 - 5 units 02/18/25 17:00 02/19/25 08:52 Insulin Aspart (*Bkc) 100 Units/Ml SUB-Q Not Given TIDWM [facility] Protocol Insulin Glargine 18 units 02/18/25 21:30 02/18/25 23:15 Insulin Glargine (*Bkc) 100 Units/Ml 0.25 units/kg (18 units) Not Given SUB-Q HS [facility] Losartan Potassium 100 mg 02/19/25 09:00 02/19/25 08:31 Losartan Potassium 100 Mg Tablet PO 100 mg DAILY SAE Administration Pantoprazole Sodium 40 mg 02/19/25 09:00 02/19/25 08:31 Pantoprazole 40 Mg Tablet PO 40 mg DAILY SAE Administration Perflutren Lipid Microsphere 0 ml 02/18/25 21:24 Perflutren Lipid Microspheres 1.5 Ml Vial Diluted To 10 Ml Total Volume IV PUSH 02/21/25 21:24 ONCE PRN adequate visualization Protocol Polyethylene Glycol 17 gm 02/18/25 21:17 Polyethylene Glycol 3350 17 Gm Powd.Pack PO QAM PRN Constipation Fluticasone/Salmeterol 2 puff 02/19/25 08:00 02/19/25 07:28 Fluticasone/Salmeterol 115-21 Mcg Inhaler 1 Puff INHALATION 2 puff Q12HRT SAE Administration Radiology Results: ITS Impressions Chest X-Ray 02/18/25 12:15 IMPRESSION: 1. Small interstitial and airspace opacities in the mid and lower lungs. Differential includes but is not limited to edema or pneumonia. Recommend follow-up to resolution. 2.There is a 1.5 cm nodular density projecting of the left lower hemithorax. Differential includes artifact from overlapping osseous structures versus pulmonary nodule. A chest CT is recommended. Head CT 02/18/25 12:15 Impression: 1.No acute intracranial abnormality. Labs Labs: Laboratory Results - last 24 hr 02/18/25 02/18/25 02/18/25 12:02 12:53 13:38 WBC 10.4 H RBC 3.78 L Hgb 11.0 L Hct 34.7 L MCV 91.8 MCH 29.1 MCHC 31.7 L RDW 14.0 Plt Count 194 MPV 10.1 Immature Gran % (Auto) 0.5 Neut % (Auto) 76.3 H Lymph % (Auto) 11.9 L [place] % (Auto) 6.8 Eos % (Auto) 3.6 Baso % (Auto) 0.9 Lymph # (Auto) 1.24 [place] # (Auto) 0.7 H Eos # (Auto) 0.4 H Baso # (Auto) 0.1 Abs Immat Gran (auto) 0.05 H Absolute Neuts (auto) 8.0 H Absolute Nucleated RBC 0.000 Nucleated RBC % 0.0 PT 15.0 H INR 1.2 APTT 27.9 Sodium 137 Potassium 3.6 Chloride 102 Carbon Dioxide 29 Anion Gap 6 BUN 59 H Creatinine 3.77 H Estim Creat Clear Calc 7 Estimated GFR 15 L Glucose 46 L* POC Capillary Glucose 57 L* 139 H Hemoglobin A1c 7.3 H Calcium 9.2 Total Bilirubin 0.5 AST 28 ALT 18 Alkaline Phosphatase 94 Total Creatine Kinase Troponin I < 0.012 NT-Pro-B Natriuret Pep 2140 H Total Protein 7.1 Albumin 3.8 U Random Total Protein Ur Random Sodium Ur Random Urea Urine Creatinine Protein/Creat Ratio 2 02/18/25 02/18/25 02/19/25 15:03 21:00 05:24 WBC 5.0 RBC 3.33 L Hgb 9.8 L Hct 31.5 L MCV 94.6 MCH 29.4 MCHC 31.1 L RDW 14.1 Plt Count 142 L MPV 10.7 H Immature Gran % (Auto) 0.6 H Neut % (Auto) 70.4 Lymph % (Auto) 12.4 L [place] % (Auto) 9.6 H Eos % (Auto) 6.2 H Baso % (Auto) 0.8 Lymph # (Auto) 0.62 L [place] # (Auto) 0.5 Eos # (Auto) 0.3 Baso # (Auto) 0.0 Abs Immat Gran (auto) 0.03 Absolute Neuts (auto) 3.5 Absolute Nucleated RBC 0.000 Nucleated RBC % 0.0 PT INR APTT Sodium 142 Potassium 3.7 Chloride 107 Carbon Dioxide 28 Anion Gap 7 BUN 48 H D Creatinine 3.05 H Estim Creat Clear Calc 17 Estimated GFR 20 L Glucose 109 POC Capillary Glucose 97 163 H Hemoglobin A1c Calcium 8.7 Total Bilirubin 0.2 AST 30 ALT 14 Alkaline Phosphatase 98 Total Creatine Kinase 45 L Troponin I NT-Pro-B Natriuret Pep Total Protein 6.2 L Albumin 3.1 L U Random Total Protein Ur Random Sodium Ur Random Urea Urine Creatinine Protein/Creat Ratio 2 02/19/25 02/19/25 05:35 08:42 WBC RBC Hgb Hct MCV MCH MCHC RDW Plt Count MPV Immature Gran % (Auto) Neut % (Auto) Lymph % (Auto) [place] % (Auto) Eos % (Auto) Baso % (Auto) Lymph # (Auto) [place] # (Auto) Eos # (Auto) Baso # (Auto) Abs Immat Gran (auto) Absolute Neuts (auto) Absolute Nucleated RBC Nucleated RBC % PT INR APTT Sodium Potassium Chloride Carbon Dioxide Anion Gap BUN Creatinine Estim Creat Clear Calc Estimated GFR Glucose POC Capillary Glucose 111 H Hemoglobin A1c Calcium Total Bilirubin AST ALT Alkaline Phosphatase Total Creatine Kinase Troponin I NT-Pro-B Natriuret Pep Total Protein Albumin U Random Total Protein 17 Ur Random Sodium 106 Ur Random Urea 496 Urine Creatinine 66.5 Protein/Creat Ratio 2 0.26 H Quality VTE Prophylaxis VTE prophylaxis: pharmacologic ordered
[2025-02-19] MEDS: INSULIN ASPART (*BKC) 100 UNITS/ML SUB-Q (12:12)
--- NOTE | 2025-02-19 20:57 | PCRCNOTE ---
pt refused chanell dunawayi and stated that he only takes it in the morning at home
[2025-02-19] MEDS: INSULIN GLARGINE (*BKC) 100 UNITS/ML 18 UNITS SUB-Q (21:48)
[2025-02-20] VITALS (7 sets, daily range): BP systolic 163; BP diastolic 82; PULSE 72–82; RESP 16–19; TEMP 37.1; O2SAT 96–97; BMI 23.5
[2025-02-20] MEDS: FLUTICASONE/SALMETEROL 115-21 MCG INHALER 1 PUFF 2 PUFF INHALATION (07:47)
[2025-02-20] MEDS: ENOXAPARIN 30 MG/0.3 ML SYRINGE SUB-Q (09:01)
[2025-02-20] MEDS: ASPIRIN 81 MG ENTERIC TABLET PO (09:02)
[2025-02-20] MEDS: PANTOPRAZOLE 40 MG TABLET PO (09:02)
[2025-02-20] MEDS: FERROUS SULFATE 325 MG TABLET PO (09:02)
[2025-02-20] MEDS: LOSARTAN POTASSIUM 100 MG TABLET PO (09:02)
[2025-02-20] MEDS: ATORVASTATIN 40 MG TABLET 80 MG PO (09:02)
[2025-02-20 10:20] LABS: Hematocrit 34.0 % (42.0-52.0); Hemoglobin 10.3 g/dL (14.0-18.0); Mean Corpuscular HGB Conc 30.3 g/dl (32-36); Mean Corpuscular Hemoglobin 28.8 pg (26-34); Mean Corpuscular Volume 95.0 fl (80-100); Platelet Count Result 126 k/mm3 (150-375); Red Blood Count 3.58 M/mm3 (4.6-6.20); White Blood Count 4.7 K/mm3 (4.5-10.0)
[2025-02-20 10:48] LABS: Alanine Aminotransferase 17 U/L (6-50); Albumin Level 3.3 g/dL (3.5-5.1); Alkaline Phosphatase 102 U/L (38-126); Anion Gap 6 mmol/L (4-12); Aspartate Amino Transferase 23 U/L (17-59); Bilirubin,Total 0.4 mg/dL (0.2-1.3); Blood Urea Nitrogen 43 mg/dL (9-20); Calcium 8.9 mg/dL (8.4-10.2); Carbon Dioxide 27 mmol/L (22-30); Chloride 105 mmol/L (98-107); Estimated CRCL calculation 19 ml/min; Estimated Glomerular Filt Rate 22; Glucose 269 mg/dL (65-110); Potassium 4.4 mmol/L (3.4-5.0); Sodium 138 mmol/L (137-145); Total Protein 6.3 g/dL (6.3-8.2)
--- NOTE | 2025-02-20 11:56 | PM.DS ---
DS: Admitting Diagnosis Discharge Date 02/20 Admitting Diagnosis dizzy DS: Discharge Diagnosis Discharge Diagnosis (1) Dizziness: Code(s): R42 - Dizziness and giddiness Status: Acute (2) Diabetes mellitus type 2 in nonobese: Code(s): E11.9 - Type 2 diabetes mellitus without complications Status: Acute (3) Diastolic congestive heart failure: Qualifiers: Heart failure chronicity: acute on chronic Qualified Code(s): I50.33 - Acute on chronic diastolic (congestive) heart failure Code(s): I50.30 - Unspecified diastolic (congestive) heart failure Status: Acute Assessment and Plan: - (4) CKD stage 4 due to type 2 diabetes mellitus: Code(s): E11.22 - Type 2 diabetes mellitus with diabetic chronic kidney disease; N18.4 - Chronic kidney disease, stage 4 (severe) Status: Acute (5) COPD (chronic obstructive pulmonary disease): Qualifiers: COPD type: unspecified COPD Qualified Code(s): J44.9 - Chronic obstructive pulmonary disease, unspecified Code(s): J44.9 - Chronic obstructive pulmonary disease, unspecified Status: Chronic (6) Hypertension associated with type 2 diabetes mellitus: Code(s): E11.59 - Type 2 diabetes mellitus with other circulatory complications; I15.2 - Hypertension secondary to endocrine disorders Status: Chronic DS: Summary Hospital Course Hospital Course: 84 y/o M with PMH of TIA, DM2, HLD, CVA (2017, 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 02/20 pt is feeling well and insisting on discharge. Several problems were addressed: # dizziness Reported dizziness, has been ongoing for some time as history of vertigo. He denies facial droop or slurred speech, however friend noted these prior to arrival. Per patient he was talking to a friend in his garage when they noticed a facial droop and slurred speech around 9:00 a.m. on 02/18, resolved prior to arrival. History of CVA in 2017 - Possibly related to chronic vertigo vs hypoglycemia (see plan below) vs TIA vs CVA vs other - not candidate for thrombolytics or thrombectomy as the patient's symptoms have resolved - CT Head: No acute intracranial abnormality - not candidate for CTA due to CKD/MARION. Carotid duplex: 50-69% stenosis right ICA. No hemodynamically significant left ICA stenosis.Normal bilateral antegrade vertebral artery flow. - Brain MRI w/wo: Unchanged old infarct in the left frontal lobe and a few small old infarcts in the bilateral cerebellar hemispheres. No acute intracranial process. Small amount scattered nonspecific white matter T2 hyperintensity consistent with chronic small vessel ischemic disease. - neuro checks Q4 - Monitor CBC, CMP - Monitor blood pressure # T2dm Complicated by hypoglycemia, glucose 46 in the ED on 02/18. Given dextrose with noted improvement. He reports he has been having hypoglycemic episodes at home, unable to clarify how often and how low his glucose has been going at home. Diabetes medications are managed by his primary. Likely due to patient being on long acting insulin and patient had not eaten breakfast with last meal being the night before - hypoglycemia protocol - POC blood glucose Q4H until stable -> ACHS - home medication: Hold Januvia 25 mg daily, Trulicity 1.5 weekly, glipizide 2.5 mg daily, farxiga 5 mg daily, and Lantus 23 units daily-> resume when appropriate. - correct regimen ordered - low dose TIDWM and lantus 18 units HS - A1C 7.4% on 09/07/2024, update >> 7.3% on 02/18 - financial internship consulted- pt is to f/u as an outpt to learn more about diet and meal planning. HOME REGIME: HOLD GLIPIZIDE, RESUME JANUVIA, TRULICITY AND FARXIGA. CONTINUE LANTUS 18 UNITS. Pt will need a close f/u with respiratory care instructor, monitor BS in am and keep log- goal 80-130. If low/high- need to reach out to pcp or respiratory care instructor right away for further instructions. Stay hydrated. Will need labs (kidney function) repeated within the next few days to ensure continuous improvement. # CHF Current medications: currently on HTZ, hold due to MARION. - BNP 0 - CXR concerning for possible edema, however no crackles on lung exam and trace edema to bilateral ankles on exam decrease concerns for volume overload. Will await echo prior to initiation of diuresis given MARION. - Echo 2020: Normal systolic function with grade I diastolic dysfunction, hypokinesis of the basal and mid inferior wall as well as the mid septal area, LA enlargement, and valvular disease Repeat echo ordered - Monitor vital signs, I&Os, BUN/creatinine, daily weights, neuro status and patient is a fall risk - Monitor serum electrolytes, Keep serum Potassium>4 and serum Magnesium>2 and CBC # CKD with marion MARION superimposed on CKD. Unclear etiology, possibly related to CHF exacerbation? Hx of CKD stage 4 Cr previously ranging 1.8 - 2.2 in 2023, no recent Cr levels to compare - creatinine 3.77, BUN 59, GFR 15 upon admission on 02/18 - CK and urine sodium unremarkable - Renal ultrasound Mild right-sided hydronephrosis. There is a 10.7 x 7.9 x 9.8 cm indeterminant cystic mass about the right kidney/liver. A CT of the abdomen and pelvis with contrast is recommended for further assessment. There is a 3 cm cyst in the inferior pole the right kidney. - Hold HCTZ, concern for CHF exacerbation on imaging but not well demonstrated on exam. Awaiting echo prior to initiation of IV diuresis. Summary 1. Complete two-dimensional, color flow and Doppler transthoracic echocardiogram is performed. 2. Mild left ventricular systolic dysfunction ejection fraction 40-45% by visual estimation. 3. Grade 1 diastolic noncompliance. 4. Sclerosis of the aortic valve with minimal stenosis valve area 1.9 cm2. 5. Mild mitral regurgitation. Will need a close f/u with hyperion analyst and lens hardener after discharge # copd - chronic lung nodules seen on imaging per family - no evidence of exacerbation - continue home medications: Breo # HTN - chronic, continue home medications - Coreg 25 mg BID - clonidine 0.2 mg BID - losartan 100 mg daily - Hold HCTZ 12.5 mg daily, due to MARION. Resume as discharged. Need close monitoring for kidney function and close f/u with hyperion analyst. Status at Discharge Functional status at discharge: uses cane/walker Overall status at discharge: patient is progressing back to baseline Time Spent with Patient Time attestation: Total time spent providing and/or coordinating discharge services: Time spent: Greater than 30 minutes Exam Narrative: General: male in no acute respiratory distress who is nontoxic appearing, sitting up in bed. HEENT: Normocephalic. Atraumatic. Extraocular movement intact. Sclera clear and anicteric. No facial asymmetry. Chest: Lungs are clear to auscultation bilaterally. No wheezes or crackles. CV: Heart was regular rate and rhythm. S1/S2. No murmurs, gallops, or rubs. Abd: Abdomen was soft. Nontender. Nondistended. Positive bowel sounds. Ext: No clubbing, cyanosis, or edema. DP pulses bilaterally. Neuro: Patient is alert and oriented x4. Strength is 5/5 in both upper and lower extremities with pushes/pulls and plantar/dorsal flexion. Cranial nerves 2-12 are intact. Speech is clear. Const: General: comfortable and no acute distress Other: , male, elderly, nontoxic appearance HENMT: Face/Nose/Sinus: Normal nares present Mouth: Yes moist mucous membranes Eyes: General: appearance normal, both eyes and all related structures Sclera: sclerae normal Pupils: Equal, round and reactive pupils present EOM: EOMs intact bilaterally Resp: Effort & Inspection: normal respiratory effort Auscultation: clear to auscultation bilaterally Cardio: Rate: regular rate Rhythm: regular rhythm Other: S1-S2 present without murmur, rub, ectopy GI: Other: Unable to examine abdomen as the patient refused. Skin: General skin exam: normal color and no rashes or lesions noted Wounds: no wounds Neuro: Cranial nerves: Yes Equal, round and reactive pupils present Speech: normal speech Other: A&O x4, limited due to refusal. Extrem: Other: Trace edema to bilateral ankles, symmetric and nonpitting. Psych: Attitude: Belligerent attititude/behavior present Other: Patient verbally aggressive, hostile, refused to answer most questions and expressed anger at being admitted. Displaying threatening gestures including pointing fingers and placing hands near providers face. DS: Data Data Completed and Pending Labs on day of discharge: Labs from last 24 hours 02/20/25 02/20/25 02/20/25 11:18 10:14 08:34 WBC 4.7 RBC 3.58 L Hgb 10.3 L Hct 34.0 L MCV 95.0 MCH 28.8 MCHC 30.3 L RDW 14.1 Plt Count 126 L MPV 10.8 H Sodium 138 Potassium 4.4 Chloride 105 Carbon Dioxide 27 Anion Gap 6 BUN 43 H Creatinine 2.74 H Estim Creat Clear Calc 19 Estimated GFR 22 L Glucose 269 H POC Capillary Glucose 283 H 148 H Calcium 8.9 Total Bilirubin 0.4 AST 23 ALT 17 Alkaline Phosphatase 102 Total Protein 6.3 Albumin 3.3 L 02/19/25 02/19/25 20:41 16:39 WBC RBC Hgb Hct MCV MCH MCHC RDW Plt Count MPV Sodium Potassium Chloride Carbon Dioxide Anion Gap BUN Creatinine Estim Creat Clear Calc Estimated GFR Glucose POC Capillary Glucose 217 H 131 H Calcium Total Bilirubin AST ALT Alkaline Phosphatase Total Protein Albumin Discharge Plan Discharge Attending physician on discharge: Mitch Jewell Consulting providers: Carissa Guidry Discharging Clinician: Caroline Gibbons Patient Disposition: Home Activity: september shower Diet: diabetic Discharge Instructions: You were admitted for dizziness and hypoglycemia. Possibly related to chronic vertigo or recent episodes of hypoglycemia - CT Head was unremarkable - Brain MRI w/wo: Unchanged old infarct in the left frontal lobe and a few small old infarcts in the bilateral cerebellar hemispheres. No acute intracranial process. # T2dm Complicated by hypoglycemia, glucose 46 in the ED on 02/18. Likely due to multiple diabetic meds (insulin and glipizide) being on long acting insulin and patient had not eaten breakfast with last meal being the night before - financial internship consulted- please f/u as an outpt to learn more about diet and meal planning. HOME REGIME: HOLD GLIPIZIDE, RESUME JANUVIA, TRULICITY AND FARXIGA. CONTINUE LANTUS 18 UNITS at bedtime. YOu will need a close f/u with respiratory care instructor, monitor BS in am and keep log- goal 80-130. If low/high- need to reach out to pcp or respiratory care instructor right away for further instructions. Stay hydrated. Will need labs (kidney function) repeated within the next few days to ensure continuous improvement. Patient Instructions: Antibiotic Form Patient Language: Vincentian Stand Alone Forms: General Discharge Information Follow-up/Referrals: Wyatt Price DO [Primary Care Provider, Family Practice] - 1 Week Discharge Medications: New dextrose [Glutose-15] 40 % Gel 15 g PO PRN PRN (Reason: Hypoglycemia) Qty: 30 0RF insulin degludec 100 unit/mL (3 mL) insulin pen 18 unit subcut HS Qty: 15 0RF insulin degludec 100 unit/mL (3 mL) insulin pen 18 unit subcut HS Qty: 15 0RF Continued ferrous sulfate 324 mg (65 mg iron) Tablet,Delayed Release (Dr/Ec) 324 mg PO DAILY losartan 100 mg tablet 100 mg PO DAILY Qty: 90 2RF Farxiga 5 mg tablet 5 mg PO DAILY Qty: 90 1RF Patient Comments: holding for procedure Januvia 25 mg tablet 25 mg PO DAILY Qty: 90 1RF Rx Instructions: Take 1 tablet by mouth daily. fluticasone furoate-vilanterol [Breo Ellipta] 100-25 mcg/dose blister with device See Rx Instructions .ROUTE .COMPLEX Qty: 60 0RF Dose Instruction: INHALE 1 PUFF BY MOUTH DAILY FOR SHORTNESS OF BREATH Rx Instructions: INHALE 1 PUFF BY MOUTH DAILY FOR SHORTNESS OF BREATH hydrochlorothiazide 12.5 mg tablet 12.5 mg PO DAILY Qty: 90 1RF atorvastatin 80 mg tablet 80 mg PO DAILY Qty: 90 1RF Rx Instructions: Take 1 tablet by mouth daily. carvedilol [Coreg] 25 mg tablet 25 mg PO Q12H 90 Days Qty: 180 1RF Rx Instructions: must administer with a meal/food pantoprazole 40 mg tablet,delayed release (DR/EC) 40 mg PO DAILY Qty: 90 1RF (DME) blood sugar diagnostic Strip See Rx Instructions .Route Qty: 100 1RF Rx Instructions: use daily for blood glucose monitoring aspirin 81 mg tablet 81 mg PO DAILY Qty: 90 3RF clonidine HCl 0.2 mg tablet 0.2 mg PO BID 90 Days Qty: 180 1RF Trulicity 1.5 mg/0.5 mL pen injector See Rx Instructions .ROUTE .COMPLEX Qty: 2 0RF Dose Instruction: ADMINISTER 1.5 MG UNDER THE SKIN WEEKLY Patient Comments: Takes on Tuesdays Rx Instructions: ADMINISTER 1.5 MG UNDER THE SKIN WEEKLY polyethylene glycol 3350 [Miralax] 17 gram Powder In Packet 17 g PO QAM PRN (Reason: Constipation) Qty: 30 0RF Discontinued glipizide 2.5 mg tablet 2.5 mg PO DAILY Qty: 90 1RF insulin glargine [Lantus Solostar U-100 Insulin] 100 unit/mL (3 mL) insulin pen See Rx Instructions .ROUTE .COMPLEX Qty: 15 3RF Dose Instruction: INJECT 23 UNITS UNDER THE SKIN ONCE DAILY Rx Instructions: INJECT 23 UNITS UNDER THE SKIN ONCE DAILY Other Ambulatory Orders: Comprehensive Metabolic Panel (Routine) Timeframe: 1 Week Location: Determined by Patient Ordered By: Caroline Gibbons Date of admission: 02/18/25 13:42 Primary Care Provider: Wyatt Price Admitting Provider: Biju Archer Attending physician on admission: Biju Archer Condition: Stable Quality VTE Prophylaxis VTE prophylaxis: pharmacologic ordered Hospitalist MIPS Heart Failure (Exclusion) Patient has history of Heart Transplant or Left Ventricular Assistive Device?: No IF YES, STOP HERE Heart Failure (Qualifier) Patient has current or prior documentation of LVEF less than or equal to 40%, or mod/servere depressed LVSF?: No IF NO, STOP HERE
[2025-02-20] MEDS: INSULIN ASPART (*BKC) 100 UNITS/ML SUB-Q (12:38)
--- NOTE | 2025-03-01 16:14 | PCCDE ---
03/01/25: Attempted DM Educator follow up call - message left including both DCES' direct call back numbers.
== END 2025-02-20 13:40 | disposition home or self-care (01) ==
LOC: ANHED 12:45 → ANH3MEDSUR 15:39 → ANH3MED 21:41 → ANH3MEDSUR 02-21 07:33
PROVIDERS: Nurse Practitioner; Physician Assistant; Student in an Organized Health Care Education/Training Program; Admitting Provider Internal Medicine; Emergency Provider Emergency Medicine; PCP Family Medicine; Visit Provider General Practice
DX: R42 Dizziness and giddiness (principal); E11.649 Type 2 diabetes mellitus with hypoglycemia without coma; I50.33 Acute on chronic diastolic (congestive) heart failure; E78.2 Mixed hyperlipidemia; E11.22 Type 2 diabetes mellitus with diabetic chronic kidney disease; I13.0 Hypertensive heart and chronic kidney disease with heart failure and stage 1 through stage 4 chronic kidney disease, or unspecified chronic kidney disease; J44.9 Chronic obstructive pulmonary disease, unspecified; N18.4 Chronic kidney disease, stage 4 (severe); I25.10 Atherosclerotic heart disease of native coronary artery without angina pectoris; Z95.5 Presence of coronary angioplasty implant and graft; Z95.1 Presence of aortocoronary bypass graft; Z83.3 Family history of diabetes mellitus; Z82.49 Family history of ischemic heart disease and other diseases of the circulatory system; Z87.891 Personal history of nicotine dependence; Z86.73 Personal history of transient ischemic attack (TIA), and cerebral infarction without residual deficits; Z79.82 Long term (current) use of aspirin; Z79.85 Long-term (current) use of injectable non-insulin antidiabetic drugs; Z79.4 Long term (current) use of insulin; Z79.84 Long term (current) use of oral hypoglycemic drugs
CPT/HCPCS: 36415; 70450; 70551; 71045; 76770; 80053; 82550; 82570; 82948; 83036; 83880; 84156; 84300; 84484; 84540; 85025; 85027; 85610; 85730; 93005; 93306; 93880; 94640; 96361; 96372; 96374; 99285; A9270; G0378; J1650; J1815; J7030